=== PATIENT | female | born 1980 | race African-American/Black ===

== ENCOUNTER 2017-04-04 09:58 | Emergency (ER) | payer SELFPAY ==
[~2017-04-04] VITALS: Ht 175.3 cm; Wt 74.8 kg
[~2017-04-04 09:58] MED LIST: ASCO500T2 PO; ASPI-612 PO; CARV6.252 PO; DOCU-109 PO; FERR325T72 PO; FURO40TA4 PO; HYDR-2678 PO; LISI-338 PO; SPIR25TA3 PO
--- NOTE | 2017-04-04 10:25 | RAD ---
Indication chest pain and shortness of breath. A single view of the chest was obtained. Comparison is made to an examination 11/17/2015. The heart, pulmonary vessels and mediastinum appear unremarkable. A focal infiltrate is not seen. Significant pleural fluid is not present. There is no pneumothorax. IMPRESSION: No acute finding apparent in the chest
[2017-04-04] MEDS ORDERED: fentaNYL PF VIAL 100 MCG/2 ML VIAL IV ONE (10:30)
[2017-04-04 10:35] LABS: BASO # 0.1 x10^3/uL (0.0-0.2); BASO % 2 % (0-3); EOS % 4 % (0-3); HEMATOCRIT 29.3 % (36.0-47.0); HEMOGLOBIN 9.5 g/dL (12.0-15.5); LYMPH # 1.4 x10^3/uL (1.0-4.8); LYMPH % 36 % (24-48); MEAN CORPUSCULAR HEMOGLOBIN 25 pg (25-35); MEAN CORPUSCULAR HGB CONC 32 g/dL (31-37); MEAN CORPUSCULAR VOLUME 77 fL (79-100); MONO % 9 % (0-9); NEUT % 49 % (31-73); PLATELET COUNT 238 x10^3/uL (140-400); RED CELL DISTRIBUTION WIDTH 18.4 % (11.5-14.5); WHITE BLOOD COUNT 3.8 x10^3/uL (4.0-11.0)
--- NOTE | 2017-04-04 10:35 | PHYS DOC ---
Past Medical History Past Medical History: CHF, Hypertension, Other Additional Past Medical Histor: cardiomyopathy Past Surgical History: Other Additional Past Surgical Histo: cardiac cath Alcohol Use: Occasionally Drug Use: Marijuana Adult General Chief Complaint Chief Complaint: chest pain HPI HPI Patient is a 36 year old female who presents with 2 weeks of chest pain. The pain has been primarily constant in nature, nonradiating, left-sided of her chest, worsens with deep inspiration and cough, certain ways she stands. She denies any relieving factors. She's not been taking any of her medications for about 1 year. Patient has history of dilated cardiomyopathy with diastolic dysfunction. She had a negative heart catheter in June 2016. She previously was seen by Dr. Sutherland for her cardiac dysfunction. Patient denies any history of PE or DVT, unsure if she is supposed to be on blood thinners. She has not been taking anything for her symptoms. She states she's noncompliant with her CHF meds because she didn't like the way it made her feel. Review of Systems Review of Systems Constitutional: Denies fever or chills [] Eyes: Denies change in visual acuity, redness, or eye pain [] HENT: Denies nasal congestion or sore throat [] Respiratory: reports cough, reports exursional dypsnea Cardiovascular: No additional information not addressed in HPI [] GI: Denies abdominal pain, nausea, vomiting, bloody stools or diarrhea [] : Denies dysuria or hematuria [] Musculoskeletal: Denies back pain or joint pain [] Integument: Denies rash or skin lesions [] Neurologic: Denies headache, focal weakness or sensory changes [] Current Medications Current Medications Current Medications Medications (Trade) Dose Ordered Sig/[facility] Start Time Stop Time Status Last Admin Dose Admin Fentanyl Citrate (Fentanyl 2ml Vial) 50 mcg 1X ONCE 04/04/17 10:30 04/04/17 10:31 DC 04/04/17 11:03 50 MCG Allergies Allergies Allergies Coded Allergies Type Severity Reaction Last Updated Verified tramadol Allergy Severe Anaphylaxis 11/17/15 Yes Physical Exam Physical Exam Constitutional: Well developed, well nourished, no acute distress, non-toxic appearance. [] HENT: Normocephalic, atraumatic, bilateral external ears normal, oropharynx moist, no oral exudates, nose normal. [] Eyes: PERRLA, EOMI, conjunctiva normal, no discharge. [] Neck: Normal range of motion, no tenderness, supple, no stridor. [] Cardiovascular:Heart rate regular with regular rhythm, no murmur [] Lungs & Thorax: Bilateral breath sounds clear to auscultation , no wheeze or crackles Abdomen: Bowel sounds normal, soft, no tenderness, no masses, no pulsatile masses. [] Skin: Warm, dry, no erythema, no rash. [] Back: No tenderness, no CVA tenderness. [] Extremities: No tenderness, no cyanosis, no clubbing, ROM intact, no edema. [] Neurologic: Alert and oriented X 3, normal motor function, normal sensory function, no focal deficits noted. [] Psychologic: Affect normal, judgement normal, mood normal. [] Current Patient Data Vital Signs Vital Signs Date Time Temp Pulse Resp B/P (MAP) Pulse Ox O2 Delivery O2 Flow Rate FiO2 04/04/17 12:17 74 20 142/90 (107) 98 Room Air 04/04/17 10:05 98.4 98.4 Lab Values Laboratory Tests Test 04/04/17 10:00 04/04/17 10:04 04/04/17 10:14 04/04/17 10:18 White Blood Count 3.8 x10^3/uL (4.0-11.0) L Red Blood Count 3.80 x10^6/uL (3.50-5.40) Hemoglobin 9.5 g/dL (12.0-15.5) L Hematocrit 29.3 % (36.0-47.0) L Mean Corpuscular Volume 77 fL (79-100) L Mean Corpuscular Hemoglobin 25 pg (25-35) Mean Corpuscular Hemoglobin Concent 32 g/dL (31-37) Red Cell Distribution Width 18.4 % (11.5-14.5) H Platelet Count 238 x10^3/uL (140-400) Neutrophils (%) (Auto) 49 % (31-73) Lymphocytes (%) (Auto) 36 % (24-48) Monocytes (%) (Auto) 9 % (0-9) Eosinophils (%) (Auto) 4 % (0-3) H Basophils (%) (Auto) 2 % (0-3) Neutrophils # (Auto) 1.9 x10^3uL (1.8-7.7) Lymphocytes # (Auto) 1.4 x10^3/uL (1.0-4.8) Monocytes # (Auto) 0.3 x10^3/uL (0.0-1.1) Eosinophils # (Auto) 0.2 x10^3/uL (0.0-0.7) Basophils # (Auto) 0.1 x10^3/uL (0.0-0.2) Sodium Level 140 mmol/L (136-145) Potassium Level 4.2 mmol/L (3.5-5.1) Chloride Level 107 mmol/L (98-107) Carbon Dioxide Level 28 mmol/L (21-32) Anion Gap 5 (6-14) L 17 mmol/L (6-14) H Blood Urea Nitrogen 10 mg/dL (7-20) Creatinine 0.8 mg/dL (0.6-1.0) Estimated GFR (Cockcroft-Gault) 98.8 BUN/Creatinine Ratio 13 (6-20) Glucose Level 93 mg/dL (70-99) 87 mg/dL (70-99) Calcium Level 8.6 mg/dL (8.5-10.1) Magnesium Level 1.9 mg/dL (1.8-2.4) Total Bilirubin 0.3 mg/dL (0.2-1.0) Aspartate Amino Transferase (AST) 17 U/L (15-37) Alanine Aminotransferase (ALT) 19 U/L (14-59) Alkaline Phosphatase 57 U/L (46-116) XL-Uou-H-Type Natriuretic Peptide 724 pg/mL (0-124) H Total Protein 7.2 g/dL (6.4-8.2) Albumin 3.6 g/dL (3.4-5.0) Albumin/Globulin Ratio 1.0 (1.0-1.7) POC Urine HCG, Qualitative Hcg negative (Negative) POC Troponin I 0.00 ng/ml (<0.08) POC Hemoglobin 11.2 g/dL (12-15) L POC Hematocrit 33 % (36-40) L POC Sodium 142 mmol/L (135-145) POC Potassium 4.0 mmol/L (3.5-5.0) POC Chloride 104 mmol/L (98-110) POC Total CO2 26 mmol/L (23-32) POC Blood Urea Nitrogen 8 mg/dL (8-26) POC Creatinine 0.8 mg/dL (0.5-1.4) POC Ionized Calcium (Richard) 1.21 mmol/L (1.13-1.32) Laboratory Tests 04/04/17 10:00 Laboratory Tests 04/04/17 10:00 04/04/17 10:18 EKG EKG 68 bpm, sinus, normal axis, QTC 542, no ST elevation or depression, T waves nonischemic, interpreted by me[] Radiology/Procedures Radiology/Procedures CXR: no acute finding in chest per Dr. Rowley[] Course & Med Decision Making Course & Med Decision Making Pertinent Labs and Imaging studies reviewed. (See chart for details) Pt appears in no distress, COUNSELED PT ON DANGERS OF SMOKING, VSS, AF, no acute signs of CHF exacerbation, pneumonia, ACS, no signs of PE with normal HR, O2 sats, RR. Pt feeling comfortable after treatment, dc'd and instructed she must f/u with Dr. Kaye to discuss resuming medication due to her history. Dragon Disclaimer Dragon Disclaimer This electronic medical record was generated, in whole or in part, using a voice recognition dictation system. Departure Departure Impression: Primary Impression: Chest pain Disposition: HOME, SELF-CARE Condition: IMPROVED Referrals: NO PCP (PCP) Scripts Ibuprofen (IBUPROFEN) 600 Mg Tablet 600 MG PO PRN Q6HRS Y for PAIN, #20 TAB take with food or milk Prov: YU SIGALA MD 04/04/17 YU SIGALA MD Apr 04, 2017 10:35
[2017-04-04 10:40] LABS: CALCIUM 8.6 mg/dL (8.5-10.1); CREATININE 0.8 mg/dL (0.6-1.0); GFR 98.8; POTASSIUM 4.2 mmol/L (3.5-5.1)
--- NOTE | 2017-04-04 10:45 | EKG ---
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
[2017-04-04 10:46] LABS: ALBUMIN 3.6 g/dL (3.4-5.0); MAGNESIUM 1.9 mg/dL (1.8-2.4); TOTAL BILIRUBIN 0.3 mg/dL (0.2-1.0); TOTAL PROTEIN 7.2 g/dL (6.4-8.2)
[2017-04-04] MEDS ORDERED: IBUP-1007 PO (11:42)
[2017-04-04 12:17] VITALS: BP 142/90
== END 2017-04-04 12:19 | disposition home or self-care (01) ==
LOC: ER 09:58
DX: R07.89 Other chest pain (principal); I11.0 Hypertensive heart disease with heart failure; I50.9 Heart failure, unspecified; I42.0 Dilated cardiomyopathy; Z88.5 Allergy status to narcotic agent
CPT/HCPCS: 36415; 71010; 80047; 80053; 81025; 83735; 83880; 84484; 85025; 93005; 96374; 99285; J3010

== ENCOUNTER 2017-12-11 17:26 | Emergency (ER) | payer SELFPAY ==
[2017-12-11 17:44] LABS: URINE HCG POC HCG POSITIVE (Negative)
[2017-12-11 18:01] LABS: ADD MAN DIFF? NO
[2017-12-11 18:06] LABS: BASO # 0.1 x10^3/uL (0.0-0.2); BASO % 1 % (0-3); EOS # 0.1 x10^3/uL (0.0-0.7); EOS % 1 % (0-3); HEMOGLOBIN 9.1 g/dL (12.0-15.5); LYMPH # 1.6 x10^3/uL (1.0-4.8); LYMPH % 18 % (24-48); MEAN CORPUSCULAR HEMOGLOBIN 26 pg (25-35); MEAN CORPUSCULAR HGB CONC 34 g/dL (31-37); MEAN CORPUSCULAR VOLUME 76 fL (79-100); MONO # 0.9 x10^3/uL (0.0-1.1); MONO % 10 % (0-9); NEUT # 6.3 x10^3uL (1.8-7.7); NEUT % 70 % (31-73); PLATELET COUNT 280 x10^3/uL (140-400); RED BLOOD COUNT 3.53 x10^6/uL (3.50-5.40); RED CELL DISTRIBUTION WIDTH 19.9 % (11.5-14.5)
[2017-12-11 18:07] LABS: BILIRUBIN,URINE NEGATIVE (NEG); CLARITY,URINE CLOUDY; COLOR,URINE YELLOW; GLUCOSE,URINE NEGATIVE (NEG); NITRITE,URINE NEGATIVE (NEG); PROTEIN,URINE NEGATIVE (NEG-TRACE)
[2017-12-11 18:14] LABS: ANION GAP 5 (6-14); BLOOD UREA NITROGEN 8 mg/dL (7-20); BUN/CREATININE RATIO 11 (6-20); CALCIUM 9.2 mg/dL (8.5-10.1); CARBON DIOXIDE 28 mmol/L (21-32); CHLORIDE 105 mmol/L (98-107); CREATININE 0.7 mg/dL (0.6-1.0); GFR 114.6; GLUCOSE 92 mg/dL (70-99); POTASSIUM 3.8 mmol/L (3.5-5.1); SODIUM 138 mmol/L (136-145)
[2017-12-11 18:18] LABS: AMORPHOUS SEDIMENT,UR PRESENT /HPF; BACTERIA,URINE FEW /HPF (0-FEW); RBC,URINE 0 /HPF (0-2); SQUAMOUS EPITHELIAL CELL,UR FEW /LPF
[2017-12-11 18:20] LABS: ALBUMIN 3.4 g/dL (3.4-5.0); ALBUMIN/GLOBULIN RATIO 0.9 (1.0-1.7); ALK PHOS 53 U/L (46-116); ALT (SGPT) 14 U/L (14-59); AST (SGOT) 10 U/L (15-37); LIPASE 72 U/L (73-393); TOTAL BILIRUBIN 0.3 mg/dL (0.2-1.0); TOTAL PROTEIN 7.3 g/dL (6.4-8.2)
[2017-12-11] MEDS: metroNIDAZOLE 500 MG TABLET PO (19:15)
[2017-12-11] MEDS: AZITHROMYCIN 250 MG TABLET. PO (19:15)
[2017-12-11] MEDS: cefTRIAXone IM 250 MG VIAL IM (19:16)
[2017-12-11] MEDS ORDERED: predniSONE 20 MG TABLET PO (20:30)
[2017-12-11] MEDS: IPRATRPIUM/ALBUTEROL 0.5/2.5MG 3 ML NEBU. NEB (20:33)
[2017-12-13 15:26] LABS: CHLAMYDIA PROBE Negative (Negative); GC PROBE Negative (Negative)
== END 2017-12-11 21:10 | disposition home or self-care (01) ==
LOC: ER 21:10
DX: O23.41 Unspecified infection of urinary tract in pregnancy, first trimester (principal); O98.311 Other infections with a predominantly sexual mode of transmission complicating pregnancy, first trimester; A59.01 Trichomonal vulvovaginitis; O99.011 Anemia complicating pregnancy, first trimester; O99.411 Diseases of the circulatory system complicating pregnancy, first trimester; O99.321 Drug use complicating pregnancy, first trimester; I11.0 Hypertensive heart disease with heart failure; I50.9 Heart failure, unspecified; I42.9 Cardiomyopathy, unspecified; F12.10 Cannabis abuse, uncomplicated; Z3A.08 8 weeks gestation of pregnancy; Z88.6 Allergy status to analgesic agent
CPT/HCPCS: 36415; 76801; 76817; 80053; 81001; 81025; 83690; 84702; 85025; 87086; 87491; 87591; 94640; 96372; 99285-25; J0696; J7620; Q0111; Q0144

== ENCOUNTER 2018-03-22 10:03 | Inpatient (IN) | payer SELFPAY ==
[2018-03-22] VITALS (12 sets, daily range): BP systolic 106–145; BP diastolic 58–83
[~2018-03-22] VITALS: Ht 175.3 cm; Wt 69.1 kg
[~2018-03-22 10:03] MED LIST changes: +CEPH500T PO; +IBUP-1007 PO; +PNV1TABL25 PO; -SPIR25TA3 PO; +SPIR25TA5 PO
[2018-03-22] MEDS ORDERED: ONDANSETRON PF 4 MG/2 ML VIAL. IV PRN (11:30)
[2018-03-22 11:49] LABS: BILIRUBIN,URINE NEGATIVE (NEG); CLARITY,URINE CLEAR; COLOR,URINE YELLOW; NITRITE,URINE NEGATIVE (NEG); PH,URINE 7.5; PROTEIN,URINE NEGATIVE (NEG-TRACE)
[2018-03-22 11:56] LABS: AMORPHOUS SEDIMENT,UR PRESENT /HPF; BACTERIA,URINE 0 /HPF (0-FEW); RBC,URINE 0 /HPF (0-2); SQUAMOUS EPITHELIAL CELL,UR FEW /LPF
[2018-03-22 12:00] LABS: AMPHETAMINE/METHAMPHETAMINE NEG (NEG); BARBITURATES NEG (NEG); BENZODIAZEPINES NEG (NEG); CANNABINOIDS POS (NEG); COCAINE NEG (NEG); METHADONE NEG (NEG); OPIATES NEG (NEG); PHENCYCLIDINE NEG (NEG)
[2018-03-22 12:28] LABS: BASO # 0.1 x10^3/uL (0.0-0.2); BASO % 1 % (0-3); EOS # 0.1 x10^3/uL (0.0-0.7); EOS % 2 % (0-3); HEMATOCRIT 24.6 % (36.0-47.0); LYMPH # 1.5 x10^3/uL (1.0-4.8); LYMPH % 20 % (24-48); MEAN CORPUSCULAR HEMOGLOBIN 26 pg (25-35); MEAN CORPUSCULAR HGB CONC 33 g/dL (31-37); MEAN CORPUSCULAR VOLUME 79 fL (79-100); MONO # 0.6 x10^3/uL (0.0-1.1); MONO % 8 % (0-9); NEUT # 5.4 x10^3uL (1.8-7.7); NEUT % 70 % (31-73); PLATELET COUNT 257 x10^3/uL (140-400); RED CELL DISTRIBUTION WIDTH 17.6 % (11.5-14.5); WHITE BLOOD COUNT 7.8 x10^3/uL (4.0-11.0)
[2018-03-22 12:41] LABS: ALBUMIN 2.9 g/dL (3.4-5.0); ALBUMIN/GLOBULIN RATIO 0.8 (1.0-1.7); CALCIUM 8.2 mg/dL (8.5-10.1); CREATININE 0.6 mg/dL (0.6-1.0); GFR 136.9; POTASSIUM 3.9 mmol/L (3.5-5.1); TOTAL BILIRUBIN 0.6 mg/dL (0.2-1.0); TOTAL PROTEIN 6.7 g/dL (6.4-8.2)
[2018-03-22] MEDS: IV RINGERS,LACTATED 1000ML 1,000 ML IV SCH ×2 (12:51→19:28)
--- NOTE | 2018-03-22 12:59 | RAD ---
EXAM: Obstetrics sonogram. HISTORY: No care. TECHNIQUE: Sonographic imaging of a gravid uterus was performed. COMPARISON: 12/11/2017. FINDINGS: There is a single intrauterine fetus in breech presentation with a heart rate of 132 bpm. The cervix is closed and measures 3.6 cm in length. There is a grade 1 anterior placenta without evidence of placenta previa. The maternal adnexal regions are unremarkable. There is a three-vessel umbilical cord with normal insertion. There is a normal amniotic fluid index. The stomach, kidneys, bladder, spine, brain, facial profile and heart are unremarkable. The biparietal diameter is 5.14 cm, corresponding with 21 weeks and 4 days. The head circumference is 20.18 cm, corresponding with 22 weeks and 2 days. The abdominal circumference is 18.19 cm, corresponding with 23 weeks and 0 days. The femoral length is 4.33 cm, corresponding with 24 weeks and 1 day. The estimated gestational age based on combined ultrasound measurements is 22 weeks and 5 days. The estimated weight is 584 g, corresponding with the 43rd percentile for gestational age based on LMP of 23 weeks and 1 day. The BRUNA is 07/21/2018. IMPRESSION: Single intrauterine fetus with an estimated gestational age based on ultrasound measurements of 20 weeks and 5 days and heart rate of 132 bpm. Electronically signed by: Kym Ojeda MD (03/22/2018 12:56 PM) [place] [id number]
--- NOTE | 2018-03-22 13:31 | PDOC1 ---
OB - History Hx of Present Care: None Ultrasounds: No ultrasounds Obstetrical Complications: None Medical Complications: Cardiovascular (h/o cardiomyopathy) Past Family/Social History * Past Medical, Surgical, Family and Obstetric Histories reviewed from chart. Blood Type: O+ Rubella: Unknown RPR/VDRL: Unknown GBS Status: Unknown HBsAG: Unknown OB - Chief Complaint & HPI Date of Admission: Date of Admission: Mar 22, 2018 at 10:03 Chief Complaint/History : 5 Para: 4 EGA: 22 Reason for admission: other (abd pain and chest pain) Admission Nurse Assessment Rev: Yes OB - Admission Exam Physical Exam Vitals: VS - Last 72 Hours, by Label Date Time Temp Pulse Resp B/P (MAP) Pulse Ox O2 Delivery O2 Flow Rate FiO2 03/22/18 12:48 98.7 75 20 124/71 (88) 97 98.7 HEENT: Normal Heart: Regular Rate Lungs: Clear Abdomen: Gravid, Non tender, Soft Extremities: Edema Reflexes: Normal Cervical Dilatation: None Effacement: 0% Station: Ballotable Membranes: Intact Heart Rate: Normal Decelerations: No decelerations Contractions on Admission: None Text A: 22 wks IUP H/o Cardiomyopathy CP and SOB P: Admit for cardiac evaluation. Cardiac Consult Dr. Calvert. T's daily. EKG and Echocardiogram. KORTNEY YA Jr, MD Mar 22, 2018 13:31
--- NOTE | 2018-03-22 14:33 | EKG ---
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
[2018-03-22] MEDS ORDERED: DEXTROSE 50% 25 GM / 50ML DISP.SYRIN. IV ONE (15:19)
[2018-03-22 15:26] LABS: BASO # 0.1 x10^3/uL (0.0-0.2); BASO % 1 % (0-3); EOS # 0.2 x10^3/uL (0.0-0.7); EOS % 2 % (0-3); HEMATOCRIT 23.6 % (36.0-47.0); HEMOGLOBIN 7.8 g/dL (12.0-15.5); LYMPH # 1.8 x10^3/uL (1.0-4.8); LYMPH % 22 % (24-48); MEAN CORPUSCULAR HEMOGLOBIN 26 pg (25-35); MEAN CORPUSCULAR HGB CONC 33 g/dL (31-37); MEAN CORPUSCULAR VOLUME 79 fL (79-100); MONO # 0.7 x10^3/uL (0.0-1.1); MONO % 9 % (0-9); NEUT # 5.3 x10^3uL (1.8-7.7); NEUT % 66 % (31-73); PLATELET COUNT 239 x10^3/uL (140-400); RED BLOOD COUNT 2.99 x10^6/uL (3.50-5.40); RED CELL DISTRIBUTION WIDTH 17.8 % (11.5-14.5); WHITE BLOOD COUNT 8.1 x10^3/uL (4.0-11.0)
[2018-03-22 15:54] LABS: ALBUMIN 2.7 g/dL (3.4-5.0); ALBUMIN/GLOBULIN RATIO 0.7 (1.0-1.7); CALCIUM 8.1 mg/dL (8.5-10.1); CREATININE 0.6 mg/dL (0.6-1.0); GFR 136.9; POTASSIUM 3.6 mmol/L (3.5-5.1); TOTAL BILIRUBIN 0.6 mg/dL (0.2-1.0); TOTAL PROTEIN 6.4 g/dL (6.4-8.2)
[2018-03-22] MEDS ORDERED: MAGNESIUM SULFATE 2GM 50 ML IV ONE (16:15)
[2018-03-22] MEDS: FUROSEMIDE 20 MG/2 ML VIAL. IVP SCH ×2 (19:46→23:55)
[2018-03-22] MEDS: ACETAMINOPHEN 325 MG TABLET. PO PRN (19:46)
--- NOTE | 2018-03-22 19:55 | PDOC2 ---
CONSULT Date of Consult Date of Consult DATE: 03/22/18 TIME: 19:43 Reason for Consult Reason for Consult: dyspnea Referring Physician Referring Physician: Dr. Small Identification/Chief Complaint Chief Complaint dyspnea History of Present Illness Reason for Visit: Patient is a 37 year old female that is 23 weeks gestation, that has a known hx of a non-ischemic cardiomyopathy. The LV EF showed 30% in 2016 and she now comes in with progressive dyspnea, lightheadedness and having episodes of chest pain and back pain. After arrival patient was bradycardic with a heart rate in the 40-50's and BP was elevated. At that point I went to see her and transferred her to ICU. An emergency bedside echo was done that showed a dilated LV with an EF of 30% and moderate mitral regurgitation. Past Medical History Cardiovascular: CHF, HTN Pulmonary: No pertinent hx, Pulmonary embolus CENTRAL NERVOUS SYSTEM: Other GI: Constipation Heme/Onc: No pertinent hx Hepatobiliary: No pertinent hx Psych: No pertinent hx Musculoskeletal: Other Rheumatologic: No pertinent hx Infectious disease: No pertinent hx Renal/: Other Endocrine: Other Past Surgical History Past Surgical History: Other Family History Family History: Coronary Artery Disease Social History ALCOHOL: none Drugs: Marijuana Lives: with Family Current Medications Current Medications Current Medications Ringer's Solution 1,000 ml @ 125 mls/hr Q8H IV Last administered on 03/22/18at 12:51; Start 03/22/18 at 12:00 Ondansetron HCl (Zofran) 8 mg PRN Q6HRS PRN IV NAUSEA 1ST CHOICE Last administered on 03/22/18at 12:52; Start 03/22/18 at 11:30 Furosemide (Lasix) 40 mg Q12HR IVP ; Start 03/22/18 at 21:00; Stop 03/22/18 at 21:00; Status DC Dobutamine HCl/ Dextrose 250 ml @ 11.363 mls/ hr CONT PRN IV SEE I/O RECORD Last administered on 03/22/18at 15:16; Start 03/22/18 at 15:00 Dextrose (Dextrose 50%-Water Syringe) 25 gm STK-MED ONCE IV ; Start 03/22/18 at 15:19; Stop 03/22/18 at 15:20; Status DC Furosemide (Lasix) 40 mg Q12HR IVP ; Start 03/22/18 at 16:30 Magnesium Sulfate 50 ml @ 25 mls/hr 1X ONCE IV ; Start 03/22/18 at 16:15; Stop 03/22/18 at 18:14; Status DC Acetaminophen (Tylenol) 650 mg PRN Q6HRS PRN PO MILD PAIN / TEMP; Start at 19:45 Active Scripts Active Tablet (Pnv Cmb#95/Ferrous Fumarate/Fa) 1 Each Tablet 1 Tab PO DAILY Cephalexin 500 Mg Tablet 1 Tab PO BID Ibuprofen 600 Mg Tablet 600 Mg PO PRN Q6HRS PRN take with food or milk Lisinopril 5 Mg Tablet 5 Mg PO DAILY Furosemide 40 Mg Tablet 20 Mg PO DAILY Carvedilol 6.25 Mg Tablet 3.125 Mg PO BIDWMEALS Aspirin Ec (Aspirin) 81 Mg Tablet.dr 81 Mg PO DAILYWBKFT Allergies Allergies: Coded Allergies: lisinopril (Verified Allergy, Severe, Anaphylaxis, 03/22/18) tramadol (Verified Allergy, Severe, Anaphylaxis, 11/17/15) Physical Exam General: Alert, Oriented X3, Cooperative, moderate distress HEENT: PERRLA Lungs: Other (breath sounds decreased and rales at both bases, no wheezing) Heart: Normal S1, Normal S2 (+S3, II/ systolic murmur ), Other (bradycardic, regular rhythm) Abdomen: Other (appropriate for gestational stage ) Extremities: Other (1+ edema ) Vitals VITALS Vital Signs Date Time Temp Pulse Resp B/P (MAP) Pulse Ox O2 Delivery O2 Flow Rate FiO2 03/22/18 17:00 Nasal Cannula 4.0 03/22/18 16:30 72 16 136/74 (94) 100 03/22/18 12:48 98.7 98.7 Labs Labs Laboratory Tests Test 03/22/18 11:25 03/22/18 12:19 03/22/18 13:20 03/22/18 15:18 Urine Collection Type Unknown Urine Color Yellow Urine Clarity Clear Urine pH 7.5 Urine Specific [place] 1.015 Urine Protein Negative mg/dL (NEG-TRACE) Urine Glucose (UA) Negative mg/dL (NEG) Urine Ketones (Stick) 40 mg/dL (NEG) Urine Blood Negative (NEG) Urine Nitrite Negative (NEG) Urine Bilirubin Negative (NEG) Urine Urobilinogen Dipstick 1.0 mg/dL (0.2 mg/dL) Urine Leukocyte Esterase Negative (NEG) Urine RBC 0 /HPF (0-2) Urine WBC 1-4 /HPF (0-4) Urine Squamous Epithelial Cells Few /LPF Urine Transitional Epithelial Cells Few /LPF Urine Amorphous Sediment Present /HPF Urine Bacteria 0 /HPF (0-FEW) Urine Opiates Screen Neg (NEG) Urine Methadone Screen Neg (NEG) Urine Barbiturates Neg (NEG) Urine Phencyclidine Screen Neg (NEG) Urine Amphetamine/Methamphetamine Neg (NEG) Urine Benzodiazepines Screen Neg (NEG) Urine Cocaine Screen Neg (NEG) Urine Cannabinoids Screen Pos (NEG) Urine Ethyl Alcohol Neg (NEG) White Blood Count 7.8 x10^3/uL (4.0-11.0) Red Blood Count 3.10 x10^6/uL (3.50-5.40) Hemoglobin 8.0 g/dL (12.0-15.5) Hematocrit 24.6 % (36.0-47.0) Mean Corpuscular Volume 79 fL (79-100) Mean Corpuscular Hemoglobin 26 pg (25-35) Mean Corpuscular Hemoglobin Concent 33 g/dL (31-37) Red Cell Distribution Width 17.6 % (11.5-14.5) Platelet Count 257 x10^3/uL (140-400) Neutrophils (%) (Auto) 70 % (31-73) Lymphocytes (%) (Auto) 20 % (24-48) Monocytes (%) (Auto) 8 % (0-9) Eosinophils (%) (Auto) 2 % (0-3) Basophils (%) (Auto) 1 % (0-3) Neutrophils # (Auto) 5.4 x10^3uL (1.8-7.7) Lymphocytes # (Auto) 1.5 x10^3/uL (1.0-4.8) Monocytes # (Auto) 0.6 x10^3/uL (0.0-1.1) Eosinophils # (Auto) 0.1 x10^3/uL (0.0-0.7) Basophils # (Auto) 0.1 x10^3/uL (0.0-0.2) Sodium Level 137 mmol/L (136-145) Potassium Level 3.9 mmol/L (3.5-5.1) Chloride Level 104 mmol/L (98-107) Carbon Dioxide Level 24 mmol/L (21-32) Anion Gap 9 (6-14) Blood Urea Nitrogen 7 mg/dL (7-20) Creatinine 0.6 mg/dL (0.6-1.0) Estimated GFR (Cockcroft-Gault) 136.9 BUN/Creatinine Ratio 12 (6-20) Glucose Level 69 mg/dL (70-99) Calcium Level 8.2 mg/dL (8.5-10.1) Total Bilirubin 0.6 mg/dL (0.2-1.0) Aspartate Amino Transf (AST/SGOT) 15 U/L (15-37) Alanine Aminotransferase (ALT/SGPT) 17 U/L (14-59) Alkaline Phosphatase 56 U/L (46-116) Total Protein 6.7 g/dL (6.4-8.2) Albumin 2.9 g/dL (3.4-5.0) Albumin/Globulin Ratio 0.8 (1.0-1.7) Hepatitis B Surface Antigen Nonreactive (Nonreactive) HIV (1&2) Antibody Screen Nonreactive (Nonreactive) Glucose (Fingerstick) 57 mg/dL (70-99) Test 03/22/18 15:20 03/22/18 15:43 03/22/18 17:06 03/22/18 17:45 White Blood Count 8.1 x10^3/uL (4.0-11.0) Red Blood Count 2.99 x10^6/uL (3.50-5.40) Hemoglobin 7.8 g/dL (12.0-15.5) Hematocrit 23.6 % (36.0-47.0) Mean Corpuscular Volume 79 fL (79-100) Mean Corpuscular Hemoglobin 26 pg (25-35) Mean Corpuscular Hemoglobin Concent 33 g/dL (31-37) Red Cell Distribution Width 17.8 % (11.5-14.5) Platelet Count 239 x10^3/uL (140-400) Neutrophils (%) (Auto) 66 % (31-73) Lymphocytes (%) (Auto) 22 % (24-48) Monocytes (%) (Auto) 9 % (0-9) Eosinophils (%) (Auto) 2 % (0-3) Basophils (%) (Auto) 1 % (0-3) Neutrophils # (Auto) 5.3 x10^3uL (1.8-7.7) Lymphocytes # (Auto) 1.8 x10^3/uL (1.0-4.8) Monocytes # (Auto) 0.7 x10^3/uL (0.0-1.1) Eosinophils # (Auto) 0.2 x10^3/uL (0.0-0.7) Basophils # (Auto) 0.1 x10^3/uL (0.0-0.2) Prothrombin Time 14.0 SEC (11.7-14.0) Prothromb Time International Ratio 1.1 (0.8-1.1) Activated Partial Thromboplast Time 28 SEC (24-38) Sodium Level 137 mmol/L (136-145) Potassium Level 3.6 mmol/L (3.5-5.1) Chloride Level 104 mmol/L (98-107) Carbon Dioxide Level 24 mmol/L (21-32) Anion Gap 9 (6-14) Blood Urea Nitrogen 6 mg/dL (7-20) Creatinine 0.6 mg/dL (0.6-1.0) Estimated GFR (Cockcroft-Gault) 136.9 BUN/Creatinine Ratio 10 (6-20) Glucose Level 64 mg/dL (70-99) Calcium Level 8.1 mg/dL (8.5-10.1) Magnesium Level 1.7 mg/dL (1.8-2.4) Total Bilirubin 0.6 mg/dL (0.2-1.0) Aspartate Amino Transf (AST/SGOT) 16 U/L (15-37) Alanine Aminotransferase (ALT/SGPT) 16 U/L (14-59) Alkaline Phosphatase 52 U/L (46-116) Total Protein 6.4 g/dL (6.4-8.2) Albumin 2.7 g/dL (3.4-5.0) Albumin/Globulin Ratio 0.7 (1.0-1.7) Glucose (Fingerstick) 77 mg/dL (70-99) 74 mg/dL (70-99) 94 mg/dL (70-99) Test 03/22/18 19:30 Glucose (Fingerstick) 122 mg/dL (70-99) Laboratory Tests Test 03/22/18 11:25 8/29/18 12:19 03/22/18 13:20 03/22/18 15:18 Urine Collection Type Unknown Urine Color Yellow Urine Clarity Clear Urine pH 7.5 Urine Specific [place] 1.015 Urine Protein Negative mg/dL (NEG-TRACE) Urine Glucose (UA) Negative mg/dL (NEG) Urine Ketones (Stick) 40 mg/dL (NEG) Urine Blood Negative (NEG) Urine Nitrite Negative (NEG) Urine Bilirubin Negative (NEG) Urine Urobilinogen Dipstick 1.0 mg/dL (0.2 mg/dL) Urine Leukocyte Esterase Negative (NEG) Urine RBC 0 /HPF (0-2) Urine WBC 1-4 /HPF (0-4) Urine Squamous Epithelial Cells Few /LPF Urine Transitional Epithelial Cells Few /LPF Urine Amorphous Sediment Present /HPF Urine Bacteria 0 /HPF (0-FEW) Urine Opiates Screen Neg (NEG) Urine Methadone Screen Neg (NEG) Urine Barbiturates Neg (NEG) Urine Phencyclidine Screen Neg (NEG) Urine Amphetamine/Methamphetamine Neg (NEG) Urine Benzodiazepines Screen Neg (NEG) Urine Cocaine Screen Neg (NEG) Urine Cannabinoids Screen Pos (NEG) Urine Ethyl Alcohol Neg (NEG) White Blood Count 7.8 x10^3/uL (4.0-11.0) Red Blood Count 3.10 x10^6/uL (3.50-5.40) Hemoglobin 8.0 g/dL (12.0-15.5) Hematocrit 24.6 % (36.0-47.0) Mean Corpuscular Volume 79 fL (79-100) Mean Corpuscular Hemoglobin 26 pg (25-35) Mean Corpuscular Hemoglobin Concent 33 g/dL (31-37) Red Cell Distribution Width 17.6 % (11.5-14.5) Platelet Count 257 x10^3/uL (140-400) Neutrophils (%) (Auto) 70 % (31-73) Lymphocytes (%) (Auto) 20 % (24-48) Monocytes (%) (Auto) 8 % (0-9) Eosinophils (%) (Auto) 2 % (0-3) Basophils (%) (Auto) 1 % (0-3) Neutrophils # (Auto) 5.4 x10^3uL (1.8-7.7) Lymphocytes # (Auto) 1.5 x10^3/uL (1.0-4.8) Monocytes # (Auto) 0.6 x10^3/uL (0.0-1.1) Eosinophils # (Auto) 0.1 x10^3/uL (0.0-0.7) Basophils # (Auto) 0.1 x10^3/uL (0.0-0.2) Sodium Level 137 mmol/L (136-145) Potassium Level 3.9 mmol/L (3.5-5.1) Chloride Level 104 mmol/L (98-107) Carbon Dioxide Level 24 mmol/L (21-32) Anion Gap 9 (6-14) Blood Urea Nitrogen 7 mg/dL (7-20) Creatinine 0.6 mg/dL (0.6-1.0) Estimated GFR (Cockcroft-Gault) 136.9 BUN/Creatinine Ratio 12 (6-20) Glucose Level 69 mg/dL (70-99) Calcium Level 8.2 mg/dL (8.5-10.1) Total Bilirubin 0.6 mg/dL (0.2-1.0) Aspartate Amino Transf (AST/SGOT) 15 U/L (15-37) Alanine Aminotransferase (ALT/SGPT) 17 U/L (14-59) Alkaline Phosphatase 56 U/L (46-116) Total Protein 6.7 g/dL (6.4-8.2) Albumin 2.9 g/dL (3.4-5.0) Albumin/Globulin Ratio 0.8 (1.0-1.7) Hepatitis B Surface Antigen Nonreactive (Nonreactive) HIV (1&2) Antibody Screen Nonreactive (Nonreactive) Glucose (Fingerstick) 57 mg/dL (70-99) Test 03/22/18 15:20 03/22/18 15:43 03/22/18 17:06 03/22/18 17:45 White Blood Count 8.1 x10^3/uL (4.0-11.0) Red Blood Count 2.99 x10^6/uL (3.50-5.40) Hemoglobin 7.8 g/dL (12.0-15.5) Hematocrit 23.6 % (36.0-47.0) Mean Corpuscular Volume 79 fL (79-100) Mean Corpuscular Hemoglobin 26 pg (25-35) Mean Corpuscular Hemoglobin Concent 33 g/dL (31-37) Red Cell Distribution Width 17.8 % (11.5-14.5) Platelet Count 239 x10^3/uL (140-400) Neutrophils (%) (Auto) 66 % (31-73) Lymphocytes (%) (Auto) 22 % (24-48) Monocytes (%) (Auto) 9 % (0-9) Eosinophils (%) (Auto) 2 % (0-3) Basophils (%) (Auto) 1 % (0-3) Neutrophils # (Auto) 5.3 x10^3uL (1.8-7.7) Lymphocytes # (Auto) 1.8 x10^3/uL (1.0-4.8) Monocytes # (Auto) 0.7 x10^3/uL (0.0-1.1) Eosinophils # (Auto) 0.2 x10^3/uL (0.0-0.7) Basophils # (Auto) 0.1 x10^3/uL (0.0-0.2) Prothrombin Time 14.0 SEC (11.7-14.0) Prothromb Time International Ratio 1.1 (0.8-1.1) Activated Partial Thromboplast Time 28 SEC (24-38) Sodium Level 137 mmol/L (136-145) Potassium Level 3.6 mmol/L (3.5-5.1) Chloride Level 104 mmol/L (98-107) Carbon Dioxide Level 24 mmol/L (21-32) Anion Gap 9 (6-14) Blood Urea Nitrogen 6 mg/dL (7-20) Creatinine 0.6 mg/dL (0.6-1.0) Estimated GFR (Cockcroft-Gault) 136.9 BUN/Creatinine Ratio 10 (6-20) Glucose Level 64 mg/dL (70-99) Calcium Level 8.1 mg/dL (8.5-10.1) Magnesium Level 1.7 mg/dL (1.8-2.4) Total Bilirubin 0.6 mg/dL (0.2-1.0) Aspartate Amino Transf (AST/SGOT) 16 U/L (15-37) Alanine Aminotransferase (ALT/SGPT) 16 U/L (14-59) Alkaline Phosphatase 52 U/L (46-116) Total Protein 6.4 g/dL (6.4-8.2) Albumin 2.7 g/dL (3.4-5.0) Albumin/Globulin Ratio 0.7 (1.0-1.7) Glucose (Fingerstick) 77 mg/dL (70-99) 74 mg/dL (70-99) 94 mg/dL (70-99) Test 03/22/18 19:30 Glucose (Fingerstick) 122 mg/dL (70-99) Assessment/Plan Assessment/Plan This patient with a non-ischemic dilated cardiomyopathy, she is in acute pulmonary edema secondary to systolic dysfunction and valvular disease with MR. She is also having issues hypoglycemia, at this point I would like to diurese her, check labs, and monitor her in the ICU. I attempted to start dobutamine drip but the patient did not tolerate this well and this was stopped. Will follow the patient and thank you for allowing me to participate in the care of this patient. QING TIRADO MD Mar 22, 2018 19:55
[2018-03-22 19:57] LABS: BASE EXCESS ABG 0 mmol/L (-3-3); HCO3 ABG 24 mmol/L (21-28); PCO2 ABG 35 mmHg (35-46); PO2 ABG 149 mmHg (85-108); SAT O2 ABG 99 % (92-99)
[2018-03-22 20:01] LABS: FIO2 ABG 36
[2018-03-22] MEDS ORDERED: FUROSEMIDE 20 MG/2 ML VIAL. IVP SCH (21:00)
[2018-03-23] VITALS (23 sets, daily range): BP systolic 107–133; BP diastolic 56–80
[2018-03-23] MEDS: ACETAMINOPHEN 325 MG TABLET. PO PRN ×3 (02:10→20:52)
[2018-03-23] MEDS: IV RINGERS,LACTATED 1000ML 1,000 ML IV SCH ×3 (04:00→20:00)
[2018-03-23 08:01] LABS: ALBUMIN/GLOBULIN RATIO 0.7 (1.0-1.7); CALCIUM 8.5 mg/dL (8.5-10.1); CREATININE 0.7 mg/dL (0.6-1.0); GFR 114.6; TOTAL BILIRUBIN 0.6 mg/dL (0.2-1.0); TOTAL PROTEIN 7.4 g/dL (6.4-8.2)
[2018-03-23 08:51] LABS: THYROID STIM HORMONE (TSH) 0.714 uIU/mL (0.358-3.74)
[2018-03-23] MEDS: FUROSEMIDE 20 MG/2 ML VIAL. IVP SCH ×2 (09:42→20:58)
--- NOTE | 2018-03-23 10:30 | PDOC ---
OB Progress Note Date of Service 03/23/18 Time of Evaluation 1025 Notes Pt. breathing much better after lasix. No CP, Abd pain or dizziness. Echo at 30%. Lab Laboratory Tests Test 03/22/18 11:25 03/22/18 12:19 03/22/18 13:20 03/22/18 15:18 Urine Collection Type Unknown Urine Color Yellow Urine Clarity Clear Urine pH 7.5 Urine Specific [place] 1.015 Urine Protein Negative mg/dL (NEG-TRACE) Urine Glucose (UA) Negative mg/dL (NEG) Urine Ketones (Stick) 40 mg/dL (NEG) Urine Blood Negative (NEG) Urine Nitrite Negative (NEG) Urine Bilirubin Negative (NEG) Urine Urobilinogen Dipstick 1.0 mg/dL (0.2 mg/dL) Urine Leukocyte Esterase Negative (NEG) Urine RBC 0 /HPF (0-2) Urine WBC 1-4 /HPF (0-4) Urine Squamous Epithelial Cells Few /LPF Urine Transitional Epithelial Cells Few /LPF Urine Amorphous Sediment Present /HPF Urine Bacteria 0 /HPF (0-FEW) Urine Opiates Screen Neg (NEG) Urine Methadone Screen Neg (NEG) Urine Barbiturates Neg (NEG) Urine Phencyclidine Screen Neg (NEG) Urine Amphetamine/Methamphetamine Neg (NEG) Urine Benzodiazepines Screen Neg (NEG) Urine Cocaine Screen Neg (NEG) Urine Cannabinoids Screen Pos (NEG) Urine Ethyl Alcohol Neg (NEG) White Blood Count 7.8 x10^3/uL (4.0-11.0) Red Blood Count 3.10 x10^6/uL (3.50-5.40) Hemoglobin 8.0 g/dL (12.0-15.5) Hematocrit 24.6 % (36.0-47.0) Mean Corpuscular Volume 79 fL (79-100) Mean Corpuscular Hemoglobin 26 pg (25-35) Mean Corpuscular Hemoglobin Concent 33 g/dL (31-37) Red Cell Distribution Width 17.6 % (11.5-14.5) Platelet Count 257 x10^3/uL (140-400) Neutrophils (%) (Auto) 70 % (31-73) Lymphocytes (%) (Auto) 20 % (24-48) Monocytes (%) (Auto) 8 % (0-9) Eosinophils (%) (Auto) 2 % (0-3) Basophils (%) (Auto) 1 % (0-3) Neutrophils # (Auto) 5.4 x10^3uL (1.8-7.7) Lymphocytes # (Auto) 1.5 x10^3/uL (1.0-4.8) Monocytes # (Auto) 0.6 x10^3/uL (0.0-1.1) Eosinophils # (Auto) 0.1 x10^3/uL (0.0-0.7) Basophils # (Auto) 0.1 x10^3/uL (0.0-0.2) Sodium Level 137 mmol/L (136-145) Potassium Level 3.9 mmol/L (3.5-5.1) Chloride Level 104 mmol/L (98-107) Carbon Dioxide Level 24 mmol/L (21-32) Anion Gap 9 (6-14) Blood Urea Nitrogen 7 mg/dL (7-20) Creatinine 0.6 mg/dL (0.6-1.0) Estimated GFR (Cockcroft-Gault) 136.9 BUN/Creatinine Ratio 12 (6-20) Glucose Level 69 mg/dL (70-99) Calcium Level 8.2 mg/dL (8.5-10.1) Total Bilirubin 0.6 mg/dL (0.2-1.0) Aspartate Amino Transf (AST/SGOT) 15 U/L (15-37) Alanine Aminotransferase (ALT/SGPT) 17 U/L (14-59) Alkaline Phosphatase 56 U/L (46-116) Total Protein 6.7 g/dL (6.4-8.2) Albumin 2.9 g/dL (3.4-5.0) Albumin/Globulin Ratio 0.8 (1.0-1.7) Hepatitis B Surface Antigen Nonreactive (Nonreactive) HIV (1&2) Antibody Screen Nonreactive (Nonreactive) Glucose (Fingerstick) 57 mg/dL (70-99) Test 03/22/18 15:20 03/22/18 15:43 03/22/18 17:06 03/22/18 17:45 White Blood Count 8.1 x10^3/uL (4.0-11.0) Red Blood Count 2.99 x10^6/uL (3.50-5.40) Hemoglobin 7.8 g/dL (12.0-15.5) Hematocrit 23.6 % (36.0-47.0) Mean Corpuscular Volume 79 fL (79-100) Mean Corpuscular Hemoglobin 26 pg (25-35) Mean Corpuscular Hemoglobin Concent 33 g/dL (31-37) Red Cell Distribution Width 17.8 % (11.5-14.5) Platelet Count 239 x10^3/uL (140-400) Neutrophils (%) (Auto) 66 % (31-73) Lymphocytes (%) (Auto) 22 % (24-48) Monocytes (%) (Auto) 9 % (0-9) Eosinophils (%) (Auto) 2 % (0-3) Basophils (%) (Auto) 1 % (0-3) Neutrophils # (Auto) 5.3 x10^3uL (1.8-7.7) Lymphocytes # (Auto) 1.8 x10^3/uL (1.0-4.8) Monocytes # (Auto) 0.7 x10^3/uL (0.0-1.1) Eosinophils # (Auto) 0.2 x10^3/uL (0.0-0.7) Basophils # (Auto) 0.1 x10^3/uL (0.0-0.2) Prothrombin Time 14.0 SEC (11.7-14.0) Prothromb Time International Ratio 1.1 (0.8-1.1) Activated Partial Thromboplast Time 28 SEC (24-38) Sodium Level 137 mmol/L (136-145) Potassium Level 3.6 mmol/L (3.5-5.1) Chloride Level 104 mmol/L (98-107) Carbon Dioxide Level 24 mmol/L (21-32) Anion Gap 9 (6-14) Blood Urea Nitrogen 6 mg/dL (7-20) Creatinine 0.6 mg/dL (0.6-1.0) Estimated GFR (Cockcroft-Gault) 136.9 BUN/Creatinine Ratio 10 (6-20) Glucose Level 64 mg/dL (70-99) Calcium Level 8.1 mg/dL (8.5-10.1) Magnesium Level 1.7 mg/dL (1.8-2.4) Total Bilirubin 0.6 mg/dL (0.2-1.0) Aspartate Amino Transf (AST/SGOT) 16 U/L (15-37) Alanine Aminotransferase (ALT/SGPT) 16 U/L (14-59) Alkaline Phosphatase 52 U/L (46-116) Total Protein 6.4 g/dL (6.4-8.2) Albumin 2.7 g/dL (3.4-5.0) Albumin/Globulin Ratio 0.7 (1.0-1.7) Glucose (Fingerstick) 77 mg/dL (70-99) 74 mg/dL (70-99) 94 mg/dL (70-99) Test 03/22/18 19:30 03/22/18 19:55 03/22/18 21:30 03/22/18 23:51 Glucose (Fingerstick) 122 mg/dL (70-99) 126 mg/dL (70-99) 79 mg/dL (70-99) O2 Saturation 99 % (92-99) Arterial Blood pH 7.45 (7.35-7.45) Arterial Blood pCO2 at Patient Temp 35 mmHg (35-46) Arterial Blood pO2 at Patient Temp 149 mmHg (85-108) Arterial Blood HCO3 24 mmol/L (21-28) Arterial Blood Base Excess 0 mmol/L (-3-3) FiO2 36 Test 03/23/18 01:30 03/23/18 03:28 03/23/18 06:32 03/23/18 09:40 Glucose (Fingerstick) 89 mg/dL (70-99) 119 mg/dL (70-99) 76 mg/dL (70-99) Erythrocyte Sedimentation Rate 21 (0-25) Sodium Level 136 mmol/L (136-145) Potassium Level 4.0 mmol/L (3.5-5.1) Chloride Level 103 mmol/L (98-107) Carbon Dioxide Level 27 mmol/L (21-32) Anion Gap 6 (6-14) Blood Urea Nitrogen 4 mg/dL (7-20) Creatinine 0.7 mg/dL (0.6-1.0) Estimated GFR (Cockcroft-Gault) 114.6 BUN/Creatinine Ratio 6 (6-20) Glucose Level 75 mg/dL (70-99) Calcium Level 8.5 mg/dL (8.5-10.1) Total Bilirubin 0.6 mg/dL (0.2-1.0) Aspartate Amino Transf (AST/SGOT) 14 U/L (15-37) Alanine Aminotransferase (ALT/SGPT) 17 U/L (14-59) Alkaline Phosphatase 62 U/L (46-116) Total Protein 7.4 g/dL (6.4-8.2) Albumin 3.0 g/dL (3.4-5.0) Albumin/Globulin Ratio 0.7 (1.0-1.7) Thyroid Stimulating Hormone (TSH) 0.714 uIU/mL (0.358-3.74) Free Triiodothyronine (T3) pg/mL 2.11 pg/mL (2.18-3.98) Laboratory Tests Test 03/22/18 11:25 03/22/18 12:19 03/22/18 13:20 03/22/18 15:18 Urine Collection Type Unknown Urine Color Yellow Urine Clarity Clear Urine pH 7.5 Urine Specific [place] 1.015 Urine Protein Negative mg/dL (NEG-TRACE) Urine Glucose (UA) Negative mg/dL (NEG) Urine Ketones (Stick) 40 mg/dL (NEG) Urine Blood Negative (NEG) Urine Nitrite Negative (NEG) Urine Bilirubin Negative (NEG) Urine Urobilinogen Dipstick 1.0 mg/dL (0.2 mg/dL) Urine Leukocyte Esterase Negative (NEG) Urine RBC 0 /HPF (0-2) Urine WBC 1-4 /HPF (0-4) Urine Squamous Epithelial Cells Few /LPF Urine Transitional Epithelial Cells Few /LPF Urine Amorphous Sediment Present /HPF Urine Bacteria 0 /HPF (0-FEW) Urine Opiates Screen Neg (NEG) Urine Methadone Screen Neg (NEG) Urine Barbiturates Neg (NEG) Urine Phencyclidine Screen Neg (NEG) Urine Amphetamine/Methamphetamine Neg (NEG) Urine Benzodiazepines Screen Neg (NEG) Urine Cocaine Screen Neg (NEG) Urine Cannabinoids Screen Pos (NEG) Urine Ethyl Alcohol Neg (NEG) White Blood Count 7.8 x10^3/uL (4.0-11.0) Red Blood Count 3.10 x10^6/uL (3.50-5.40) Hemoglobin 8.0 g/dL (12.0-15.5) Hematocrit 24.6 % (36.0-47.0) Mean Corpuscular Volume 79 fL (79-100) Mean Corpuscular Hemoglobin 26 pg (25-35) Mean Corpuscular Hemoglobin Concent 33 g/dL (31-37) Red Cell Distribution Width 17.6 % (11.5-14.5) Platelet Count 257 x10^3/uL (140-400) Neutrophils (%) (Auto) 70 % (31-73) Lymphocytes (%) (Auto) 20 % (24-48) Monocytes (%) (Auto) 8 % (0-9) Eosinophils (%) (Auto) 2 % (0-3) Basophils (%) (Auto) 1 % (0-3) Neutrophils # (Auto) 5.4 x10^3uL (1.8-7.7) Lymphocytes # (Auto) 1.5 x10^3/uL (1.0-4.8) Monocytes # (Auto) 0.6 x10^3/uL (0.0-1.1) Eosinophils # (Auto) 0.1 x10^3/uL (0.0-0.7) Basophils # (Auto) 0.1 x10^3/uL (0.0-0.2) Sodium Level 137 mmol/L (136-145) Potassium Level 3.9 mmol/L (3.5-5.1) Chloride Level 104 mmol/L (98-107) Carbon Dioxide Level 24 mmol/L (21-32) Anion Gap 9 (6-14) Blood Urea Nitrogen 7 mg/dL (7-20) Creatinine 0.6 mg/dL (0.6-1.0) Estimated GFR (Cockcroft-Gault) 136.9 BUN/Creatinine Ratio 12 (6-20) Glucose Level 69 mg/dL (70-99) Calcium Level 8.2 mg/dL (8.5-10.1) Total Bilirubin 0.6 mg/dL (0.2-1.0) Aspartate Amino Transf (AST/SGOT) 15 U/L (15-37) Alanine Aminotransferase (ALT/SGPT) 17 U/L (14-59) Alkaline Phosphatase 56 U/L (46-116) Total Protein 6.7 g/dL (6.4-8.2) Albumin 2.9 g/dL (3.4-5.0) Albumin/Globulin Ratio 0.8 (1.0-1.7) Hepatitis B Surface Antigen Nonreactive (Nonreactive) HIV (1&2) Antibody Screen Nonreactive (Nonreactive) Glucose (Fingerstick) 57 mg/dL (70-99) Test 03/22/18 15:20 03/22/18 15:43 03/22/18 17:06 03/22/18 17:45 White Blood Count 8.1 x10^3/uL (4.0-11.0) Red Blood Count 2.99 x10^6/uL (3.50-5.40) Hemoglobin 7.8 g/dL (12.0-15.5) Hematocrit 23.6 % (36.0-47.0) Mean Corpuscular Volume 79 fL (79-100) Mean Corpuscular Hemoglobin 26 pg (25-35) Mean Corpuscular Hemoglobin Concent 33 g/dL (31-37) Red Cell Distribution Width 17.8 % (11.5-14.5) Platelet Count 239 x10^3/uL (140-400) Neutrophils (%) (Auto) 66 % (31-73) Lymphocytes (%) (Auto) 22 % (24-48) Monocytes (%) (Auto) 9 % (0-9) Eosinophils (%) (Auto) 2 % (0-3) Basophils (%) (Auto) 1 % (0-3) Neutrophils # (Auto) 5.3 x10^3uL (1.8-7.7) Lymphocytes # (Auto) 1.8 x10^3/uL (1.0-4.8) Monocytes # (Auto) 0.7 x10^3/uL (0.0-1.1) Eosinophils # (Auto) 0.2 x10^3/uL (0.0-0.7) Basophils # (Auto) 0.1 x10^3/uL (0.0-0.2) Prothrombin Time 14.0 SEC (11.7-14.0) Prothromb Time International Ratio 1.1 (0.8-1.1) Activated Partial Thromboplast Time 28 SEC (24-38) Sodium Level 137 mmol/L (136-145) Potassium Level 3.6 mmol/L (3.5-5.1) Chloride Level 104 mmol/L (98-107) Carbon Dioxide Level 24 mmol/L (21-32) Anion Gap 9 (6-14) Blood Urea Nitrogen 6 mg/dL (7-20) Creatinine 0.6 mg/dL (0.6-1.0) Estimated GFR (Cockcroft-Gault) 136.9 BUN/Creatinine Ratio 10 (6-20) Glucose Level 64 mg/dL (70-99) Calcium Level 8.1 mg/dL (8.5-10.1) Magnesium Level 1.7 mg/dL (1.8-2.4) Total Bilirubin 0.6 mg/dL (0.2-1.0) Aspartate Amino Transf (AST/SGOT) 16 U/L (15-37) Alanine Aminotransferase (ALT/SGPT) 16 U/L (14-59) Alkaline Phosphatase 52 U/L (46-116) Total Protein 6.4 g/dL (6.4-8.2) Albumin 2.7 g/dL (3.4-5.0) Albumin/Globulin Ratio 0.7 (1.0-1.7) Glucose (Fingerstick) 77 mg/dL (70-99) 74 mg/dL (70-99) 94 mg/dL (70-99) Test 03/22/18 19:30 03/22/18 19:55 03/22/18 21:30 03/22/18 23:51 Glucose (Fingerstick) 122 mg/dL (70-99) 126 mg/dL (70-99) 79 mg/dL (70-99) O2 Saturation 99 % (92-99) Arterial Blood pH 7.45 (7.35-7.45) Arterial Blood pCO2 at Patient Temp 35 mmHg (35-46) Arterial Blood pO2 at Patient Temp 149 mmHg (85-108) Arterial Blood HCO3 24 mmol/L (21-28) Arterial Blood Base Excess 0 mmol/L (-3-3) FiO2 36 Test 03/23/18 01:30 03/23/18 03:28 03/23/18 06:32 03/23/18 09:40 Glucose (Fingerstick) 89 mg/dL (70-99) 119 mg/dL (70-99) 76 mg/dL (70-99) Erythrocyte Sedimentation Rate 21 (0-25) Sodium Level 136 mmol/L (136-145) Potassium Level 4.0 mmol/L (3.5-5.1) Chloride Level 103 mmol/L (98-107) Carbon Dioxide Level 27 mmol/L (21-32) Anion Gap 6 (6-14) Blood Urea Nitrogen 4 mg/dL (7-20) Creatinine 0.7 mg/dL (0.6-1.0) Estimated GFR (Cockcroft-Gault) 114.6 BUN/Creatinine Ratio 6 (6-20) Glucose Level 75 mg/dL (70-99) Calcium Level 8.5 mg/dL (8.5-10.1) Total Bilirubin 0.6 mg/dL (0.2-1.0) Aspartate Amino Transf (AST/SGOT) 14 U/L (15-37) Alanine Aminotransferase (ALT/SGPT) 17 U/L (14-59) Alkaline Phosphatase 62 U/L (46-116) Total Protein 7.4 g/dL (6.4-8.2) Albumin 3.0 g/dL (3.4-5.0) Albumin/Globulin Ratio 0.7 (1.0-1.7) Thyroid Stimulating Hormone (TSH) 0.714 uIU/mL (0.358-3.74) Free Triiodothyronine (T3) pg/mL 2.11 pg/mL (2.18-3.98) Medications Current Medications Ringer's Solution 1,000 ml @ 125 mls/hr Q8H IV Last administered on 03/22/18at 12:51; Start 03/22/18 at 12:00 Ondansetron HCl (Zofran) 8 mg PRN Q6HRS PRN IV NAUSEA 1ST CHOICE Last administered on 03/22/18at 12:52; Start 03/22/18 at 11:30 Furosemide (Lasix) 40 mg Q12HR IVP ; Start 03/22/18 at 21:00; Stop 03/22/18 at 21:00; Status DC Dobutamine HCl/ Dextrose 250 ml @ 11.363 mls/ hr CONT PRN IV SEE I/O RECORD Last administered on 03/22/18at 15:16; Start 03/22/18 at 15:00 Dextrose (Dextrose 50%-Water Syringe) 25 gm STK-MED ONCE IV ; Start 03/22/18 at 15:19; Stop 03/22/18 at 15:20; Status DC Furosemide (Lasix) 40 mg Q12HR IVP Last administered on 03/23/18 09:42; Start 03/22/18 at 16:30 Magnesium Sulfate 50 ml @ 25 mls/hr 1X ONCE IV Last administered on 03/22/18at 19:47; Start 03/22/18 at 16:15; Stop 03/22/18 at 18:14; Status DC Acetaminophen (Tylenol) 650 mg PRN Q6HRS PRN PO MILD PAIN / TEMP Last administered on 03/23/18at 09:43; Start 03/22/18 at 19:45 Active Scripts Active Tablet (Pnv Cmb#95/Ferrous Fumarate/Fa) 1 Each Tablet 1 Tab PO DAILY Cephalexin 500 Mg Tablet 1 Tab PO BID Ibuprofen 600 Mg Tablet 600 Mg PO PRN Q6HRS PRN take with food or milk Lisinopril 5 Mg Tablet 5 Mg PO DAILY Furosemide 40 Mg Tablet 20 Mg PO DAILY Carvedilol 6.25 Mg Tablet 3.125 Mg PO BIDWMEALS Aspirin Ec (Aspirin) 81 Mg Tablet. 81 Mg PO [id number] Exam Abd: soft, non tender Assessment 22 wks IUP Mild Cardiomyopathy EF at 30% Plan of Care: Continue current Tx, Mgmt (When stable will d/c home. is high risk and will need [employer] team.) KORTNEY YA Jr, MD Mar 23, 2018 10:30
--- NOTE | 2018-03-23 14:42 | PDOC ---
PROGRESS NOTES Subjective Subjective Patient feels better today. Less dyspnea. Complains of some leg cramps. Good urine output. Objective Objective Vital Signs Date Time Temp Pulse Resp B/P (MAP) Pulse Ox O2 Delivery O2 Flow Rate FiO2 03/23/18 13:00 74 15 126/68 (87) 100 Nasal Cannula 4.0 03/23/18 12:00 98.2 98.2 Intake and Output 03/23/18 07:00 Intake Total 600 ml Output Total 5135 ml Balance -4535 ml Intake Oral 550 ml IV Total 50 ml Output Urine Total 5135 ml Physical Exam Physical Exam Neck 2 cm JVD Lungs moving air better, no wheezing, less rales. Heart no changes. Extremities less edema. Assessment Assessment Patient's pulmonary edema appears to be improving clinically. I would like to continue with another 24 hours of monitoring in the ICU as well as IV Lasix. Need to keep track of electrolytes and magnesium level. Comment Review of Relevant I have reviewed the following items cholo (where applicable) has been applied. Labs Laboratory Tests Test 03/22/18 11:25 03/22/18 12:19 03/22/18 13:20 03/22/18 15:18 Urine Collection Type Unknown Urine Color Yellow Urine Clarity Clear Urine pH 7.5 Urine Specific [place] 1.015 Urine Protein Negative mg/dL (NEG-TRACE) Urine Glucose (UA) Negative mg/dL (NEG) Urine Ketones (Stick) 40 mg/dL (NEG) Urine Blood Negative (NEG) Urine Nitrite Negative (NEG) Urine Bilirubin Negative (NEG) Urine Urobilinogen Dipstick 1.0 mg/dL (0.2 mg/dL) Urine Leukocyte Esterase Negative (NEG) Urine RBC 0 /HPF (0-2) Urine WBC 1-4 /HPF (0-4) Urine Squamous Epithelial Cells Few /LPF Urine Transitional Epithelial Cells Few /LPF Urine Amorphous Sediment Present /HPF Urine Bacteria 0 /HPF (0-FEW) Urine Opiates Screen Neg (NEG) Urine Methadone Screen Neg (NEG) Urine Barbiturates Neg (NEG) Urine Phencyclidine Screen Neg (NEG) Urine Amphetamine/Methamphetamine Neg (NEG) Urine Benzodiazepines Screen Neg (NEG) Urine Cocaine Screen Neg (NEG) Urine Cannabinoids Screen Pos (NEG) Urine Ethyl Alcohol Neg (NEG) White Blood Count 7.8 x10^3/uL (4.0-11.0) Red Blood Count 3.10 x10^6/uL (3.50-5.40) Hemoglobin 8.0 g/dL (12.0-15.5) Hematocrit 24.6 % (36.0-47.0) Mean Corpuscular Volume 79 fL (79-100) Mean Corpuscular Hemoglobin 26 pg (25-35) Mean Corpuscular Hemoglobin Concent 33 g/dL (31-37) Red Cell Distribution Width 17.6 % (11.5-14.5) Platelet Count 257 x10^3/uL (140-400) Neutrophils (%) (Auto) 70 % (31-73) Lymphocytes (%) (Auto) 20 % (24-48) Monocytes (%) (Auto) 8 % (0-9) Eosinophils (%) (Auto) 2 % (0-3) Basophils (%) (Auto) 1 % (0-3) Neutrophils # (Auto) 5.4 x10^3uL (1.8-7.7) Lymphocytes # (Auto) 1.5 x10^3/uL (1.0-4.8) Monocytes # (Auto) 0.6 x10^3/uL (0.0-1.1) Eosinophils # (Auto) 0.1 x10^3/uL (0.0-0.7) Basophils # (Auto) 0.1 x10^3/uL (0.0-0.2) Sodium Level 137 mmol/L (136-145) Potassium Level 3.9 mmol/L (3.5-5.1) Chloride Level 104 mmol/L (98-107) Carbon Dioxide Level 24 mmol/L (21-32) Anion Gap 9 (6-14) Blood Urea Nitrogen 7 mg/dL (7-20) Creatinine 0.6 mg/dL (0.6-1.0) Estimated GFR (Cockcroft-Gault) 136.9 BUN/Creatinine Ratio 12 (6-20) Glucose Level 69 mg/dL (70-99) Calcium Level 8.2 mg/dL (8.5-10.1) Total Bilirubin 0.6 mg/dL (0.2-1.0) Aspartate Amino Transf (AST/SGOT) 15 U/L (15-37) Alanine Aminotransferase (ALT/SGPT) 17 U/L (14-59) Alkaline Phosphatase 56 U/L (46-116) Total Protein 6.7 g/dL (6.4-8.2) Albumin 2.9 g/dL (3.4-5.0) Albumin/Globulin Ratio 0.8 (1.0-1.7) Hepatitis B Surface Antigen Nonreactive (Nonreactive) HIV (1&2) Antibody Screen Nonreactive (Nonreactive) Rubella IgG Antibody 1.15 index (Immune >0.99) Glucose (Fingerstick) 57 mg/dL (70-99) Test 03/22/18 15:20 03/22/18 15:43 03/22/18 17:06 03/22/18 17:45 White Blood Count 8.1 x10^3/uL (4.0-11.0) Red Blood Count 2.99 x10^6/uL (3.50-5.40) Hemoglobin 7.8 g/dL (12.0-15.5) Hematocrit 23.6 % (36.0-47.0) Mean Corpuscular Volume 79 fL (79-100) Mean Corpuscular Hemoglobin 26 pg (25-35) Mean Corpuscular Hemoglobin Concent 33 g/dL (31-37) Red Cell Distribution Width 17.8 % (11.5-14.5) Platelet Count 239 x10^3/uL (140-400) Neutrophils (%) (Auto) 66 % (31-73) Lymphocytes (%) (Auto) 22 % (24-48) Monocytes (%) (Auto) 9 % (0-9) Eosinophils (%) (Auto) 2 % (0-3) Basophils (%) (Auto) 1 % (0-3) Neutrophils # (Auto) 5.3 x10^3uL (1.8-7.7) Lymphocytes # (Auto) 1.8 x10^3/uL (1.0-4.8) Monocytes # (Auto) 0.7 x10^3/uL (0.0-1.1) Eosinophils # (Auto) 0.2 x10^3/uL (0.0-0.7) Basophils # (Auto) 0.1 x10^3/uL (0.0-0.2) Prothrombin Time 14.0 SEC (11.7-14.0) Prothromb Time International Ratio 1.1 (0.8-1.1) Activated Partial Thromboplast Time 28 SEC (24-38) Sodium Level 137 mmol/L (136-145) Potassium Level 3.6 mmol/L (3.5-5.1) Chloride Level 104 mmol/L (98-107) Carbon Dioxide Level 24 mmol/L (21-32) Anion Gap 9 (6-14) Blood Urea Nitrogen 6 mg/dL (7-20) Creatinine 0.6 mg/dL (0.6-1.0) Estimated GFR (Cockcroft-Gault) 136.9 BUN/Creatinine Ratio 10 (6-20) Glucose Level 64 mg/dL (70-99) Calcium Level 8.1 mg/dL (8.5-10.1) Magnesium Level 1.7 mg/dL (1.8-2.4) Total Bilirubin 0.6 mg/dL (0.2-1.0) Aspartate Amino Transf (AST/SGOT) 16 U/L (15-37) Alanine Aminotransferase (ALT/SGPT) 16 U/L (14-59) Alkaline Phosphatase 52 U/L (46-116) Total Protein 6.4 g/dL (6.4-8.2) Albumin 2.7 g/dL (3.4-5.0) Albumin/Globulin Ratio 0.7 (1.0-1.7) Glucose (Fingerstick) 77 mg/dL (70-99) 74 mg/dL (70-99) 94 mg/dL (70-99) Test 03/22/18 19:30 03/22/18 19:55 03/22/18 21:30 03/22/18 23:51 Glucose (Fingerstick) 122 mg/dL (70-99) 126 mg/dL (70-99) 79 mg/dL (70-99) O2 Saturation 99 % (92-99) Arterial Blood pH 7.45 (7.35-7.45) Arterial Blood pCO2 at Patient Temp 35 mmHg (35-46) Arterial Blood pO2 at Patient Temp 149 mmHg (85-108) Arterial Blood HCO3 24 mmol/L (21-28) Arterial Blood Base Excess 0 mmol/L (-3-3) FiO2 36 Test 03/23/18 01:30 03/23/18 03:28 03/23/18 06:32 03/23/18 09:40 Glucose (Fingerstick) 89 mg/dL (70-99) 119 mg/dL (70-99) 76 mg/dL (70-99) Erythrocyte Sedimentation Rate 21 (0-25) Sodium Level 136 mmol/L (136-145) Potassium Level 4.0 mmol/L (3.5-5.1) Chloride Level 103 mmol/L (98-107) Carbon Dioxide Level 27 mmol/L (21-32) Anion Gap 6 (6-14) Blood Urea Nitrogen 4 mg/dL (7-20) Creatinine 0.7 mg/dL (0.6-1.0) Estimated GFR (Cockcroft-Gault) 114.6 BUN/Creatinine Ratio 6 (6-20) Glucose Level 75 mg/dL (70-99) Calcium Level 8.5 mg/dL (8.5-10.1) Total Bilirubin 0.6 mg/dL (0.2-1.0) Aspartate Amino Transf (AST/SGOT) 14 U/L (15-37) Alanine Aminotransferase (ALT/SGPT) 17 U/L (14-59) Alkaline Phosphatase 62 U/L (46-116) Total Protein 7.4 g/dL (6.4-8.2) Albumin 3.0 g/dL (3.4-5.0) Albumin/Globulin Ratio 0.7 (1.0-1.7) Thyroid Stimulating Hormone (TSH) 0.714 uIU/mL (0.358-3.74) Free Triiodothyronine (T3) pg/mL 2.11 pg/mL (2.18-3.98) Cortisol AM Sample 22.1 ug/dL (4.3-22.4) Test 03/23/18 11:54 Glucose (Fingerstick) 105 mg/dL (70-99) Laboratory Tests Test 03/22/18 15:18 03/22/18 15:20 03/22/18 15:43 03/22/18 17:06 Glucose (Fingerstick) 57 mg/dL (70-99) 77 mg/dL (70-99) 74 mg/dL (70-99) White Blood Count 8.1 x10^3/uL (4.0-11.0) Red Blood Count 2.99 x10^6/uL (3.50-5.40) Hemoglobin 7.8 g/dL (12.0-15.5) Hematocrit 23.6 % (36.0-47.0) Mean Corpuscular Volume 79 fL (79-100) Mean Corpuscular Hemoglobin 26 pg (25-35) Mean Corpuscular Hemoglobin Concent 33 g/dL (31-37) Red Cell Distribution Width 17.8 % (11.5-14.5) Platelet Count 239 x10^3/uL (140-400) Neutrophils (%) (Auto) 66 % (31-73) Lymphocytes (%) (Auto) 22 % (24-48) Monocytes (%) (Auto) 9 % (0-9) Eosinophils (%) (Auto) 2 % (0-3) Basophils (%) (Auto) 1 % (0-3) Neutrophils # (Auto) 5.3 x10^3uL (1.8-7.7) Lymphocytes # (Auto) 1.8 x10^3/uL (1.0-4.8) Monocytes # (Auto) 0.7 x10^3/uL (0.0-1.1) Eosinophils # (Auto) 0.2 x10^3/uL (0.0-0.7) Basophils # (Auto) 0.1 x10^3/uL (0.0-0.2) Prothrombin Time 14.0 SEC (11.7-14.0) Prothromb Time International Ratio 1.1 (0.8-1.1) Activated Partial Thromboplast Time 28 SEC (24-38) Sodium Level 137 mmol/L (136-145) Potassium Level 3.6 mmol/L (3.5-5.1) Chloride Level 104 mmol/L (98-107) Carbon Dioxide Level 24 mmol/L (21-32) Anion Gap 9 (6-14) Blood Urea Nitrogen 6 mg/dL (7-20) Creatinine 0.6 mg/dL (0.6-1.0) Estimated GFR (Cockcroft-Gault) 136.9 BUN/Creatinine Ratio 10 (6-20) Glucose Level 64 mg/dL (70-99) Calcium Level 8.1 mg/dL (8.5-10.1) Magnesium Level 1.7 mg/dL (1.8-2.4) Total Bilirubin 0.6 mg/dL (0.2-1.0) Aspartate Amino Transf (AST/SGOT) 16 U/L (15-37) Alanine Aminotransferase (ALT/SGPT) 16 U/L (14-59) Alkaline Phosphatase 52 U/L (46-116) Total Protein 6.4 g/dL (6.4-8.2) Albumin 2.7 g/dL (3.4-5.0) Albumin/Globulin Ratio 0.7 (1.0-1.7) Test 03/22/18 17:45 03/22/18 19:30 03/22/18 19:55 03/22/18 21:30 Glucose (Fingerstick) 94 mg/dL (70-99) 122 mg/dL (70-99) 126 mg/dL (70-99) O2 Saturation 99 % (92-99) Arterial Blood pH 7.45 (7.35-7.45) Arterial Blood pCO2 at Patient Temp 35 mmHg (35-46) Arterial Blood pO2 at Patient Temp 149 mmHg (85-108) Arterial Blood HCO3 24 mmol/L (21-28) Arterial Blood Base Excess 0 mmol/L (-3-3) FiO2 36 Test 03/22/18 23:51 03/23/18 01:30 03/23/18 03:28 03/23/18 06:32 Glucose (Fingerstick) 79 mg/dL (70-99) 89 mg/dL (70-99) 119 mg/dL (70-99) Erythrocyte Sedimentation Rate 21 (0-25) Sodium Level 136 mmol/L (136-145) Potassium Level 4.0 mmol/L (3.5-5.1) Chloride Level 103 mmol/L (98-107) Carbon Dioxide Level 27 mmol/L (21-32) Anion Gap 6 (6-14) Blood Urea Nitrogen 4 mg/dL (7-20) Creatinine 0.7 mg/dL (0.6-1.0) Estimated GFR (Cockcroft-Gault) 114.6 BUN/Creatinine Ratio 6 (6-20) Glucose Level 75 mg/dL (70-99) Calcium Level 8.5 mg/dL (8.5-10.1) Total Bilirubin 0.6 mg/dL (0.2-1.0) Aspartate Amino Transf (AST/SGOT) 14 U/L (15-37) Alanine Aminotransferase (ALT/SGPT) 17 U/L (14-59) Alkaline Phosphatase 62 U/L (46-116) Total Protein 7.4 g/dL (6.4-8.2) Albumin 3.0 g/dL (3.4-5.0) Albumin/Globulin Ratio 0.7 (1.0-1.7) Thyroid Stimulating Hormone (TSH) 0.714 uIU/mL (0.358-3.74) Free Triiodothyronine (T3) pg/mL 2.11 pg/mL (2.18-3.98) Cortisol AM Sample 22.1 ug/dL (4.3-22.4) Test 03/23/18 09:40 03/23/18 11:54 Glucose (Fingerstick) 76 mg/dL (70-99) 105 mg/dL (70-99) Medications Current Medications Ringer's Solution 1,000 ml @ 125 mls/hr Q8H IV Last administered on 03/22/18at 12:51; Start 03/22/18 at 12:00 Ondansetron HCl (Zofran) 8 mg PRN Q6HRS PRN IV NAUSEA 1ST CHOICE Last administered on 03/22/18at 12:52; Start 03/22/18 at 11:30 Furosemide (Lasix) 40 mg Q12HR IVP ; Start 03/22/18 at 21:00; Stop 03/22/18 at 21:00; Status DC Dobutamine HCl/ Dextrose 250 ml @ 11.363 mls/ hr CONT PRN IV SEE I/O RECORD Last administered on 03/22/18at 15:16; Start 03/22/18 at 15:00 Dextrose (Dextrose 50%-Water Syringe) 25 gm STK-MED ONCE IV ; Start 03/22/18 at 15:19; Stop 03/22/18 at 15:20; Status DC Furosemide (Lasix) 40 mg Q12HR IVP Last administered on 03/23/18at 09:42; Start 03/22/18 at 16:30 Magnesium Sulfate 50 ml @ 25 mls/hr 1X ONCE IV Last administered on 03/22/18at 19:47; Start 03/22/18 at 16:15; Stop 03/22/18 at 18:14; Status DC Acetaminophen (Tylenol) 650 mg PRN Q6HRS PRN PO MILD PAIN / TEMP Last administered on 03/23/18at 09:43; Start 03/22/18 at 19:45 Sodium Chloride 1,000 ml @ 40 mls/hr Q24H IV ; Start 03/23/18 at 14:00 Active Scripts Active Tablet (Pnv Cmb#95/Ferrous Fumarate/Fa) 1 Each Tablet 1 Tab PO DAILY Cephalexin 500 Mg Tablet 1 Tab PO BID Ibuprofen 600 Mg Tablet 600 Mg PO PRN Q6HRS PRN take with food or milk Lisinopril 5 Mg Tablet 5 Mg PO DAILY Furosemide 40 Mg Tablet 20 Mg PO DAILY Carvedilol 6.25 Mg Tablet 3.125 Mg PO BIDWMEALS Aspirin Ec (Aspirin) 81 Mg Tablet.dr 81 Mg PO DAILYWBKFT Vitals/I & O Vital Sign - Last 24 Hours 03/22/18 03/22/18 03/22/18 03/22/18 15:00 15:30 16:00 16:30 Pulse 56 70 66 72 Resp 16 16 16 16 B/P (MAP) 137/80 (99) 140/72 (94) 145/77 (99) 136/74 (94) Pulse Ox 99 100 100 100 O2 Delivery Nasal Cannula Nasal Cannula Nasal Cannula Nasal Cannula O2 Flow Rate 4.0 4.0 4.0 4.0 03/22/18 03/22/18 03/22/18 03/22/18 17:00 17:00 18:00 19:00 Pulse 70 72 72 Resp 18 20 14 B/P (MAP) 138/79 (98) 136/83 (100) 117/69 (85) Pulse Ox 100 99 100 O2 Delivery Nasal Cannula Nasal Cannula Nasal Cannula Nasal Cannula O2 Flow Rate 4.0 4.0 4.0 4.0 03/22/18 03/22/18 03/22/18 03/22/18 20:00 20:00 21:00 22:00 Temp 98.6 98.6 Pulse 64 63 70 Resp 19 14 10 B/P (MAP) 113/63 (80) 113/64 (80) 106/58 (74) Pulse Ox 100 100 100 O2 Delivery Nasal Cannula Nasal Cannula Nasal Cannula Nasal Cannula O2 Flow Rate 4.0 4.0 4.0 4.0 03/22/18 03/23/18 03/23/18 03/23/18 23:00 00:00 00:00 01:00 Temp 98.6 98.6 Pulse 70 65 64 Resp 14 18 16 B/P (MAP) 108/61 (77) 116/65 (82) 129/69 (89) Pulse Ox 100 100 100 O2 Delivery Nasal Cannula Nasal Cannula Nasal Cannula Nasal Cannula O2 Flow Rate 4.0 4.0 4.0 4.0 03/23/18 03/23/18 03/23/18 03/23/18 02:00 03:00 04:00 04:00 Temp 98.6 98.6 Pulse 64 66 74 Resp 17 11 20 B/P (MAP) 109/60 (76) 114/67 (83) 110/63 (79) Pulse Ox 100 100 100 O2 Delivery Nasal Cannula Nasal Cannula Nasal Cannula Nasal Cannula O2 Flow Rate 4.0 4.0 4.0 4.0 03/23/18 03/23/18 03/23/18 03/23/18 05:00 06:00 07:00 08:00 Temp 98.3 98.3 Pulse 73 75 64 71 Resp 14 13 13 12 B/P (MAP) 112/60 (77) 111/58 (75) 126/72 (90) 118/69 (85) Pulse Ox 100 100 100 100 O2 Delivery Nasal Cannula Nasal Cannula Nasal Cannula Nasal Cannula O2 Flow Rate 4.0 4.0 4.0 4.0 03/23/18 03/23/18 03/23/18 03/23/18 08:00 09:00 10:00 11:00 Pulse 68 72 72 Resp 12 18 15 B/P (MAP) 126/75 (92) 130/67 (88) 117/68 (84) Pulse Ox 99 100 100 O2 Delivery Nasal Cannula Nasal Cannula Nasal Cannula Nasal Cannula O2 Flow Rate 4.0 4.0 4.0 4.0 03/23/18 03/23/18 03/23/18 12:00 12:00 13:00 Temp 98.2 98.2 Pulse 76 74 Resp 17 15 B/P (MAP) 126/69 (88) 126/68 (87) Pulse Ox 100 100 O2 Delivery Nasal Cannula Nasal Cannula Nasal Cannula O2 Flow Rate 4.0 4.0 4.0 Intake and Output 03/22/18 03/22/18 03/23/18 15:00 23:00 07:00 Intake Total 350 ml 250 ml Output Total 3115 ml 2020 ml Balance -2765 ml -1770 ml QING TIRADO MD Mar 23, 2018 14:41
[2018-03-23 15:00] LABS: HEMATOCRIT 28.4 % (36.0-47.0); HEMOGLOBIN 9.2 g/dL (12.0-15.5); RED BLOOD COUNT 3.61 x10^6/uL (3.50-5.40); RED CELL DISTRIBUTION WIDTH 17.7 % (11.5-14.5); WHITE BLOOD COUNT 7.4 x10^3/uL (4.0-11.0)
[2018-03-23 15:01] LABS: ALBUMIN/GLOBULIN RATIO 0.7 (1.0-1.7); CALCIUM 8.6 mg/dL (8.5-10.1); CREATININE 0.6 mg/dL (0.6-1.0); GFR 136.9; MAGNESIUM 1.9 mg/dL (1.8-2.4); POTASSIUM 3.3 mmol/L (3.5-5.1); TOTAL BILIRUBIN 0.6 mg/dL (0.2-1.0); TOTAL PROTEIN 7.4 g/dL (6.4-8.2)
--- NOTE | 2018-03-23 15:23 | CARD ---
MR#: [id number] Date of Study: 03/22/2018 Ordering Physician: KORTNEY YA, Referring Physician: KORTNEY YA, Tech: Hanh Jauregui [facility] APPROVED REPORT EXAM: Two-dimensional and M-mode echocardiogram with Doppler and color Doppler. Other Information Quality : Good INDICATION Dyspnea Fatigue Cardiomyopathy Murmur 2D DIMENSIONS RVDd2.5 (2.9-3.5cm)Left Atrium(2D)4.2 (1.6-4.0cm) IVSd1.0 (0.7-1.1cm)Aortic Root(2D)3.3 (2.0-3.7cm) LVDd6.5 (3.9-5.9cm)PWd1.1 (0.7-1.1cm) LVDs4.9 (2.5-4.0cm)FS (%) 23.9 % SV99.7 mlLVEF(%)35.0 (>50%) Tricuspid Valve TR P. [id number] TR Peak [id number] LEFT VENTRICLE The Left Ventricle is mildly dilated. There is normal left ventricular wall thickness. The LV Ejectio n Fraction is 35%. There is global hypokinesis of the left ventricle. RIGHT VENTRICLE The right ventricle is normal size. The right ventricular systolic function is normal. ATRIA The left atrium is mildly dilated. The right atrium size is normal. The interatrial septum is intact with no evidence for an atrial septal defect or patent foramen ovale as noted on 2-D or Doppler imagi ng. AORTIC VALVE The aortic valve is normal in structure and function. Doppler and Color Flow revealed no significant aortic regurgitation. There is no significant aortic valvular stenosis. MITRAL VALVE The mitral valve is normal in structure There is no evidence of mitral valve prolapse. There is no mi tral valve stenosis. Doppler and Color-flow revealed moderate mitral regurgitation. TRICUSPID VALVE The tricuspid valve is normal in structure Doppler and Color Flow revealed mild tricuspid regurgitati on. The PA pressure was estimated at 36 mmHg. There is no tricuspid valve stenosis. PULMONIC VALVE The pulmonary valve is normal in structure Doppler and Color Flow revealed trace to mild pulmonic jolynn vular regurgitation. There is no pulmonic valvular stenosis. GREAT VESSELS The aortic root size appears to be normal The IVC is normal in size and collapses >50% with inspirati on. PERICARDIAL EFFUSION There is no evidence of significant pericardial effusion. Critical Notification Critical Value: No <Conclusion> The LV Ejection Fraction is 35%. The Left Ventricle is mildly dilated. The left atrium is mildly dilated. The right atrium size is normal. The aortic valve is normal in structure and function. Doppler and Color-flow revealed moderate mitral regurgitation. Doppler and Color Flow revealed mild tricuspid regurgitation. The PA pressure was estimated at 36 m mHg. Doppler and Color Flow revealed trace to mild pulmonic valvular regurgitation. There is no evidence of significant pericardial effusion. Signed by : Noah Calvert MD Electronically Approved : 03/23/2018 15:22:43
[2018-03-23] MEDS: IV 1/2 NORMAL SALINE 1,000 ML IV SCH (15:53)
[2018-03-23] MEDS: POTASSIUM CHLORIDE 10MEQ 100 ML IV SCH ×2 (15:54→17:00)
[2018-03-24] VITALS (20 sets, daily range): BP systolic 99–128; BP diastolic 54–72
[2018-03-24] MEDS: IV RINGERS,LACTATED 1000ML 1,000 ML IV SCH (04:00)
[2018-03-24] MEDS: ACETAMINOPHEN 325 MG TABLET. PO PRN ×3 (05:05→20:11)
[2018-03-24] MEDS: FUROSEMIDE 40 MG/4 ML VIAL. IVP SCH ×2 (08:54→22:32)
[2018-03-24 09:45] LABS: HEMATOCRIT 29.3 % (36.0-47.0); HEMOGLOBIN 9.5 g/dL (12.0-15.5); RED BLOOD COUNT 3.69 x10^6/uL (3.50-5.40); RED CELL DISTRIBUTION WIDTH 17.6 % (11.5-14.5)
[2018-03-24 10:00] LABS: CALCIUM 8.6 mg/dL (8.5-10.1); CREATININE 0.5 mg/dL (0.6-1.0); GFR 168.9; MAGNESIUM 1.6 mg/dL (1.8-2.4); POTASSIUM 3.4 mmol/L (3.5-5.1)
[2018-03-24] MEDS: POTASSIUM CHLORIDE 10MEQ 100 ML IV SCH ×2 (12:47→13:47)
[2018-03-24] MEDS ORDERED: MAGNESIUM SULFATE 2GM 50 ML IV ONE (13:00)
[2018-03-24] MEDS ORDERED: POTASSIUM CHLORIDE 20MEQ 50 ML IV ONE (13:00)
--- NOTE | 2018-03-24 13:41 | PDOC ---
PROGRESS NOTES Subjective Subjective Patient feels better today. Objective Objective Vital Signs Date Time Temp Pulse Resp B/P (MAP) Pulse Ox O2 Delivery O2 Flow Rate FiO2 03/24/18 13:00 78 18 115/66 (82) 100 Nasal Cannula 4.0 03/24/18 09:00 98.8 98.8 Intake and Output 03/24/18 07:00 Intake Total 1176 ml Output Total 3230 ml Balance -2054 ml Intake Oral 800 ml IV Total 376 ml Output Urine Total 3230 ml Physical Exam Physical Exam Moving air better, almost clear lungs. No changes in heart sounds. Assessment Assessment Patient is improving. May be transferred out of ICU. Possible discharge in a.m. if she is stable Comment Review of Relevant I have reviewed the following items cholo (where applicable) has been applied. Labs Laboratory Tests Test 03/22/18 15:13 03/22/18 15:18 03/22/18 15:20 03/22/18 15:43 Nasal Screen MRSA (PCR) Negative (Negative) Glucose (Fingerstick) 57 mg/dL (70-99) 77 mg/dL (70-99) White Blood Count 8.1 x10^3/uL (4.0-11.0) Red Blood Count 2.99 x10^6/uL (3.50-5.40) Hemoglobin 7.8 g/dL (12.0-15.5) Hematocrit 23.6 % (36.0-47.0) Mean Corpuscular Volume 79 fL (79-100) Mean Corpuscular Hemoglobin 26 pg (25-35) Mean Corpuscular Hemoglobin Concent 33 g/dL (31-37) Red Cell Distribution Width 17.8 % (11.5-14.5) Platelet Count 239 x10^3/uL (140-400) Neutrophils (%) (Auto) 66 % (31-73) Lymphocytes (%) (Auto) 22 % (24-48) Monocytes (%) (Auto) 9 % (0-9) Eosinophils (%) (Auto) 2 % (0-3) Basophils (%) (Auto) 1 % (0-3) Neutrophils # (Auto) 5.3 x10^3uL (1.8-7.7) Lymphocytes # (Auto) 1.8 x10^3/uL (1.0-4.8) Monocytes # (Auto) 0.7 x10^3/uL (0.0-1.1) Eosinophils # (Auto) 0.2 x10^3/uL (0.0-0.7) Basophils # (Auto) 0.1 x10^3/uL (0.0-0.2) Prothrombin Time 14.0 SEC (11.7-14.0) Prothromb Time International Ratio 1.1 (0.8-1.1) Activated Partial Thromboplast Time 28 SEC (24-38) Sodium Level 137 mmol/L (136-145) Potassium Level 3.6 mmol/L (3.5-5.1) Chloride Level 104 mmol/L (98-107) Carbon Dioxide Level 24 mmol/L (21-32) Anion Gap 9 (6-14) Blood Urea Nitrogen 6 mg/dL (7-20) Creatinine 0.6 mg/dL (0.6-1.0) Estimated GFR (Cockcroft-Gault) 136.9 BUN/Creatinine Ratio 10 (6-20) Glucose Level 64 mg/dL (70-99) Calcium Level 8.1 mg/dL (8.5-10.1) Magnesium Level 1.7 mg/dL (1.8-2.4) Total Bilirubin 0.6 mg/dL (0.2-1.0) Aspartate Amino Transf (AST/SGOT) 16 U/L (15-37) Alanine Aminotransferase (ALT/SGPT) 16 U/L (14-59) Alkaline Phosphatase 52 U/L (46-116) Total Protein 6.4 g/dL (6.4-8.2) Albumin 2.7 g/dL (3.4-5.0) Albumin/Globulin Ratio 0.7 (1.0-1.7) Test 03/22/18 17:06 03/22/18 17:45 03/22/18 19:30 03/22/18 19:55 Glucose (Fingerstick) 74 mg/dL (70-99) 94 mg/dL (70-99) 122 mg/dL (70-99) O2 Saturation 99 % (92-99) Arterial Blood pH 7.45 (7.35-7.45) Arterial Blood pCO2 at Patient Temp 35 mmHg (35-46) Arterial Blood pO2 at Patient Temp 149 mmHg (85-108) Arterial Blood HCO3 24 mmol/L (21-28) Arterial Blood Base Excess 0 mmol/L (-3-3) FiO2 36 Test 03/22/18 21:30 03/22/18 23:51 03/23/18 01:30 03/23/18 03:28 Glucose (Fingerstick) 126 mg/dL (70-99) 79 mg/dL (70-99) 89 mg/dL (70-99) 119 mg/dL (70-99) Test 03/23/18 06:32 03/23/18 09:40 03/23/18 11:54 03/23/18 14:30 Erythrocyte Sedimentation Rate 21 (0-25) Sodium Level 136 mmol/L (136-145) 136 mmol/L (136-145) Potassium Level 4.0 mmol/L (3.5-5.1) 3.3 mmol/L (3.5-5.1) Chloride Level 103 mmol/L (98-107) 103 mmol/L (98-107) Carbon Dioxide Level 27 mmol/L (21-32) 26 mmol/L (21-32) Anion Gap 6 (6-14) 7 (6-14) Blood Urea Nitrogen 4 mg/dL (7-20) 5 mg/dL (7-20) Creatinine 0.7 mg/dL (0.6-1.0) 0.6 mg/dL (0.6-1.0) Estimated GFR (Cockcroft-Gault) 114.6 136.9 BUN/Creatinine Ratio 6 (6-20) 8 (6-20) Glucose Level 75 mg/dL (70-99) 73 mg/dL (70-99) Calcium Level 8.5 mg/dL (8.5-10.1) 8.6 mg/dL (8.5-10.1) Total Bilirubin 0.6 mg/dL (0.2-1.0) 0.6 mg/dL (0.2-1.0) Aspartate Amino Transf (AST/SGOT) 14 U/L (15-37) 16 U/L (15-37) Alanine Aminotransferase (ALT/SGPT) 17 U/L (14-59) 17 U/L (14-59) Alkaline Phosphatase 62 U/L (46-116) 70 U/L (46-116) Total Protein 7.4 g/dL (6.4-8.2) 7.4 g/dL (6.4-8.2) Albumin 3.0 g/dL (3.4-5.0) 3.0 g/dL (3.4-5.0) Albumin/Globulin Ratio 0.7 (1.0-1.7) 0.7 (1.0-1.7) Thyroid Stimulating Hormone (TSH) 0.714 uIU/mL (0.358-3.74) Free Triiodothyronine (T3) pg/mL 2.11 pg/mL (2.18-3.98) Total Triiodothyronine 168 ng/dL (71-180) Cortisol AM Sample 22.1 ug/dL (4.3-22.4) Glucose (Fingerstick) 76 mg/dL (70-99) 105 mg/dL (70-99) White Blood Count 7.4 x10^3/uL (4.0-11.0) Red Blood Count 3.61 x10^6/uL (3.50-5.40) Hemoglobin 9.2 g/dL (12.0-15.5) Hematocrit 28.4 % (36.0-47.0) Mean Corpuscular Volume 79 fL (79-100) Mean Corpuscular Hemoglobin 26 pg (25-35) Mean Corpuscular Hemoglobin Concent 32 g/dL (31-37) Red Cell Distribution Width 17.7 % (11.5-14.5) Platelet Count 287 x10^3/uL (140-400) Magnesium Level 1.9 mg/dL (1.8-2.4) Test 03/23/18 17:52 03/23/18 21:07 03/23/18 23:09 03/24/18 04:59 Glucose (Fingerstick) 106 mg/dL (70-99) 88 mg/dL (70-99) 83 mg/dL (70-99) 109 mg/dL (70-99) Test 03/24/18 09:00 03/24/18 10:42 White Blood Count 8.0 x10^3/uL (4.0-11.0) Red Blood Count 3.69 x10^6/uL (3.50-5.40) Hemoglobin 9.5 g/dL (12.0-15.5) Hematocrit 29.3 % (36.0-47.0) Mean Corpuscular Volume 79 fL (79-100) Mean Corpuscular Hemoglobin 26 pg (25-35) Mean Corpuscular Hemoglobin Concent 32 g/dL (31-37) Red Cell Distribution Width 17.6 % (11.5-14.5) Platelet Count 285 x10^3/uL (140-400) Sodium Level 136 mmol/L (136-145) Potassium Level 3.4 mmol/L (3.5-5.1) Chloride Level 102 mmol/L (98-107) Carbon Dioxide Level 27 mmol/L (21-32) Anion Gap 7 (6-14) Blood Urea Nitrogen 8 mg/dL (7-20) Creatinine 0.5 mg/dL (0.6-1.0) Estimated GFR (Cockcroft-Gault) 168.9 Glucose Level 66 mg/dL (70-99) Calcium Level 8.6 mg/dL (8.5-10.1) Magnesium Level 1.6 mg/dL (1.8-2.4) Glucose (Fingerstick) 116 mg/dL (70-99) Laboratory Tests Test 03/23/18 14:30 03/23/18 17:52 03/23/18 21:07 03/23/18 23:09 White Blood Count 7.4 x10^3/uL (4.0-11.0) Red Blood Count 3.61 x10^6/uL (3.50-5.40) Hemoglobin 9.2 g/dL (12.0-15.5) Hematocrit 28.4 % (36.0-47.0) Mean Corpuscular Volume 79 fL (79-100) Mean Corpuscular Hemoglobin 26 pg (25-35) Mean Corpuscular Hemoglobin Concent 32 g/dL (31-37) Red Cell Distribution Width 17.7 % (11.5-14.5) Platelet Count 287 x10^3/uL (140-400) Sodium Level 136 mmol/L (136-145) Potassium Level 3.3 mmol/L (3.5-5.1) Chloride Level 103 mmol/L (98-107) Carbon Dioxide Level 26 mmol/L (21-32) Anion Gap 7 (6-14) Blood Urea Nitrogen 5 mg/dL (7-20) Creatinine 0.6 mg/dL (0.6-1.0) Estimated GFR (Cockcroft-Gault) 136.9 BUN/Creatinine Ratio 8 (6-20) Glucose Level 73 mg/dL (70-99) Calcium Level 8.6 mg/dL (8.5-10.1) Magnesium Level 1.9 mg/dL (1.8-2.4) Total Bilirubin 0.6 mg/dL (0.2-1.0) Aspartate Amino Transf (AST/SGOT) 16 U/L (15-37) Alanine Aminotransferase (ALT/SGPT) 17 U/L (14-59) Alkaline Phosphatase 70 U/L (46-116) Total Protein 7.4 g/dL (6.4-8.2) Albumin 3.0 g/dL (3.4-5.0) Albumin/Globulin Ratio 0.7 (1.0-1.7) Glucose (Fingerstick) 106 mg/dL (70-99) 88 mg/dL (70-99) 83 mg/dL (70-99) Test 03/24/18 04:59 03/24/18 09:00 03/24/18 10:42 Glucose (Fingerstick) 109 mg/dL (70-99) 116 mg/dL (70-99) White Blood Count 8.0 x10^3/uL (4.0-11.0) Red Blood Count 3.69 x10^6/uL (3.50-5.40) Hemoglobin 9.5 g/dL (12.0-15.5) Hematocrit 29.3 % (36.0-47.0) Mean Corpuscular Volume 79 fL (79-100) Mean Corpuscular Hemoglobin 26 pg (25-35) Mean Corpuscular Hemoglobin Concent 32 g/dL (31-37) Red Cell Distribution Width 17.6 % (11.5-14.5) Platelet Count 285 x10^3/uL (140-400) Sodium Level 136 mmol/L (136-145) Potassium Level 3.4 mmol/L (3.5-5.1) Chloride Level 102 mmol/L (98-107) Carbon Dioxide Level 27 mmol/L (21-32) Anion Gap 7 (6-14) Blood Urea Nitrogen 8 mg/dL (7-20) Creatinine 0.5 mg/dL (0.6-1.0) Estimated GFR (Cockcroft-Gault) 168.9 Glucose Level 66 mg/dL (70-99) Calcium Level 8.6 mg/dL (8.5-10.1) Magnesium Level 1.6 mg/dL (1.8-2.4) Medications Current Medications Ringer's Solution 1,000 ml @ 125 mls/hr Q8H IV Last administered on 03/22/18at 12:51; Start 03/22/18 at 12:00; Stop 03/24/18 at 11:30; Status DC Ondansetron HCl (Zofran) 8 mg PRN Q6HRS PRN IV NAUSEA 1ST CHOICE Last administered on 03/22/18at 12:52; Start 03/22/18 at 11:30 Furosemide (Lasix) 40 mg Q12HR IVP ; Start 03/22/18 at 21:00; Stop 03/22/18 at 21:00; Status DC Dobutamine HCl/ Dextrose 250 ml @ 11.363 mls/ hr CONT PRN IV SEE I/O RECORD Last administered on 03/22/18at 15:16; Start 03/22/18 at 15:00 Dextrose (Dextrose 50%-Water Syringe) 25 gm STK-MED ONCE IV ; Start 03/22/18 at 15:19; Stop 03/22/18 at 15:20; Status DC Furosemide (Lasix) 40 mg Q12HR IVP Last administered on 03/23/18at 20:58; Start 03/22/18 at 16:30; Stop 03/23/18 at 21:17; Status DC Magnesium Sulfate 50 ml @ 25 mls/hr 1X ONCE IV Last administered on 03/22/18at 19:47; Start 03/22/18 at 16:15; Stop 03/22/18 at 18:14; Status DC Acetaminophen (Tylenol) 650 mg PRN Q6HRS PRN PO MILD PAIN / TEMP Last administered on 03/24/18at 08:54; Start 03/22/18 at 19:45 Sodium Chloride 1,000 ml @ 40 mls/hr Q24H IV Last administered on 03/23/18at 15 :53; Start 03/23/18 at 14:00 Potassium Chloride/Water 100 ml @ 100 mls/hr Q1H IV Last administered on at 17:00; Start 03/23/18 at 16:00; Stop 03/23/18 at 17:59; Status DC Furosemide (Lasix) 40 mg Q12HR IVP Last administered on 03/24/18at 08:54; Start 03/24/18 at 09:00 Magnesium Sulfate 50 ml @ 25 mls/hr 1X ONCE IV Last administered on 03/24/18at 13:04; Start 03/24/18 at 13:00; Stop 03/24/18 at 14:59 Potassium Chloride/Water 50 ml @ 50 mls/hr 1X ONCE IV ; Start 03/24/18 at 13:00 ; Stop 03/24/18 at 13:59; Status UNV Potassium Chloride/Water 100 ml @ 100 mls/hr Q1H IV Last administered on at 12:47; Start 03/24/18 at 13:00; Stop 03/24/18 at 14:59 Active Scripts Active Tablet (Pnv Cmb#95/Ferrous Fumarate/Fa) 1 Each Tablet 1 Tab PO DAILY Cephalexin 500 Mg Tablet 1 Tab PO BID Ibuprofen 600 Mg Tablet 600 Mg PO PRN Q6HRS PRN take with food or milk Lisinopril 5 Mg Tablet 5 Mg PO DAILY Furosemide 40 Mg Tablet 20 Mg PO DAILY Carvedilol 6.25 Mg Tablet 3.125 Mg PO BIDWMEALS Aspirin Ec (Aspirin) 81 Mg Tablet. 81 Mg PO [id number] Vitals/I & O Vital Sign - Last 24 Hours 03/23/18 03/23/18 03/23/18 03/23/18 14:00 15:00 16:00 16:00 Temp 98.0 98.0 Pulse 70 71 69 Resp 11 19 21 B/P (MAP) 111/56 (74) 108/69 (82) 112/64 (80) Pulse Ox 100 100 99 O2 Delivery Nasal Cannula Nasal Cannula Nasal Cannula Nasal Cannula O2 Flow Rate 4.0 4.0 4.0 4.0 03/23/18 03/23/18 03/23/18 03/23/18 17:00 18:00 20:03 20:14 Temp 98.7 98.7 Pulse 65 68 100 Resp 14 15 18 B/P (MAP) 117/62 (80) 107/64 (78) 117/69 (85) Pulse Ox 100 100 O2 Delivery Nasal Cannula Nasal Cannula Nasal Cannula Nasal Cannula O2 Flow Rate 4.0 4.0 4.0 4.0 03/23/18 03/23/18 03/23/18 03/23/18 21:28 22:26 23:00 23:28 Pulse 68 68 65 Resp 20 20 33 B/P (MAP) 113/80 (91) 133/72 (92) 112/67 (82) Pulse Ox 100 100 O2 Delivery Nasal Cannula Nasal Cannula Nasal Cannula Nasal Cannula O2 Flow Rate 4.0 4.0 4.0 4.0 03/24/18 03/24/18 03/24/18 03/24/18 00:00 01:00 02:00 03:00 Temp 98.6 98.7 98.6 98.7 Pulse 68 65 65 76 Resp 20 25 24 16 B/P (MAP) 104/56 (72) 100/63 (75) 109/62 (78) 99/55 (70) Pulse Ox 100 100 100 100 O2 Delivery Nasal Cannula Room Air Nasal Cannula Nasal Cannula O2 Flow Rate 4.0 4.0 4.0 4.0 03/24/18 03/24/18 03/24/18 03/24/18 03:34 04:00 05:03 05:43 Pulse 97 67 71 Resp 22 18 19 B/P (MAP) 101/68 (79) 105/61 (76) 105/57 (73) Pulse Ox 100 100 100 O2 Delivery Nasal Cannula Nasal Cannula Nasal Cannula Nasal Cannula O2 Flow Rate 4.0 4.0 4.0 4.0 03/24/18 03/24/18 03/24/18 03/24/18 06:00 07:00 08:00 08:00 Temp 98.7 98.7 Pulse 71 72 79 Resp 10 15 B/P (MAP) 102/68 (79) 105/67 (80) 112/68 (83) Pulse Ox 100 100 100 O2 Delivery Nasal Cannula Nasal Cannula Nasal Cannula Nasal Cannula O2 Flow Rate 4.0 4.0 4.0 4.0 03/24/18 03/24/18 03/24/18 03/24/18 09:00 10:00 11:00 11:45 Temp 98.8 98.8 Pulse 73 75 85 Resp 20 16 18 B/P (MAP) 111/68 (82) 100/59 (73) 110/64 (79) Pulse Ox 100 100 100 O2 Delivery Nasal Cannula Nasal Cannula Nasal Cannula Nasal Cannula O2 Flow Rate 4.0 4.0 4.0 4.0 03/24/18 03/24/18 11:50 13:00 Pulse 85 78 Resp 18 18 B/P (MAP) 100/58 (72) 115/66 (82) Pulse Ox 100 100 O2 Delivery Nasal Cannula Nasal Cannula O2 Flow Rate 4.0 4.0 Intake and Output 03/23/18 03/23/18 03/24/18 15:00 23:00 07:00 Intake Total 500 ml 270 ml 406 ml Output Total 1230 ml 1910 ml 90 ml Balance -730 ml -1640 ml 316 ml QING TIRADO MD Mar 24, 2018 13:41
--- NOTE | 2018-03-24 13:52 | PDOC ---
OB Progress Note Date of Service 03/24/18 Time of Evaluation 1350 Notes Pt. feeling better. She is on [place] oxygen. She denies SOB, CP or abd pain. Discussed plan of care with family. Lab Laboratory Tests Test 03/22/18 15:13 03/22/18 15:18 03/22/18 15:20 03/22/18 15:43 Nasal Screen MRSA (PCR) Negative (Negative) Glucose (Fingerstick) 57 mg/dL (70-99) 77 mg/dL (70-99) White Blood Count 8.1 x10^3/uL (4.0-11.0) Red Blood Count 2.99 x10^6/uL (3.50-5.40) Hemoglobin 7.8 g/dL (12.0-15.5) Hematocrit 23.6 % (36.0-47.0) Mean Corpuscular Volume 79 fL (79-100) Mean Corpuscular Hemoglobin 26 pg (25-35) Mean Corpuscular Hemoglobin Concent 33 g/dL (31-37) Red Cell Distribution Width 17.8 % (11.5-14.5) Platelet Count 239 x10^3/uL (140-400) Neutrophils (%) (Auto) 66 % (31-73) Lymphocytes (%) (Auto) 22 % (24-48) Monocytes (%) (Auto) 9 % (0-9) Eosinophils (%) (Auto) 2 % (0-3) Basophils (%) (Auto) 1 % (0-3) Neutrophils # (Auto) 5.3 x10^3uL (1.8-7.7) Lymphocytes # (Auto) 1.8 x10^3/uL (1.0-4.8) Monocytes # (Auto) 0.7 x10^3/uL (0.0-1.1) Eosinophils # (Auto) 0.2 x10^3/uL (0.0-0.7) Basophils # (Auto) 0.1 x10^3/uL (0.0-0.2) Prothrombin Time 14.0 SEC (11.7-14.0) Prothromb Time International Ratio 1.1 (0.8-1.1) Activated Partial Thromboplast Time 28 SEC (24-38) Sodium Level 137 mmol/L (136-145) Potassium Level 3.6 mmol/L (3.5-5.1) Chloride Level 104 mmol/L (98-107) Carbon Dioxide Level 24 mmol/L (21-32) Anion Gap 9 (6-14) Blood Urea Nitrogen 6 mg/dL (7-20) Creatinine 0.6 mg/dL (0.6-1.0) Estimated GFR (Cockcroft-Gault) 136.9 BUN/Creatinine Ratio 10 (6-20) Glucose Level 64 mg/dL (70-99) Calcium Level 8.1 mg/dL (8.5-10.1) Magnesium Level 1.7 mg/dL (1.8-2.4) Total Bilirubin 0.6 mg/dL (0.2-1.0) Aspartate Amino Transf (AST/SGOT) 16 U/L (15-37) Alanine Aminotransferase (ALT/SGPT) 16 U/L (14-59) Alkaline Phosphatase 52 U/L (46-116) Total Protein 6.4 g/dL (6.4-8.2) Albumin 2.7 g/dL (3.4-5.0) Albumin/Globulin Ratio 0.7 (1.0-1.7) Test 03/22/18 17:06 03/22/18 17:45 03/22/18 19:30 03/22/18 19:55 Glucose (Fingerstick) 74 mg/dL (70-99) 94 mg/dL (70-99) 122 mg/dL (70-99) O2 Saturation 99 % (92-99) Arterial Blood pH 7.45 (7.35-7.45) Arterial Blood pCO2 at Patient Temp 35 mmHg (35-46) Arterial Blood pO2 at Patient Temp 149 mmHg (85-108) Arterial Blood HCO3 24 mmol/L (21-28) Arterial Blood Base Excess 0 mmol/L (-3-3) FiO2 36 Test 03/22/18 21:30 03/22/18 23:51 03/23/18 01:30 03/23/18 03:28 Glucose (Fingerstick) 126 mg/dL (70-99) 79 mg/dL (70-99) 89 mg/dL (70-99) 119 mg/dL (70-99) Test 03/23/18 06:32 03/23/18 09:40 03/23/18 11:54 03/23/18 14:30 Erythrocyte Sedimentation Rate 21 (0-25) Sodium Level 136 mmol/L (136-145) 136 mmol/L (136-145) Potassium Level 4.0 mmol/L (3.5-5.1) 3.3 mmol/L (3.5-5.1) Chloride Level 103 mmol/L (98-107) 103 mmol/L (98-107) Carbon Dioxide Level 27 mmol/L (21-32) 26 mmol/L (21-32) Anion Gap 6 (6-14) 7 (6-14) Blood Urea Nitrogen 4 mg/dL (7-20) 5 mg/dL (7-20) Creatinine 0.7 mg/dL (0.6-1.0) 0.6 mg/dL (0.6-1.0) Estimated GFR (Cockcroft-Gault) 114.6 136.9 BUN/Creatinine Ratio 6 (6-20) 8 (6-20) Glucose Level 75 mg/dL (70-99) 73 mg/dL (70-99) Calcium Level 8.5 mg/dL (8.5-10.1) 8.6 mg/dL (8.5-10.1) Total Bilirubin 0.6 mg/dL (0.2-1.0) 0.6 mg/dL (0.2-1.0) Aspartate Amino Transf (AST/SGOT) 14 U/L (15-37) 16 U/L (15-37) Alanine Aminotransferase (ALT/SGPT) 17 U/L (14-59) 17 U/L (14-59) Alkaline Phosphatase 62 U/L (46-116) 70 U/L (46-116) Total Protein 7.4 g/dL (6.4-8.2) 7.4 g/dL (6.4-8.2) Albumin 3.0 g/dL (3.4-5.0) 3.0 g/dL (3.4-5.0) Albumin/Globulin Ratio 0.7 (1.0-1.7) 0.7 (1.0-1.7) Thyroid Stimulating Hormone (TSH) 0.714 uIU/mL (0.358-3.74) Free Triiodothyronine (T3) pg/mL 2.11 pg/mL (2.18-3.98) Total Triiodothyronine 168 ng/dL (71-180) Cortisol AM Sample 22.1 ug/dL (4.3-22.4) Glucose (Fingerstick) 76 mg/dL (70-99) 105 mg/dL (70-99) White Blood Count 7.4 x10^3/uL (4.0-11.0) Red Blood Count 3.61 x10^6/uL (3.50-5.40) Hemoglobin 9.2 g/dL (12.0-15.5) Hematocrit 28.4 % (36.0-47.0) Mean Corpuscular Volume 79 fL (79-100) Mean Corpuscular Hemoglobin 26 pg (25-35) Mean Corpuscular Hemoglobin Concent 32 g/dL (31-37) Red Cell Distribution Width 17.7 % (11.5-14.5) Platelet Count 287 x10^3/uL (140-400) Magnesium Level 1.9 mg/dL (1.8-2.4) Test 03/23/18 17:52 03/23/18 21:07 03/23/18 23:09 03/24/18 04:59 Glucose (Fingerstick) 106 mg/dL (70-99) 88 mg/dL (70-99) 83 mg/dL (70-99) 109 mg/dL (70-99) Test 03/24/18 09:00 03/24/18 10:42 White Blood Count 8.0 x10^3/uL (4.0-11.0) Red Blood Count 3.69 x10^6/uL (3.50-5.40) Hemoglobin 9.5 g/dL (12.0-15.5) Hematocrit 29.3 % (36.0-47.0) Mean Corpuscular Volume 79 fL (79-100) Mean Corpuscular Hemoglobin 26 pg (25-35) Mean Corpuscular Hemoglobin Concent 32 g/dL (31-37) Red Cell Distribution Width 17.6 % (11.5-14.5) Platelet Count 285 x10^3/uL (140-400) Sodium Level 136 mmol/L (136-145) Potassium Level 3.4 mmol/L (3.5-5.1) Chloride Level 102 mmol/L (98-107) Carbon Dioxide Level 27 mmol/L (21-32) Anion Gap 7 (6-14) Blood Urea Nitrogen 8 mg/dL (7-20) Creatinine 0.5 mg/dL (0.6-1.0) Estimated GFR (Cockcroft-Gault) 168.9 Glucose Level 66 mg/dL (70-99) Calcium Level 8.6 mg/dL (8.5-10.1) Magnesium Level 1.6 mg/dL (1.8-2.4) Glucose (Fingerstick) 116 mg/dL (70-99) Laboratory Tests Test 03/23/18 14:30 03/23/18 17:52 03/23/18 21:07 03/23/18 23:09 White Blood Count 7.4 x10^3/uL (4.0-11.0) Red Blood Count 3.61 x10^6/uL (3.50-5.40) Hemoglobin 9.2 g/dL (12.0-15.5) Hematocrit 28.4 % (36.0-47.0) Mean Corpuscular Volume 79 fL (79-100) Mean Corpuscular Hemoglobin 26 pg (25-35) Mean Corpuscular Hemoglobin Concent 32 g/dL (31-37) Red Cell Distribution Width 17.7 % (11.5-14.5) Platelet Count 287 x10^3/uL (140-400) Sodium Level 136 mmol/L (136-145) Potassium Level 3.3 mmol/L (3.5-5.1) Chloride Level 103 mmol/L (98-107) Carbon Dioxide Level 26 mmol/L (21-32) Anion Gap 7 (6-14) Blood Urea Nitrogen 5 mg/dL (7-20) Creatinine 0.6 mg/dL (0.6-1.0) Estimated GFR (Cockcroft-Gault) 136.9 BUN/Creatinine Ratio 8 (6-20) Glucose Level 73 mg/dL (70-99) Calcium Level 8.6 mg/dL (8.5-10.1) Magnesium Level 1.9 mg/dL (1.8-2.4) Total Bilirubin 0.6 mg/dL (0.2-1.0) Aspartate Amino Transf (AST/SGOT) 16 U/L (15-37) Alanine Aminotransferase (ALT/SGPT) 17 U/L (14-59) Alkaline Phosphatase 70 U/L (46-116) Total Protein 7.4 g/dL (6.4-8.2) Albumin 3.0 g/dL (3.4-5.0) Albumin/Globulin Ratio 0.7 (1.0-1.7) Glucose (Fingerstick) 106 mg/dL (70-99) 88 mg/dL (70-99) 83 mg/dL (70-99) Test 03/24/18 04:59 03/24/18 09:00 03/24/18 10:42 Glucose (Fingerstick) 109 mg/dL (70-99) 116 mg/dL (70-99) White Blood Count 8.0 x10^3/uL (4.0-11.0) Red Blood Count 3.69 x10^6/uL (3.50-5.40) Hemoglobin 9.5 g/dL (12.0-15.5) Hematocrit 29.3 % (36.0-47.0) Mean Corpuscular Volume 79 fL (79-100) Mean Corpuscular Hemoglobin 26 pg (25-35) Mean Corpuscular Hemoglobin Concent 32 g/dL (31-37) Red Cell Distribution Width 17.6 % (11.5-14.5) Platelet Count 285 x10^3/uL (140-400) Sodium Level 136 mmol/L (136-145) Potassium Level 3.4 mmol/L (3.5-5.1) Chloride Level 102 mmol/L (98-107) Carbon Dioxide Level 27 mmol/L (21-32) Anion Gap 7 (6-14) Blood Urea Nitrogen 8 mg/dL (7-20) Creatinine 0.5 mg/dL (0.6-1.0) Estimated GFR (Cockcroft-Gault) 168.9 Glucose Level 66 mg/dL (70-99) Calcium Level 8.6 mg/dL (8.5-10.1) Magnesium Level 1.6 mg/dL (1.8-2.4) Medications Current Medications Ringer's Solution 1,000 ml @ 125 mls/hr Q8H IV Last administered on 03/22/18at 12:51; Start 03/22/18 at 12:00; Stop 03/24/18 at 11:30; Status DC Ondansetron HCl (Zofran) 8 mg PRN Q6HRS PRN IV NAUSEA 1ST CHOICE Last administered on 03/22/18at 12:52; Start 03/22/18 at 11:30 Furosemide (Lasix) 40 mg Q12HR IVP ; Start 03/22/18 at 21:00; Stop 03/22/18 at 21:00; Status DC Dobutamine HCl/ Dextrose 250 ml @ 11.363 mls/ hr CONT PRN IV SEE I/O RECORD Last administered on 03/22/18at 15:16; Start 03/22/18 at 15:00 Dextrose (Dextrose 50%-Water Syringe) 25 gm STK-MED ONCE IV ; Start 03/22/18 at 15:19; Stop 03/22/18 at 15:20; Status DC Furosemide (Lasix) 40 mg Q12HR IVP Last administered on 03/23/18at 20:58; Start 03/22/18 at 16:30; Stop 03/23/18 at 21:17; Status DC Magnesium Sulfate 50 ml @ 25 mls/hr 1X ONCE IV Last administered on 03/22/18at 19:47; Start 03/22/18 at 16:15; Stop 03/22/18 at 18:14; Status DC Acetaminophen (Tylenol) 650 mg PRN Q6HRS PRN PO MILD PAIN / TEMP Last administered on 03/24/18at 08:54; Start 03/22/18 at 19:45 Sodium Chloride 1,000 ml @ 40 mls/hr Q24H IV Last administered on 03/23/18at 15 :53; Start 03/23/18 at 14:00 Potassium Chloride/Water 100 ml @ 100 mls/hr Q1H IV Last administered on at 17:00; Start 03/23/18 at 16:00; Stop 03/23/18 at 17:59; Status DC Furosemide (Lasix) 40 mg Q12HR IVP Last administered on 03/24/18at 08:54; Start 03/24/18 at 09:00 Magnesium Sulfate 50 ml @ 25 mls/hr 1X ONCE IV Last administered on 03/24/18at 13:04; Start 03/24/18 at 13:00; Stop 03/24/18 at 14:59 Potassium Chloride/Water 50 ml @ 50 mls/hr 1X ONCE IV ; Start 03/24/18 at 13:00 ; Stop 03/24/18 at 13:59; Status UNV Potassium Chloride/Water 100 ml @ 100 mls/hr Q1H IV Last administered on at 13:47; Start 03/24/18 at 13:00; Stop 03/24/18 at 14:59 Active Scripts Active Tablet (Pnv Cmb#95/Ferrous Fumarate/Fa) 1 Each Tablet 1 Tab PO DAILY Cephalexin 500 Mg Tablet 1 Tab PO BID Ibuprofen 600 Mg Tablet 600 Mg PO PRN Q6HRS PRN take with food or milk Lisinopril 5 Mg Tablet 5 Mg PO DAILY Furosemide 40 Mg Tablet 20 Mg PO DAILY Carvedilol 6.25 Mg Tablet 3.125 Mg PO BIDWMEALS Aspirin Ec (Aspirin) 81 Mg Tablet. 81 Mg PO DAILYWBKFT Exam Abd: soft, non tender Assessment 22 wks IUP Cardiomyopathy, mild to moderate Plan of Care: Continue current Tx, Mgmt (Anticipate d/c home tomorrow.) KORTNEY YA Jr, MD Mar 24, 2018 13:52
[2018-03-24] MEDS: IV 1/2 NORMAL SALINE 1,000 ML IV SCH (20:11)
[2018-03-25] MEDS: ACETAMINOPHEN 325 MG TABLET. PO PRN (06:17)
[2018-03-25 06:18] VITALS: BP 109/63
[2018-03-25] MEDS ORDERED: ASPIRIN CHEWABLE 81 MG TABLET. PO SCH (08:00)
[2018-03-25 08:45] VITALS: BP 114/61
[2018-03-25] MEDS: FUROSEMIDE 40 MG/4 ML VIAL. IVP SCH (08:57)
[2018-03-25 12:30] VITALS: BP 108/67
--- NOTE | 2018-03-25 12:32 | PDOC ---
OB Progress Note Date of Service 03/25/18 Time of Evaluation 1230 Notes Pt. feeling well. No H/A, CP or SOB. Pt. tolerating room air. Lab Laboratory Tests Test 03/23/18 14:30 03/23/18 17:52 03/23/18 21:07 03/23/18 23:09 White Blood Count 7.4 x10^3/uL (4.0-11.0) Red Blood Count 3.61 x10^6/uL (3.50-5.40) Hemoglobin 9.2 g/dL (12.0-15.5) Hematocrit 28.4 % (36.0-47.0) Mean Corpuscular Volume 79 fL (79-100) Mean Corpuscular Hemoglobin 26 pg (25-35) Mean Corpuscular Hemoglobin Concent 32 g/dL (31-37) Red Cell Distribution Width 17.7 % (11.5-14.5) Platelet Count 287 x10^3/uL (140-400) Sodium Level 136 mmol/L (136-145) Potassium Level 3.3 mmol/L (3.5-5.1) Chloride Level 103 mmol/L (98-107) Carbon Dioxide Level 26 mmol/L (21-32) Anion Gap 7 (6-14) Blood Urea Nitrogen 5 mg/dL (7-20) Creatinine 0.6 mg/dL (0.6-1.0) Estimated GFR (Cockcroft-Gault) 136.9 BUN/Creatinine Ratio 8 (6-20) Glucose Level 73 mg/dL (70-99) Calcium Level 8.6 mg/dL (8.5-10.1) Magnesium Level 1.9 mg/dL (1.8-2.4) Total Bilirubin 0.6 mg/dL (0.2-1.0) Aspartate Amino Transf (AST/SGOT) 16 U/L (15-37) Alanine Aminotransferase (ALT/SGPT) 17 U/L (14-59) Alkaline Phosphatase 70 U/L (46-116) Total Protein 7.4 g/dL (6.4-8.2) Albumin 3.0 g/dL (3.4-5.0) Albumin/Globulin Ratio 0.7 (1.0-1.7) Glucose (Fingerstick) 106 mg/dL (70-99) 88 mg/dL (70-99) 83 mg/dL (70-99) Test 03/24/18 04:59 03/24/18 09:00 03/24/18 10:42 03/24/18 15:15 Glucose (Fingerstick) 109 mg/dL (70-99) 116 mg/dL (70-99) 97 mg/dL (70-99) White Blood Count 8.0 x10^3/uL (4.0-11.0) Red Blood Count 3.69 x10^6/uL (3.50-5.40) Hemoglobin 9.5 g/dL (12.0-15.5) Hematocrit 29.3 % (36.0-47.0) Mean Corpuscular Volume 79 fL (79-100) Mean Corpuscular Hemoglobin 26 pg (25-35) Mean Corpuscular Hemoglobin Concent 32 g/dL (31-37) Red Cell Distribution Width 17.6 % (11.5-14.5) Platelet Count 285 x10^3/uL (140-400) Sodium Level 136 mmol/L (136-145) Potassium Level 3.4 mmol/L (3.5-5.1) Chloride Level 102 mmol/L (98-107) Carbon Dioxide Level 27 mmol/L (21-32) Anion Gap 7 (6-14) Blood Urea Nitrogen 8 mg/dL (7-20) Creatinine 0.5 mg/dL (0.6-1.0) Estimated GFR (Cockcroft-Gault) 168.9 Glucose Level 66 mg/dL (70-99) Calcium Level 8.6 mg/dL (8.5-10.1) Magnesium Level 1.6 mg/dL (1.8-2.4) Laboratory Tests Test 03/24/18 15:15 Glucose (Fingerstick) 97 mg/dL (70-99) Medications Current Medications Ringer's Solution 1,000 ml @ 125 mls/hr Q8H IV Last administered on 03/22/18at 12:51; Start 03/22/18 at 12:00; Stop 03/24/18 at 11:30; Status DC Ondansetron HCl (Zofran) 8 mg PRN Q6HRS PRN IV NAUSEA 1ST CHOICE Last administered on 03/22/18at 12:52; Start 03/22/18 at 11:30 Furosemide (Lasix) 40 mg Q12HR IVP ; Start 03/22/18 at 21:00; Stop 03/22/18 at 21:00; Status DC Dobutamine HCl/ Dextrose 250 ml @ 11.363 mls/ hr CONT PRN IV SEE I/O RECORD Last administered on 03/22/18at 15:16; Start 03/22/18 at 15:00; Stop 03/24/18 at 16:53; Status DC Dextrose (Dextrose 50%-Water Syringe) 25 gm STK-MED ONCE IV ; Start 03/22/18 at 15:19; Stop 03/22/18 at 15:20; Status DC Furosemide (Lasix) 40 mg Q12HR IVP Last administered on 03/23/18at 20:58; Start 03/22/18 at 16:30; Stop 03/23/18 at 21:17; Status DC Magnesium Sulfate 50 ml @ 25 mls/hr 1X ONCE IV Last administered on 03/22/18at 19:47; Start 03/22/18 at 16:15; Stop 03/22/18 at 18:14; Status DC Acetaminophen (Tylenol) 650 mg PRN Q6HRS PRN PO MILD PAIN / TEMP Last administered on 03/25/18at 06:17; Start 03/22/18 at 19:45 Sodium Chloride 1,000 ml @ 40 mls/hr Q24H IV Last administered on 03/24/18at 20 :11; Start 03/23/18 at 14:00 Potassium Chloride/Water 100 ml @ 100 mls/hr Q1H IV Last administered on at 17:00; Start 03/23/18 at 16:00; Stop 03/23/18 at 17:59; Status DC Furosemide (Lasix) 40 mg Q12HR IVP Last administered on 03/25/18at 08:57; Start 03/24/18 at 09:00 Magnesium Sulfate 50 ml @ 25 mls/hr 1X ONCE IV Last administered on 03/24/18at 13:04; Start 03/24/18 at 13:00; Stop 03/24/18 at 14:59; Status DC Potassium Chloride/Water 50 ml @ 50 mls/hr 1X ONCE IV ; Start 03/24/18 at 13:00 ; Stop 03/24/18 at 13:59; Status UNV Potassium Chloride/Water 100 ml @ 100 mls/hr Q1H IV Last administered on at 13:47; Start 03/24/18 at 13:00; Stop 03/24/18 at 14:59; Status DC Aspirin (Children'S Aspirin) 81 mg DAILYWBKFT PO Last administered on 03/25/18at 08:57; Start 03/25/18 at 08:00 Active Scripts Active Tablet (Pnv Cmb#95/Ferrous Fumarate/Fa) 1 Each Tablet 1 Tab PO DAILY Cephalexin 500 Mg Tablet 1 Tab PO BID Ibuprofen 600 Mg Tablet 600 Mg PO PRN Q6HRS PRN take with food or milk Lisinopril 5 Mg Tablet 5 Mg PO DAILY Furosemide 40 Mg Tablet 20 Mg PO DAILY Carvedilol 6.25 Mg Tablet 3.125 Mg PO BIDWMEALS Aspirin Ec (Aspirin) 81 Mg Tablet. 81 Mg PO DAILYWBKFT Exam Abd: soft, non tender Assessment 22 wks IUP Cardiomyopathy mild to moderate Plan of Care: See new orders (D/c home. F/u [facility].) KORTNEY YA Jr, MD Mar 25, 2018 12:32
--- NOTE | 2018-03-25 12:34 | DISCH ---
DISCHARGE INSTRUCTIONS Condition on Discharge Condition on Discharge: Stable Activity After Discharge Activity Instructions for Disc: Activity as tolerated Lifting Instructions after Dis: No heavy lifting, Do not lift >10 pounds Exercise Instruction after Dis: Progress as tolerated Driving Instructions after Dis: Do not drive today Weight Bearing Status after Di: Partial weight bearing Diet after Discharge Diet after Discharge: Cardiac Wound Incision Care Wound/Incision Care: Keep wound/cast CDI Wound Care Equipment: Dressings Checks after Discharge Checks after discharge: Check your Temp as needed Contacting the DR. after DC Call your doctor for: Concerns you may have Follow-Up Follow up with: [facility] KORTNEY YA Jr, MD Mar 25, 2018 12:34
--- NOTE | 2018-03-25 13:29 | PDOC ---
PROGRESS NOTES Subjective Subjective feels better today. No dyspnea. Objective Objective Vital Signs Date Time Temp Pulse Resp B/P (MAP) Pulse Ox O2 Delivery O2 Flow Rate FiO2 03/25/18 08:30 Nasal Cannula 4.0 03/25/18 06:18 98.1 78 18 109/63 (78) 100 98.1 Intake and Output 03/25/18 07:00 Intake Total 2204 ml Output Total 3430 ml Balance -1226 ml Intake Oral 880 ml IV Total 770 ml Other 554 ml Output Urine Total 3430 ml Physical Exam Physical Exam Moving air better. Lungs are clear. No changes in heart sounds. No significant edema. Assessment Assessment Patient appears to be stable. I would like to get her up and about and DC the Kang. If she is able to tolerate ambulation well and able to urinate without difficulty patient may be discharged. She is to see me within 2 weeks in the office. Comment Review of Relevant I have reviewed the following items cholo (where applicable) has been applied. Labs Laboratory Tests Test 03/23/18 14:30 03/23/18 17:52 03/23/18 21:07 03/23/18 23:09 White Blood Count 7.4 x10^3/uL (4.0-11.0) Red Blood Count 3.61 x10^6/uL (3.50-5.40) Hemoglobin 9.2 g/dL (12.0-15.5) Hematocrit 28.4 % (36.0-47.0) Mean Corpuscular Volume 79 fL (79-100) Mean Corpuscular Hemoglobin 26 pg (25-35) Mean Corpuscular Hemoglobin Concent 32 g/dL (31-37) Red Cell Distribution Width 17.7 % (11.5-14.5) Platelet Count 287 x10^3/uL (140-400) Sodium Level 136 mmol/L (136-145) Potassium Level 3.3 mmol/L (3.5-5.1) Chloride Level 103 mmol/L (98-107) Carbon Dioxide Level 26 mmol/L (21-32) Anion Gap 7 (6-14) Blood Urea Nitrogen 5 mg/dL (7-20) Creatinine 0.6 mg/dL (0.6-1.0) Estimated GFR (Cockcroft-Gault) 136.9 BUN/Creatinine Ratio 8 (6-20) Glucose Level 73 mg/dL (70-99) Calcium Level 8.6 mg/dL (8.5-10.1) Magnesium Level 1.9 mg/dL (1.8-2.4) Total Bilirubin 0.6 mg/dL (0.2-1.0) Aspartate Amino Transf (AST/SGOT) 16 U/L (15-37) Alanine Aminotransferase (ALT/SGPT) 17 U/L (14-59) Alkaline Phosphatase 70 U/L (46-116) Total Protein 7.4 g/dL (6.4-8.2) Albumin 3.0 g/dL (3.4-5.0) Albumin/Globulin Ratio 0.7 (1.0-1.7) Glucose (Fingerstick) 106 mg/dL (70-99) 88 mg/dL (70-99) 83 mg/dL (70-99) Test 03/24/18 04:59 03/24/18 09:00 03/24/18 10:42 03/24/18 15:15 Glucose (Fingerstick) 109 mg/dL (70-99) 116 mg/dL (70-99) 97 mg/dL (70-99) White Blood Count 8.0 x10^3/uL (4.0-11.0) Red Blood Count 3.69 x10^6/uL (3.50-5.40) Hemoglobin 9.5 g/dL (12.0-15.5) Hematocrit 29.3 % (36.0-47.0) Mean Corpuscular Volume 79 fL (79-100) Mean Corpuscular Hemoglobin 26 pg (25-35) Mean Corpuscular Hemoglobin Concent 32 g/dL (31-37) Red Cell Distribution Width 17.6 % (11.5-14.5) Platelet Count 285 x10^3/uL (140-400) Sodium Level 136 mmol/L (136-145) Potassium Level 3.4 mmol/L (3.5-5.1) Chloride Level 102 mmol/L (98-107) Carbon Dioxide Level 27 mmol/L (21-32) Anion Gap 7 (6-14) Blood Urea Nitrogen 8 mg/dL (7-20) Creatinine 0.5 mg/dL (0.6-1.0) Estimated GFR (Cockcroft-Gault) 168.9 Glucose Level 66 mg/dL (70-99) Calcium Level 8.6 mg/dL (8.5-10.1) Magnesium Level 1.6 mg/dL (1.8-2.4) Laboratory Tests Test 03/24/18 15:15 Glucose (Fingerstick) 97 mg/dL (70-99) Medications Current Medications Ringer's Solution 1,000 ml @ 125 mls/hr Q8H IV Last administered on 03/22/18at 12:51; Start 03/22/18 at 12:00; Stop 03/24/18 at 11:30; Status DC Ondansetron HCl (Zofran) 8 mg PRN Q6HRS PRN IV NAUSEA 1ST CHOICE Last administered on 03/22/18at 12:52; Start 03/22/18 at 11:30 Furosemide (Lasix) 40 mg Q12HR IVP ; Start 03/22/18 at 21:00; Stop 03/22/18 at 21:00; Status DC Dobutamine HCl/ Dextrose 250 ml @ 11.363 mls/ hr CONT PRN IV SEE I/O RECORD Last administered on 03/22/18at 15:16; Start 03/22/18 at 15:00; Stop 03/24/18 at 16:53; Status DC Dextrose (Dextrose 50%-Water Syringe) 25 gm STK-MED ONCE IV ; Start 03/22/18 at 15:19; Stop 03/22/18 at 15:20; Status DC Furosemide (Lasix) 40 mg Q12HR IVP Last administered on 03/23/18at 20:58; Start 03/22/18 at 16:30; Stop 03/23/18 at 21:17; Status DC Magnesium Sulfate 50 ml @ 25 mls/hr 1X ONCE IV Last administered on 03/22/18at 19:47; Start 03/22/18 at 16:15; Stop 03/22/18 at 18:14; Status DC Acetaminophen (Tylenol) 650 mg PRN Q6HRS PRN PO MILD PAIN / TEMP Last administered on 03/25/18at 06:17; Start 03/22/18 at 19:45 Sodium Chloride 1,000 ml @ 40 mls/hr Q24H IV Last administered on 03/24/18at 20 :11; Start 03/23/18 at 14:00 Potassium Chloride/Water 100 ml @ 100 mls/hr Q1H IV Last administered on at 17:00; Start 03/23/18 at 16:00; Stop 03/23/18 at 17:59; Status DC Furosemide (Lasix) 40 mg Q12HR IVP Last administered on 03/25/18at 08:57; Start 03/24/18 at 09:00 Magnesium Sulfate 50 ml @ 25 mls/hr 1X ONCE IV Last administered on 03/24/18at 13:04; Start 03/24/18 at 13:00; Stop 03/24/18 at 14:59; Status DC Potassium Chloride/Water 50 ml @ 50 mls/hr 1X ONCE IV ; Start 03/24/18 at 13:00 ; Stop 03/24/18 at 13:59; Status UNV Potassium Chloride/Water 100 ml @ 100 mls/hr Q1H IV Last administered on at 13:47; Start 03/24/18 at 13:00; Stop 03/24/18 at 14:59; Status DC Aspirin (Children'S Aspirin) 81 mg DAILYWBKFT PO Last administered on 03/25/18at 08:57; Start 03/25/18 at 08:00 Active Scripts Active Tablet (Pnv Cmb#95/Ferrous Fumarate/Fa) 1 Each Tablet 1 Tab PO DAILY Cephalexin 500 Mg Tablet 1 Tab PO BID Ibuprofen 600 Mg Tablet 600 Mg PO PRN Q6HRS PRN take with food or milk Lisinopril 5 Mg Tablet 5 Mg PO DAILY Furosemide 40 Mg Tablet 20 Mg PO DAILY Carvedilol 6.25 Mg Tablet 3.125 Mg PO BIDWMEALS Aspirin Ec (Aspirin) 81 Mg Tablet.dr 81 Mg PO DAILYWBKFT Vitals/I & O Vital Sign - Last 24 Hours 03/24/18 03/24/18 03/24/18 03/24/18 14:00 15:00 15:30 19:26 Temp 97.9 97.9 Pulse 86 86 86 79 Resp 18 B/P (MAP) 118/54 (75) 120/68 (85) 115/70 (85) 100/72 (81) Pulse Ox 100 100 100 100 O2 Delivery Nasal Cannula Nasal Cannula Room Air Room Air O2 Flow Rate 4.0 4.0 03/24/18 03/24/18 03/25/18 03/25/18 19:45 22:30 06:18 08:30 Temp 98.1 98.1 98.1 98.1 Pulse 75 78 Resp 18 18 B/P (MAP) 128/70 (89) 109/63 (78) Pulse Ox 100 100 O2 Delivery Nasal Cannula Nasal Cannula Nasal Cannula Nasal Cannula O2 Flow Rate 4.0 4.0 4.0 4.0 Intake and Output 03/24/18 03/24/18 03/25/18 15:00 23:00 07:00 Intake Total 900 ml 570 ml 734 ml Output Total 1330 ml 2100 ml Balance -430 ml 570 ml -1366 ml QING TIRADO MD Mar 25, 2018 13:29
[2018-03-25] MEDS ORDERED: LABE100T5 PO ×2 (16:37→16:38)
[2018-03-25 16:50] VITALS: BP 110/68
== END 2018-03-25 16:40 | disposition home or self-care (01) | DRG 781 ==
LOC: 3 SO LND 10:03 → 2 NORTH 14:03 → OBSVTOIN 14:50 → 1 WEST ICU 14:51 → 3 NORTH 03-24 15:30
PROVIDERS: ADMIT Obstetrics & Gynecology; ATTEND Obstetrics & Gynecology
DX: O99.412 Diseases of the circulatory system complicating pregnancy, second trimester (principal); J81.0 Acute pulmonary edema; I42.0 Dilated cardiomyopathy; O99.282 Endocrine, nutritional and metabolic diseases complicating pregnancy, second trimester; O10.112 Pre-existing hypertensive heart disease complicating pregnancy, second trimester; I50.9 Heart failure, unspecified; I34.0 Nonrheumatic mitral (valve) insufficiency; I11.0 Hypertensive heart disease with heart failure; Z3A.23 23 weeks gestation of pregnancy; Z82.49 Family history of ischemic heart disease and other diseases of the circulatory system; Z88.8 Allergy status to other drugs, medicaments and biological substances
CPT/HCPCS: 36415; 36600; 76805; 80048; 80053; 80307; 81001; 82533; 82805; 82962; 83735; 84443; 84480; 84481; 85025; 85027; 85610; 85651; 85730; 86703; 86762; 86850; 86900; 86901; 87340; 87641; 93005; 93306; A4314; G0378; G0379; J1250; J1940; J2405; J3475; J3480; J7120; G0479

== ENCOUNTER 2018-09-05 09:45 | Emergency (ER) | payer SELFPAY ==
[~2018-09-05] VITALS: Ht 175.3 cm; Wt 72.6 kg
[~2018-09-05 09:45] MED LIST changes: +CARV6.2511 PO; -CARV6.252 PO; +LABE100T5 PO
[2018-09-05 10:29] VITALS: BP 130/90
[2018-09-05 11:07] LABS: INFLUENZA A PATIENT NEGATIVE (NEGATIVE); INFLUENZA B PATIENT NEGATIVE (NEGATIVE)
--- NOTE | 2018-09-05 11:25 | RAD ---
EXAM: Chest, 2 views. HISTORY: Cough. COMPARISON: 04/04/2017 FINDINGS: 2 views of the chest are obtained. There is cardia megaly. There is a right and possibly left lower lobe interstitial infiltrate. There is no pleural effusion or pneumothorax. IMPRESSION: 1. Right and possibly left lower lobe interstitial infiltrate. No consolidation is seen. 2. Cardiomegaly. Electronically signed by: Kym Ojeda MD (09/05/2018 11:22 AM) [id number]
[2018-09-05 11:51] LABS: BILIRUBIN,URINE SMALL (NEG); CLARITY,URINE CLEAR; COLOR,URINE AMBER; NITRITE,URINE NEGATIVE (NEG); PH,URINE 6.5; PROTEIN,URINE 100 mg/dL (NEG-TRACE)
[2018-09-05 12:10] LABS: BACTERIA,URINE FEW /HPF (0-FEW); RBC,URINE OCC /HPF (0-2); SQUAMOUS EPITHELIAL CELL,UR MOD /LPF
[2018-09-05] MEDS ORDERED: DOXY100T9 PO (12:10)
[2018-09-05] MEDS ORDERED: VENTOLIN HFA18 GM INH (12:10)
[2018-09-05] MEDS ORDERED: BENZ100C PO (12:10)
--- NOTE | 2018-09-05 12:10 | PHYS DOC ---
Past Medical History Past Medical History: CHF, Hypertension, Other Additional Past Medical Histor: cardiomyopathy Past Surgical History: Other Additional Past Surgical Histo: cardiac cath Alcohol Use: None Drug Use: Marijuana Adult General Chief Complaint Chief Complaint: FLU SYMPTOM HPI HPI Patient is a 38 year old female with history of CHF, hypertension, who presents to the ED complaining of a productive cough, chills, fevers, body aches for 2 weeks. Review of Systems Review of Systems Constitutional: Reports fevers and body aches Eyes: Denies change in visual acuity, redness, or eye pain [] HENT: Denies nasal congestion or sore throat [] Respiratory: Reports cough, denies shortness of breath [] Cardiovascular: No additional information not addressed in HPI [] GI: Denies abdominal pain, nausea, vomiting, bloody stools or diarrhea [] : Denies dysuria or hematuria [] Musculoskeletal: Denies back pain or joint pain [] Integument: Denies rash or skin lesions [] Neurologic: Denies headache, focal weakness or sensory changes [] All other systems were reviewed and found to be within normal limits, except as documented in this note. Allergies Allergies Allergies Coded Allergies Type Severity Reaction Last Updated Verified lisinopril Allergy Severe Anaphylaxis 03/22/18 Yes tramadol Allergy Severe Anaphylaxis 11/17/15 Yes Physical Exam Physical Exam Constitutional: Well developed, well nourished, no acute distress, non-toxic appearance. [] HENT: Normocephalic, atraumatic, bilateral external ears normal, oropharynx moist, no oral exudates, nose normal. [] Eyes: PERRLA, EOMI, conjunctiva normal, no discharge. [] Neck: Normal range of motion, no tenderness, supple, no stridor. [] Cardiovascular:Heart rate regular rhythm, no murmur [] Lungs & Thorax: Diminished breath sounds to posterior lung bases Abdomen: Bowel sounds normal, soft, no tenderness, no masses, no pulsatile masses. [] Skin: Warm, dry, no erythema, no rash. [] Back: No tenderness, no CVA tenderness. [] Extremities: No tenderness, no cyanosis, no clubbing, ROM intact, no edema. [] Neurologic: Alert and oriented X 3, normal motor function, normal sensory function, no focal deficits noted. [] Psychologic: Affect normal, judgement normal, mood normal. [] Current Patient Data Vital Signs Vital Signs Date Time Temp Pulse Resp B/P (MAP) Pulse Ox O2 Delivery O2 Flow Rate FiO2 09/05/18 10:29 98.4 94 18 130/90 (103) 98 Room Air 98.4 Lab Values Laboratory Tests Test 09/05/18 10:20 Influenza Type A Antigen Negative (NEGATIVE) Influenza Type B Antigen Negative (NEGATIVE) EKG EKG [] Radiology/Procedures Radiology/Procedures []PROCEDURE: CHEST PA & LATERAL EXAM: Chest, 2 views. HISTORY: Cough. COMPARISON: 04/04/2017 FINDINGS: 2 views of the chest are obtained. There is cardia megaly. There is a right and possibly left lower lobe interstitial infiltrate. There is no pleural effusion or pneumothorax. IMPRESSION: 1. Right and possibly left lower lobe interstitial infiltrate. No consolidation is seen. 2. Cardiomegaly. Electronically signed by: Kym Ojeda MD (09/05/2018 11:22 AM) [id number] DICTATED and SIGNED BY: KYM OJEDA MD DATE: 09/05/18 112 Course & Med Decision Making Course & Med Decision Making Pertinent Labs and Imaging studies reviewed. (See chart for details) This is a 38-year-old female patient presenting to the ED today with cough, fever, body aches, chills, symptoms for 2 weeks. Patient is afebrile in the ED, negative for influenza A or B. Chest x-ray interpreted by radiologist was noted for bilateral lower lobe infiltrates. Patient was discharged on doxycycline. Follow-up with primary care doctor in the course of this week or next week. Provided return precautions and discharged in stable condition. Dragon Disclaimer Dragon Disclaimer This electronic medical record was generated, in whole or in part, using a voice recognition dictation system. Departure Departure Impression: Primary Impression: Community acquired pneumonia Additional Impression: Fever Disposition: 01 HOME, SELF-CARE Condition: STABLE Referrals: NO PCP (PCP) Follow-up with your doctor in the next 3-7 days Patient Instructions: Fever, Adult, [id number], Pneumonia, Adult, Easy-to- Read Additional Instructions: You have pneumonia, we put you on antibiotics, ensure you complete them. Follow- up with your primary care doctor in the course of this week or next week. Come back to the ED at any point symptoms worsen. Scripts Albuterol Sulfate (VENTOLIN HFA INHALER) 18 Gm Hfa.aer.ad 2 PUFF INH Q4HRS for FOR ASTHMA, #1 INHALER 0 Refills Prov: KEVIN SPANGLER APRN 09/05/18 Benzonatate (TESSALON PERLE) 100 Mg Capsule 1 CAP PO TID, #30 CAP Prov: KEVIN SPANGLER APRN 09/05/18 Doxycycline Hyclate (DOXYCYCLINE HYCLATE) 100 Mg Tablet.dr 1 TAB PO BID, #14 TAB Prov: KEVIN SPANGLER APRN 09/05/18 Problem Qualifiers Primary Impression: Community acquired pneumonia Laterality: right Lung location: lower lobe of lung Qualified Codes: J18.1 - Lobar pneumonia, unspecified organism Additional Impression: Fever Fever type: unspecified Qualified Codes: R50.9 - Fever, unspecified KEVIN SPANGLER APRN Sep 05, 2018 12:10
[2018-09-08] MEDS ORDERED: lasix (04:25)
[2018-09-08] MEDS ORDERED: CARV6.25 PO (04:25)
== END 2018-09-05 12:37 | disposition home or self-care (01) ==
LOC: ER 09:45
DX: J18.1 Lobar pneumonia, unspecified organism (principal); R50.9 Fever, unspecified; I11.0 Hypertensive heart disease with heart failure; I50.9 Heart failure, unspecified; Z88.5 Allergy status to narcotic agent; Z88.8 Allergy status to other drugs, medicaments and biological substances
CPT/HCPCS: 71046; 81001; 87086; 87804; 99284

== ENCOUNTER 2018-10-04 05:58 | Inpatient (IN) | payer OTHER, SELFPAY ==
[~2018-10-04] VITALS: Ht 175.3 cm; Wt 54.4 kg
[~2018-10-04 05:58] MED LIST changes: +BENZ100C PO; +CARV3.12 PO; +CARV6.25 PO; +DOXY100T9 PO; +FURO-68 PO; +POTA20TA82 PO; +VENTOLIN HFA18 GM INH; +lasix
--- NOTE | 2018-10-04 06:23 | PHYS DOC ---
Past Medical History Past Medical History: CHF, Hypertension, Other Additional Past Medical Histor: cardiomyopathy Past Surgical History: Other Additional Past Surgical Histo: cardiac cath Alcohol Use: None Drug Use: Marijuana Adult General Chief Complaint Chief Complaint: SHORTNESS OF BREATH HPI HPI Patient is a 38-year-old female with a past history of congestive heart failure secondary to cardiomyopathy, hospitalized here about a month ago, for a CHF exacerbation whereby she underwent cardiac catheterization during her hospital stay, relevant notes have been reviewed, who presents to the emergency department for evaluation of increasing shortness of breath, and a cough productive of pinkish, sometimes blood-tinged sputum. She also reports some generalized "tightness" in her chest. She is exhibiting tachycardia and an oxygen saturation of 89% on room air, improved to 100% with 2 L of nasal cannula. She reports orthopnea. She also has edema for lower extremities. She has been compliant with her medications which include aspirin, carvedilol, and furosemide. Exertion and laying flat worsen her symptoms. There are no alleviating factors to her symptoms. Review of Systems Review of Systems Constitutional: Denies fever or chills [] Eyes: Denies change in visual acuity, redness, or eye pain [] HENT: Denies nasal congestion or sore throat [] Respiratory: Reports cough and shortness of breath [] Cardiovascular: No additional information not addressed in HPI [] GI: Denies abdominal pain, nausea, vomiting, bloody stools or diarrhea [] : Denies dysuria or hematuria [] Musculoskeletal: Denies back pain or joint pain [] Integument: Denies rash or skin lesions [] Neurologic: Denies headache, focal weakness or sensory changes [] Endocrine: Denies polyuria or polydipsia [] All other systems were reviewed and found to be within normal limits, except as documented in this note. Current Medications Current Medications Current Medications Medications (Trade) Dose Ordered Sig/Yandy Start Time Stop Time Status Last Admin Dose Admin Aspirin (Children'S Aspirin) 324 mg 1X ONCE 10/04/18 06:30 10/04/18 06:31 DC 10/04/18 07:03 324 MG Furosemide (Lasix) 60 mg 1X ONCE 10/04/18 06:30 10/04/18 06:31 DC 10/04/18 07:03 60 MG Morphine Sulfate (Morphine Sulfate) 2 mg 1X ONCE 10/04/18 06:30 10/04/18 06:31 DC 10/04/18 07:02 2 MG Nitroglycerin/ Dextrose 250 ml @ 0 mls/hr 1X ONCE 10/04/18 06:30 10/04/18 06:31 DC 10/04/18 07:05 1.5 MLS/HR Allergies Allergies Allergies Coded Allergies Type Severity Reaction Last Updated Verified lisinopril Allergy Severe Anaphylaxis 03/22/18 Yes tramadol Allergy Severe Anaphylaxis 11/17/15 Yes Physical Exam Physical Exam PHYSICAL EXAM: CONSTITUTIONAL: Well developed, well nourished HEAD: normocephalic, atraumatic EENT: PERRL, EOMI. Conjunctivae normal color, sclerae non-icteric; moist mucous membranes. NECK: Supple, non-tender; no meningismus. LUNGS: There are rales in the lung bases bilaterally, upper lobes are relatively clear HEART: Regular rate and rhythm, no audible murmur CHEST: No deformity; non-tender ABDOMEN: The abdomen is soft, and non-tender, no masses or bruits. EXTREM: Normal ROM; no deformity, no calf tenderness. Normal pulses palpable in all extremities. There is 1+ bilateral pitting pedal edema. SKIN: No rash; no diaphoresis NEURO: Alert; normal speech and cognition; CN's grossly intact; strength grossly intact without focal deficit. BACK: No CVA TTP. Current Patient Data Vital Signs Vital Signs Date Time Temp Pulse Resp B/P (MAP) Pulse Ox O2 Delivery O2 Flow Rate FiO2 10/04/18 07:02 16 10/04/18 06:00 98.4 110 132/89 (103) 93 Room Air 98.4 Lab Values Laboratory Tests Test 10/04/18 06:25 White Blood Count 6.4 x10^3/uL (4.0-11.0) Red Blood Count 3.71 x10^6/uL (3.50-5.40) Hemoglobin 8.9 g/dL (12.0-15.5) L Hematocrit 28.4 % (36.0-47.0) L Mean Corpuscular Volume 76 fL (79-100) L Mean Corpuscular Hemoglobin 24 pg (25-35) L Mean Corpuscular Hemoglobin Concent 31 g/dL (31-37) Red Cell Distribution Width 17.0 % (11.5-14.5) H Platelet Count 361 x10^3/uL (140-400) Neutrophils (%) (Auto) 65 % (31-73) Lymphocytes (%) (Auto) 22 % (24-48) L Monocytes (%) (Auto) 10 % (0-9) H Eosinophils (%) (Auto) 3 % (0-3) Basophils (%) (Auto) 1 % (0-3) Neutrophils # (Auto) 4.1 x10^3uL (1.8-7.7) Lymphocytes # (Auto) 1.4 x10^3/uL (1.0-4.8) Monocytes # (Auto) 0.6 x10^3/uL (0.0-1.1) Eosinophils # (Auto) 0.2 x10^3/uL (0.0-0.7) Basophils # (Auto) 0.1 x10^3/uL (0.0-0.2) Sodium Level 141 mmol/L (136-145) Potassium Level 4.1 mmol/L (3.5-5.1) Chloride Level 106 mmol/L (98-107) Carbon Dioxide Level 23 mmol/L (21-32) Anion Gap 12 (6-14) Blood Urea Nitrogen 16 mg/dL (7-20) Creatinine 0.8 mg/dL (0.6-1.0) Estimated GFR (Cockcroft-Gault) 97.7 BUN/Creatinine Ratio 20 (6-20) Glucose Level 101 mg/dL (70-99) H Lactic Acid Level 0.9 mmol/L (0.4-2.0) Calcium Level 8.3 mg/dL (8.5-10.1) L Total Bilirubin 0.4 mg/dL (0.2-1.0) Aspartate Amino Transferase (AST) 31 U/L (15-37) Alanine Aminotransferase (ALT) 27 U/L (14-59) Alkaline Phosphatase 65 U/L (46-116) Troponin I Quantitative 1.598 ng/mL (0.000-0.055) PM-Wtc-A-Type Natriuretic Peptide 8932 pg/mL (0-124) H Total Protein 6.6 g/dL (6.4-8.2) Albumin 2.8 g/dL (3.4-5.0) L Albumin/Globulin Ratio 0.7 (1.0-1.7) L Laboratory Tests 10/04/18 06:25 Laboratory Tests 10/04/18 06:25 EKG EKG [Sinus tachycardia at a rate of 112 beats for minute, normal axis, normal intervals, lateral T wave inversion, not significantly changed compared to patient's prior EKG.] Radiology/Procedures Radiology/Procedures [PROCEDURE: PORTABLE CHEST 1V Portable chest, 10/04/2018: HISTORY: Shortness of breath Comparison is made to a study from 09/08/2018. The heart is moderately enlarged. There are ongoing or recurrent pulmonary infiltrates, less extensive than on the previous study. There is dominant involvement of the lung bases. The underlying pulmonary vascularity is prominent. There may be pleural fluid contributing to the basilar opacities. IMPRESSION: Cardiomegaly with ongoing or recurrent bilateral pulmonary infiltrates most compatible with mild pulmonary edema.] Course & Med Decision Making Course & Med Decision Making Pertinent Labs and Imaging studies reviewed. (See chart for details) [8:30 AM: The patient's condition remains stable. I spoke with the hospitalist , who accepted the patient to the hospital for further evaluation and treatment. ] The patient's troponin is actually down compared to her recent values. Dragon Disclaimer Dragon Disclaimer This electronic medical record was generated, in whole or in part, using a voice recognition dictation system. Departure Departure Impression: Primary Impression: CHF (congestive heart failure) Additional Impression: Cardiomyopathy Disposition: ADMITTED INPATIENT Admitting Physician: Melanie Jorge Condition: STABLE Referrals: NO PCP (PCP) Problem Qualifiers SRAVANTHI JACOB MD Oct 04, 2018 06:23
[2018-10-04] MEDS ORDERED: ASPIRIN CHEWABLE 81 MG TABLET. PO ONE (06:30)
[2018-10-04] MEDS ORDERED: MORPHINE SULFATE 4 MG/ML VIAL. IV ONE (06:30)
[2018-10-04] MEDS ORDERED: NITROGLYCERIN PREMIX 250 ML IV ONE (06:30)
[2018-10-04] MEDS ORDERED: FUROSEMIDE 40 MG/4 ML VIAL. IVP ONE (06:30)
[2018-10-04 06:44] LABS: BASO # 0.1 x10^3/uL (0.0-0.2); BASO % 1 % (0-3); EOS # 0.2 x10^3/uL (0.0-0.7); EOS % 3 % (0-3); HEMATOCRIT 28.4 % (36.0-47.0); HEMOGLOBIN 8.9 g/dL (12.0-15.5); LYMPH # 1.4 x10^3/uL (1.0-4.8); LYMPH % 22 % (24-48); MEAN CORPUSCULAR HEMOGLOBIN 24 pg (25-35); MEAN CORPUSCULAR HGB CONC 31 g/dL (31-37); MEAN CORPUSCULAR VOLUME 76 fL (79-100); MONO # 0.6 x10^3/uL (0.0-1.1); MONO % 10 % (0-9); NEUT # 4.1 x10^3uL (1.8-7.7); NEUT % 65 % (31-73); PLATELET COUNT 361 x10^3/uL (140-400); RED BLOOD COUNT 3.71 x10^6/uL (3.50-5.40); WHITE BLOOD COUNT 6.4 x10^3/uL (4.0-11.0)
[2018-10-04 07:00] LABS: CALCIUM 8.3 mg/dL (8.5-10.1); CREATININE 0.8 mg/dL (0.6-1.0); GFR 97.7; POTASSIUM 4.1 mmol/L (3.5-5.1)
[2018-10-04 07:04] LABS: ALBUMIN 2.8 g/dL (3.4-5.0); ALBUMIN/GLOBULIN RATIO 0.7 (1.0-1.7); TOTAL BILIRUBIN 0.4 mg/dL (0.2-1.0); TOTAL PROTEIN 6.6 g/dL (6.4-8.2)
--- NOTE | 2018-10-04 07:39 | RAD ---
Portable chest, 10/04/2018: HISTORY: Shortness of breath Comparison is made to a study from 09/08/2018. The heart is moderately enlarged. There are ongoing or recurrent pulmonary infiltrates, less extensive than on the previous study. There is dominant involvement of the lung bases. The underlying pulmonary vascularity is prominent. There may be pleural fluid contributing to the basilar opacities. IMPRESSION: Cardiomegaly with ongoing or recurrent bilateral pulmonary infiltrates most compatible with mild pulmonary edema. Electronically signed by: Chava Mo MD (10/04/2018 7:36 AM) [facility]
--- NOTE | 2018-10-04 08:19 | EKG ---
[facility] [address] [place] [address] Test Date: 2018-10-04 Test Time: 06:07:52 Pat Name: JAUN NELSON Department: Room: Gender: F Chip Frier: : 1980 Requested By: SRAVANTHI JACOB Order Number: [id number] Reading MD: Deangelo Banerjee MD Measurements Intervals [place] Rate: 112 P: 50 DC: 150 QRS: 27 QRSD: 82 T: 166 QT: 318 QTc: 436 Interpretive Statements SINUS TACHYCARDIA LVH NON-SPECIFIC ST/T CHANGES Electronically Signed On 10-12-2018 9:40:16 CDT by Deangelo Banerjee MD
[2018-10-04] MEDS ORDERED: guaiFENesin DM 200MG/20MG 10 ML SYRUP PO PRN (09:30)
[2018-10-04 09:34] VITALS: BP 121/89
--- NOTE | 2018-10-04 09:36 | PDOC1 ---
History and Physical Date of Admission Date of Admission DATE: 10/04/18 TIME: 09:31 Identification/Chief Complaint Chief Complaint SOA, cough, hemoptysis Source Source: Caregiver, Chart review, Patient History of Present Illness History of Present Illness 38-year-old female, 3 months , history of peripartum or cardiomyopathy, she delivered here [facility], sees Dr. Kaye of cardiology. Maintained on Coreg twice a day and Lasix 40 once a day with potassium supplements and aspirin 81. 3 day history of chest pain, SOA, edema, maybe lightheaded. Found to be in congestive heart failure today. Got Lasix at ER. The rest of the labs otherwise okay and BP is okay. She is tachypneic on short phrases. Agreeable to be admitted, cards consulted, to diurese etc. She shows me a bucket of hemoptysis, denies any sick contacts or sick kids. SHe has 5 kids, Eldest is 14-year-old, youngest 3 months. She started to have cardiomyopathy with the fourth kid who is now 3 years old. She did have subjective chills SOA and cough, can check for flu. History of pneumonia in the past she relays. COrrection: troponin 1 with an elevated BNP Chest x-ray: IMPRESSION: Cardiomegaly with ongoing or recurrent bilateral pulmonary infiltrates most compatible with mild pulmonary edema. Past Medical History Cardiovascular: CHF, HTN Pulmonary: No pertinent hx, Pulmonary embolus CENTRAL NERVOUS SYSTEM: Other GI: Constipation Heme/Onc: No pertinent hx Hepatobiliary: No pertinent hx Psych: No pertinent hx Musculoskeletal: Other Rheumatologic: No pertinent hx Infectious disease: No pertinent hx Renal/: Other Endocrine: Other Past Surgical History Past Surgical History: Other Family History Family History: Coronary Artery Disease Social History Smoke: No ALCOHOL: none Drugs: Marijuana Current Problem List Problem List Problems Medical Problems: (1) Cardiomyopathy Status: Acute Current Medications Current Medications Current Medications Aspirin (Children'S Aspirin) 324 mg 1X ONCE PO Last administered on 10/04/18at 07:03; Start 10/04/18 at 06:30; Stop 10/04/18 at 06:31; Status DC Morphine Sulfate (Morphine Sulfate) 2 mg 1X ONCE IV Last administered on at 07:02; Start 10/04/18 at 06:30; Stop 10/04/18 at 06:31; Status DC Furosemide (Lasix) 60 mg 1X ONCE IVP Last administered on 10/04/18at 07:03; Start 10/04/18 at 06:30; Stop 10/04/18 at 06:31; Status DC Nitroglycerin/ Dextrose 250 ml @ 0 mls/hr 1X ONCE IV Last administered on 10/04at 07:05; Start 10/04/18 at 06:30; Stop 10/04/18 at 06:31; Status DC Aspirin (Ecotrin) 81 mg DAILYWBKFT PO ; Start 10/05/18 at 08:00; Status UNV Carvedilol (Coreg) 3.125 mg BIDWMEALS PO ; Start 10/04/18 at 17:00; Status UNV Non-Formulary Medication (Albuterol Sulfate (Ventolin Hfa Inhaler)) 2 puff Q4HRS INH ; Start 10/04/18 at 12:00; Status UNV Non-Formulary Medication (Benzonatate (Tessalon Perle)) 1 cap TID PO ; Start at 14:00; Status UNV Non-Formulary Medication (Pnv Cmb#95/ Ferrous Fumarate/ Fa ( Tablet)) 1 tab DAILY PO ; Start 10/05/18 at 09:00; Status UNV Non-Formulary Medication (Potassium Chloride ) 20 meq DAILY PO ; Start 10/05/18 at 09:00; Status UNV Active Scripts Active Ventolin Hfa Inhaler (Albuterol Sulfate) 18 Gm Hfa.aer.ad 2 Puff INH Q4HRS Tessalon Perle (Benzonatate) 100 Mg Capsule 1 Cap PO TID Doxycycline Hyclate 100 Mg Tablet. 1 Tab PO BID Tablet (Pnv Cmb#95/Ferrous Fumarate/Fa) 1 Each Tablet 1 Tab PO DAILY Aspirin Ec (Aspirin) 81 Mg Tablet. 81 Mg PO DAILYWBKFT Reported Lasix (Furosemide) 40 Mg Tablet 1 Tab PO DAILY Potassium Chloride 20 Meq Tablet.er 20 Meq PO DAILY Coreg (Carvedilol) 3.125 Mg Tablet 3.125 Mg PO BIDWMEALS Labetalol Hcl 100 Mg Tablet 1 Tab PO BID Allergies Allergies: Coded Allergies: lisinopril (Verified Allergy, Severe, Anaphylaxis, 03/22/18) tramadol (Verified Allergy, Severe, Anaphylaxis, 11/17/15) ROS Review of System As per history of present illness, the rest of ROS 14 point negative Physical Exam General: mild distress HEENT: Atraumatic, PERRLA Lungs: Normal air movement, Other (crackles both bases , symmetric chest expansion no wheezing) Heart: S1S2, no thrills, no rubs, other (sinus tachycardia) Cardiovascular: S1, S2 Breasts: Normal, Rt breast nml w/o mass, Lt breast nml w/o mass, Nipples normal Abdomen: Normal bowel sounds, Soft, No tenderness, No hepatosplenomegaly, No masses Rectal Exam: not examined PELVIC: Nml ext genitalia Extremities: No clubbing, No cyanosis, No edema, Normal pulses, No tenderness/ swelling Skin: No rashes, No breakdown, No significant lesion Neuro: Normal gait, Normal speech, Strength at 5/5 X4 ext, Normal tone, Sensation intact, Cranial nerves 3-12 NL, Reflexes 2+ Psych/Mental Status: Mental status NL, Mood NL Vitals Vitals Vital Signs Date Time Temp Pulse Resp B/P (MAP) Pulse Ox O2 Delivery O2 Flow Rate FiO2 10/04/18 08:30 88 126/88 (101) 96 Nasal Cannula 2.0 10/04/18 07:02 16 10/04/18 06:00 98.4 98.4 Labs Labs Laboratory Tests Test 10/04/18 06:25 White Blood Count 6.4 x10^3/uL (4.0-11.0) Red Blood Count 3.71 x10^6/uL (3.50-5.40) Hemoglobin 8.9 g/dL (12.0-15.5) Hematocrit 28.4 % (36.0-47.0) Mean Corpuscular Volume 76 fL (79-100) Mean Corpuscular Hemoglobin 24 pg (25-35) Mean Corpuscular Hemoglobin Concent 31 g/dL (31-37) Red Cell Distribution Width 17.0 % (11.5-14.5) Platelet Count 361 x10^3/uL (140-400) Neutrophils (%) (Auto) 65 % (31-73) Lymphocytes (%) (Auto) 22 % (24-48) Monocytes (%) (Auto) 10 % (0-9) Eosinophils (%) (Auto) 3 % (0-3) Basophils (%) (Auto) 1 % (0-3) Neutrophils # (Auto) 4.1 x10^3uL (1.8-7.7) Lymphocytes # (Auto) 1.4 x10^3/uL (1.0-4.8) Monocytes # (Auto) 0.6 x10^3/uL (0.0-1.1) Eosinophils # (Auto) 0.2 x10^3/uL (0.0-0.7) Basophils # (Auto) 0.1 x10^3/uL (0.0-0.2) Sodium Level 141 mmol/L (136-145) Potassium Level 4.1 mmol/L (3.5-5.1) Chloride Level 106 mmol/L (98-107) Carbon Dioxide Level 23 mmol/L (21-32) Anion Gap 12 (6-14) Blood Urea Nitrogen 16 mg/dL (7-20) Creatinine 0.8 mg/dL (0.6-1.0) Estimated GFR (Cockcroft-Gault) 97.7 BUN/Creatinine Ratio 20 (6-20) Glucose Level 101 mg/dL (70-99) Lactic Acid Level 0.9 mmol/L (0.4-2.0) Calcium Level 8.3 mg/dL (8.5-10.1) Total Bilirubin 0.4 mg/dL (0.2-1.0) Aspartate Amino Transf (AST/SGOT) 31 U/L (15-37) Alanine Aminotransferase (ALT/SGPT) 27 U/L (14-59) Alkaline Phosphatase 65 U/L (46-116) Troponin I Quantitative 1.598 ng/mL (0.000-0.055) FM-Fwa-U-Type Natriuretic Peptide 8932 pg/mL (0-124) Total Protein 6.6 g/dL (6.4-8.2) Albumin 2.8 g/dL (3.4-5.0) Albumin/Globulin Ratio 0.7 (1.0-1.7) Laboratory Tests Test 10/04/18 06:25 White Blood Count 6.4 x10^3/uL (4.0-11.0) Red Blood Count 3.71 x10^6/uL (3.50-5.40) Hemoglobin 8.9 g/dL (12.0-15.5) Hematocrit 28.4 % (36.0-47.0) Mean Corpuscular Volume 76 fL (79-100) Mean Corpuscular Hemoglobin 24 pg (25-35) Mean Corpuscular Hemoglobin Concent 31 g/dL (31-37) Red Cell Distribution Width 17.0 % (11.5-14.5) Platelet Count 361 x10^3/uL (140-400) Neutrophils (%) (Auto) 65 % (31-73) Lymphocytes (%) (Auto) 22 % (24-48) Monocytes (%) (Auto) 10 % (0-9) Eosinophils (%) (Auto) 3 % (0-3) Basophils (%) (Auto) 1 % (0-3) Neutrophils # (Auto) 4.1 x10^3uL (1.8-7.7) Lymphocytes # (Auto) 1.4 x10^3/uL (1.0-4.8) Monocytes # (Auto) 0.6 x10^3/uL (0.0-1.1) Eosinophils # (Auto) 0.2 x10^3/uL (0.0-0.7) Basophils # (Auto) 0.1 x10^3/uL (0.0-0.2) Sodium Level 141 mmol/L (136-145) Potassium Level 4.1 mmol/L (3.5-5.1) Chloride Level 106 mmol/L (98-107) Carbon Dioxide Level 23 mmol/L (21-32) Anion Gap 12 (6-14) Blood Urea Nitrogen 16 mg/dL (7-20) Creatinine 0.8 mg/dL (0.6-1.0) Estimated GFR (Cockcroft-Gault) 97.7 BUN/Creatinine Ratio 20 (6-20) Glucose Level 101 mg/dL (70-99) Lactic Acid Level 0.9 mmol/L (0.4-2.0) Calcium Level 8.3 mg/dL (8.5-10.1) Total Bilirubin 0.4 mg/dL (0.2-1.0) Aspartate Amino Transf (AST/SGOT) 31 U/L (15-37) Alanine Aminotransferase (ALT/SGPT) 27 U/L (14-59) Alkaline Phosphatase 65 U/L (46-116) Troponin I Quantitative 1.598 ng/mL (0.000-0.055) CA-Eag-N-Type Natriuretic Peptide 8932 pg/mL (0-124) Total Protein 6.6 g/dL (6.4-8.2) Albumin 2.8 g/dL (3.4-5.0) Albumin/Globulin Ratio 0.7 (1.0-1.7) VTE Prophylaxis Ordered VTE Prophylaxis Devices: Yes VTE Pharmacological Prophylaxi: Yes Assessment/Plan Assessment/Plan CHF exacerbation History of peripartum or cardiomyopathy Hypertension PLAN: Admit cardiac floor, diurese Lasix 40 IV daily until cardiology Rounds Cards consult I have reconciled home meds E lites since on IV diuresis Continue potassium supplements Cardiac diet I did recommend her to have no more kids Seen at ER, agreeable with my plan of care MADISON LIM MD Oct 04, 2018 09:36
[2018-10-04] MEDS ORDERED: CARVEDILOL 3.125 MG TABLET. PO SCH (10:00)
[2018-10-04] MEDS: ASPIRIN ENTERIC COATED 81 MG TABLET.DR. PO SCH (10:00)
[2018-10-04] MEDS: FUROSEMIDE 40 MG/4 ML VIAL. IVP SCH (10:00)
[2018-10-04] MEDS: MORPHINE SULFATE 2 MG/ML VIAL. IV PRN ×2 (10:08→19:37)
[2018-10-04 10:18] VITALS: BP 114/77
[2018-10-04 11:07] LABS: INFLUENZA A PATIENT NEGATIVE (NEGATIVE); INFLUENZA B PATIENT NEGATIVE (NEGATIVE)
[2018-10-04] MEDS ORDERED: NON FORMULARY ITEM (Albuterol Sulfate (Ventolin Hfa Inhaler) 2 PUFF) INH SCH (12:00)
[2018-10-04] MEDS: ALBUTEROL SULFATE 2.5 MG/3 ML NEBU. NEB SCH ×4 (12:16→22:54)
[2018-10-04] MEDS: POTASSIUM CHLORIDE 20 MEQ TABLET.ER. PO SCH (12:58)
[2018-10-04] MEDS: BENZONATATE 100 MG CAPSULE. PO SCH ×3 (12:58→20:37)
[2018-10-04] MEDS: PRENATAL MULTIVITAMIN TABLET. PO SCH (12:58)
[2018-10-04 14:47] VITALS: BP 126/89
--- NOTE | 2018-10-04 15:38 | PDOC2 ---
CRYS DING ACCESS SERVICES REPRESENTATIVE 10/04/18 1538: CARDIAC CONSULT DATE OF CONSULT Date of Consult DATE: 10/04/18 TIME: 15:36 REASON FOR CONSULT Reason for Consult: CHF HISTORY OF PRESENT ILLNESS HISTORY OF PRESENT ILLNESS Ms Hastings is a 38 year old female with history of post cardiomyopathy. 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 She was started on medical therapy and discharged on Sep 09. She reports weight gain, abdominal bloating and increasing dyspnea since that time. She has 4 pillow orthopnea. She reports compliance with low sodium diet and medications. PAST MEDICAL HISTORY Past Medical History Cardiovascular: CHF, HTN (gestational), NICM Pulmonary: No pertinent hx, Pulmonary embolus (?) CENTRAL NERVOUS SYSTEM: Other (No pertinent history) GI: Constipation Heme/Onc: anemia Hepatobiliary: No pertinent hx Psych: No pertinent hx Musculoskeletal: Other (denies) Rheumatologic: No pertinent hx Infectious disease: No pertinent hx ENT: No pertinent hx Renal/: Other (nephrolithiasis) Endocrine: Other (?possible thyroid disease) Dermatology: No pertinent hx PAST SURGICAL HISTORY Past Surgical History [facility] 06/2016, cervical biopsy FAMILY HISTORY Family History Coronary Artery Disease (father) SOCIAL HISTORY Social History Smoke: 1 pack per day (>10 yrs) ALCOHOL: none Drugs: no further use of Marijuana Lives: with Family CURRENT MEDICATIONS CURRENT MEDICATIONS Current Medications Medications (Trade) Dose Ordered Sig/Yandy Route PRN Reason Start Time Stop Time Status Last Admin Dose Admin Aspirin (Children'S Aspirin) 324 mg 1X ONCE PO 10/04/18 06:30 10/04/18 06:31 DC 10/04/18 07:03 Morphine Sulfate (Morphine Sulfate) 2 mg 1X ONCE IV 10/04/18 06:30 10/04/18 06:31 DC 10/04/18 07:02 Furosemide (Lasix) 60 mg 1X ONCE IVP 10/04/18 06:30 10/04/18 06:31 DC 10/04/18 07:03 Nitroglycerin/ Dextrose 250 ml @ 0 mls/hr 1X ONCE IV 10/04/18 06:30 10/04/18 06:31 DC 10/04/18 07:05 Carvedilol (Coreg) 3.125 mg BIDWMEALS PO 10/04/18 10:00 10/04/18 12:59 Benzonatate (Tessalon Perle) 100 mg [id number] PO 10/04/18 10:00 10/04/18 12:58 Multivit/ Folic Acid/Iron (Multivitamin ) 1 tab DAILY PO 10/04/18 10:00 10/04/18 12:58 Potassium Chloride (Klor-Con) 20 meq DAILYWBKFT PO 10/04/18 10:00 10/04/18 12:58 Guaifenesin (Robitussin Dm) 10 ml PRN Q6HRS PRN PO COUGH 10/04/18 09:30 10/04/18 12:58 Albuterol Sulfate (Ventolin Neb Soln) 2.5 mg Q4HRS NEB 10/04/18 12:00 10/04/18 12:16 Morphine Sulfate (Morphine Sulfate) 2 mg PRN Q2HR PRN IV PAIN 10/04/18 10:00 10/04/18 10:08 ALLERGIES ALLERGIES: Coded Allergies: lisinopril (Verified Allergy, Severe, Anaphylaxis, 03/22/18) tramadol (Verified Allergy, Severe, Anaphylaxis, 10/04/18) Tolerates morphine ROS Review of System as per HPI PHYSICAL EXAM General: Alert, Oriented X3, Cooperative, mild distress HEENT: Atraumatic, EOMI Lungs: Other (bilateral crackles right>left) Heart: Normal S1, Normal S2, Other (no gallops, no obvious murmurs) Abdomen: Normal bowel sounds, Soft, No tenderness Extremities: No cyanosis, Normal pulses, Other (trace edema) Neuro: Normal speech, Strength at 5/5 X4 ext Psych/Mental Status: Mental status NL, Mood NL VITALS VITALS Vital Signs Date Time Temp Pulse Resp B/P (MAP) Pulse Ox O2 Delivery O2 Flow Rate FiO2 10/04/18 14:47 89 18 126/89 (101) 100 Nasal Cannula 2.0 10/04/18 09:34 97.4 97.4 LABS Lab: Laboratory Tests Test 10/04/18 06:25 10/04/18 10:25 10/04/18 12:15 White Blood Count 6.4 x10^3/uL (4.0-11.0) Red Blood Count 3.71 x10^6/uL (3.50-5.40) Hemoglobin 8.9 g/dL (12.0-15.5) Hematocrit 28.4 % (36.0-47.0) Mean Corpuscular Volume 76 fL (79-100) Mean Corpuscular Hemoglobin 24 pg (25-35) Mean Corpuscular Hemoglobin Concent 31 g/dL (31-37) Red Cell Distribution Width 17.0 % (11.5-14.5) Platelet Count 361 x10^3/uL (140-400) Neutrophils (%) (Auto) 65 % (31-73) Lymphocytes (%) (Auto) 22 % (24-48) Monocytes (%) (Auto) 10 % (0-9) Eosinophils (%) (Auto) 3 % (0-3) Basophils (%) (Auto) 1 % (0-3) Neutrophils # (Auto) 4.1 x10^3uL (1.8-7.7) Lymphocytes # (Auto) 1.4 x10^3/uL (1.0-4.8) Monocytes # (Auto) 0.6 x10^3/uL (0.0-1.1) Eosinophils # (Auto) 0.2 x10^3/uL (0.0-0.7) Basophils # (Auto) 0.1 x10^3/uL (0.0-0.2) Sodium Level 141 mmol/L (136-145) Potassium Level 4.1 mmol/L (3.5-5.1) Chloride Level 106 mmol/L (98-107) Carbon Dioxide Level 23 mmol/L (21-32) Anion Gap 12 (6-14) Blood Urea Nitrogen 16 mg/dL (7-20) Creatinine 0.8 mg/dL (0.6-1.0) Estimated GFR (Cockcroft-Gault) 97.7 BUN/Creatinine Ratio 20 (6-20) Glucose Level 101 mg/dL (70-99) Lactic Acid Level 0.9 mmol/L (0.4-2.0) Calcium Level 8.3 mg/dL (8.5-10.1) Total Bilirubin 0.4 mg/dL (0.2-1.0) Aspartate Amino Transf (AST/SGOT) 31 U/L (15-37) Alanine Aminotransferase (ALT/SGPT) 27 U/L (14-59) Alkaline Phosphatase 65 U/L (46-116) Troponin I Quantitative 1.598 ng/mL (0.000-0.055) 1.494 ng/mL (0.000-0.055) FU-Pjg-L-Type Natriuretic Peptide 8932 pg/mL (0-124) Total Protein 6.6 g/dL (6.4-8.2) Albumin 2.8 g/dL (3.4-5.0) Albumin/Globulin Ratio 0.7 (1.0-1.7) Influenza Type A Antigen Negative (NEGATIVE) Influenza Type B Antigen Negative (NEGATIVE) IMAGES IMAGES CXR - IMPRESSION: Cardiomegaly with ongoing or recurrent bilateral pulmonary infiltrates most compatible with mild pulmonary edema. EKG EKG sinus tachy, non specific st abn ECHOCARDIOGRAM ECHOCARDIOGRAM Sep 08, 2018 The Left Ventricle is moderately dilated. The systolic function is severely impaired. The Ejection Fraction is 20-25%. There is global hypokinesis of the left ventricle. There is mild concentric left ventricular hypertrophy. There is no significant aortic valvular stenosis. Doppler and Color Flow revealed trace to mild aortic regurgitation. Doppler and Color-flow revealed moderate eccentric mitral regurgitation. Doppler and Color Flow revealed trace to mild tricuspid regurgitation. HEART CATH HEART CATH Aug 2018 FINDINGS 1. Hemodynamics: Left ventricle end diastolic pressure 24 mmHg. No pullback gradient across the aortic valve. 2. Left ventriculography: Severe left ventricle systolic dysfunction with ejection fraction estimated at 15%. 1+ mitral regurgitation seen. 3. Coronary angiography: a. The left main coronary artery arose from the left sinus of Valsalva, gave rise to the left anterior descending and left circumflex arteries and did not show any significant stenosis. b. The left anterior descending artery did not show any significant stenosis. Myocardial bridging was noted in the distal segment. c. The left circumflex artery did not show any significant stenosis. d. The right coronary artery was a dominant vessel arising from the right sinus of Valsalva that did not show any significant stenosis. Conclusion 1. No significant coronary artery disease 2. Severe left ventricle systolic dysfunction with ejection fraction estimated at 15% ASSESSMENT/PLAN ASSESSMENT/PLAN NSTEMI, demand mediated. cardiac cath recent without coronary disease. myocardial bridging seen distally. increase beta blockers as tolerated NICM with acuet on chronic systolic heart failure - IV diuresis, accurate I/Os, continue medical mgmt. add bidil as she has ACEI allergy. consider Life Vest on discharge. Anemia, microcytic - monitor hgb, consider Fe def, mgmt per PCP JAIDA JUNE MD 10/05/18 0704: CARDIAC CONSULT ASSESSMENT/PLAN ASSESSMENT/PLAN Patient seen and examined 10/04/18. Agree with MEAT SELECTOR's assessment and plan. Chest pain with atypical features and most probably musculoskeletal. Non-STEMI most probably demand ischemia/type II Recent cardiac catheterization did not show any significant coronary artery stenosis Recent 2-D echo showed LVEF 20-25% Continue diuresis for acute on chronic systolic heart failure Thank you for your consultation CRYS DING APRN Oct 04, 2018 15:38 JAIDA JUNE MD Oct 05, 2018 07:04
[2018-10-04] MEDS: ISOSORBIDE DINITRATE 10 MG TABLET. PO SCH ×2 (16:02→20:36)
[2018-10-04] MEDS: hydrALAZINE 25 MG TABLET PO SCH ×2 (16:55→20:37)
[2018-10-04] MEDS: CARVEDILOL 3.125 MG TABLET. PO SCH (16:56)
[2018-10-04 19:40] VITALS: BP 107/69
[2018-10-04 23:36] VITALS: BP 92/51
[2018-10-05] MEDS: ALBUTEROL SULFATE 2.5 MG/3 ML NEBU. NEB SCH ×3 (02:23→11:37)
[2018-10-05 03:00] VITALS: BP 108/69
[2018-10-05 05:13] LABS: ALBUMIN 2.7 g/dL (3.4-5.0); CALCIUM 7.9 mg/dL (8.5-10.1); CREATININE 0.8 mg/dL (0.6-1.0); GFR 97.7; PHOSPHORUS 3.3 mg/dL (2.6-4.7); POTASSIUM 3.8 mmol/L (3.5-5.1)
[2018-10-05 07:00] VITALS: BP 115/77
[2018-10-05] MEDS: PRENATAL MULTIVITAMIN TABLET. PO SCH (08:41)
[2018-10-05] MEDS: ISOSORBIDE DINITRATE 10 MG TABLET. PO SCH (08:41)
[2018-10-05] MEDS: ASPIRIN ENTERIC COATED 81 MG TABLET.DR. PO SCH (08:41)
[2018-10-05] MEDS: POTASSIUM CHLORIDE 20 MEQ TABLET.ER. PO SCH (08:41)
[2018-10-05] MEDS: CARVEDILOL 3.125 MG TABLET. PO SCH (08:42)
[2018-10-05] MEDS: BENZONATATE 100 MG CAPSULE. PO SCH (08:42)
[2018-10-05] MEDS: FUROSEMIDE 40 MG/4 ML VIAL. IVP SCH (08:42)
[2018-10-05] MEDS: hydrALAZINE 25 MG TABLET PO SCH (09:00)
[2018-10-05] MEDS ORDERED: ACETAMINOPHEN 325 MG TABLET. PO PRN (10:15)
--- NOTE | 2018-10-05 10:34 | PDOC ---
SAMANTHA DURBIN ROADS SUPERVISOR 10/05/18 1034: CARDIO Progress Notes Date and Time Date of Service 10/05/2018 Time of Evaluation 1000 Subjective Subjective: No Chest Pain, No shortness of breath, No Palpitations Vitals Vitals Vital Signs Date Time Temp Pulse Resp B/P (MAP) Pulse Ox O2 Delivery O2 Flow Rate FiO2 10/05/18 09:00 90 108/66 10/05/18 07:52 100 Nasal Cannula 1.0 10/05/18 07:00 98.0 18 98.0 Weight Weight [ ] Input and Output Intake and Output Intake and Output 10/05/18 06:59 Intake Total 1000 ml Output Total 1000 ml Balance 0 ml Intake Oral 1000 ml Output Urine Total 1000 ml # Bowel Movements 1 Laboratory Labs Laboratory Tests Test 10/04/18 12:15 10/04/18 19:10 10/05/18 04:15 Troponin I Quantitative 1.494 ng/mL (0.000-0.055) 1.467 ng/mL (0.000-0.055) Sodium Level 140 mmol/L (136-145) Potassium Level 3.8 mmol/L (3.5-5.1) Chloride Level 106 mmol/L (98-107) Carbon Dioxide Level 26 mmol/L (21-32) Anion Gap 8 (6-14) Blood Urea Nitrogen 17 mg/dL (7-20) Creatinine 0.8 mg/dL (0.6-1.0) Estimated GFR (Cockcroft-Gault) 97.7 Glucose Level 95 mg/dL (70-99) Calcium Level 7.9 mg/dL (8.5-10.1) Phosphorus Level 3.3 mg/dL (2.6-4.7) Albumin 2.7 g/dL (3.4-5.0) Microbiology Micro Microbiology 10/04/18 Blood Culture - Preliminary, Resulted NO GROWTH AFTER 1 DAY Physical Exam HEENT: Neck Supple W Full Motion Chest: Symmetric LUNGS: Clear to Auscultation Heart: S1S2, RRR (SR with PVCs), other (sinus tachycardia) Abdomen: Soft N/T Extremities: No Calf Tenderness Neurology: alert, oriented, follow commands Assessment Assessment 1. NSTEMI, demand mediated. cardiac cath recent without coronary disease. myocardial bridging seen distally. increase beta blockers as tolerated 2. NICM with acute on chronic systolic CHF. NYHA1-2 3. Anemia, microcytic Recommendations 1. CM for disability application 2. will need contraception will defer to PCP 3. Lifevest is ideal but would not be able to afford. Will need frther outpt optimization but given her financial constraints, she is high risk for nonadherence. 4. Continue with current regimen. 5. Encouraged to follow up in office. 6. Further CHF education per staff. JAIDA JUNE MD 10/06/18 0915: CARDIO Progress Notes Assessment Assessment Patient seen and examined 10/05/18. Agree with ARMATURE TESTER's assessment and plan. Acute on chronic systolic heart failure better compensated Continue medical management for non-STEMI Follow-up with our office in 1 month SAMANTHA DURBIN APRN Oct 05, 2018 10:34 JAIDA JUNE MD Oct 06, 2018 09:15
--- NOTE | 2018-10-05 10:51 | PDOC ---
PROGRESS NOTES History of Present Illness History of Present Illness Assessment/Plan CHF exacerbation cardiomyopathy, SEVERE Hypertension ELEVATED TROPONIN I NSTEMI , demand ischemia PLAN: CVC cardiac floor, beulah Lasix 40 PO DAILY Cards FOLLOWING home meds potassium supplements Cardiac diet SHE PLANS FOR btl SOON , NEEDS PCP ADIN cannot afford lifevest BTL soon home if ok with cardiology today LEFT VENTRICLE The Left Ventricle is moderately dilated. There is mild concentric left ventricular hypertrophy. The systolic function is severely impaired. The Ejection Fraction is 20-25%. There is global hypokinesis of the left ventricle. RIGHT VENTRICLE The right ventricle is normal size. There is normal right ventricular wall thickness. The right ventricular systolic function is normal. ATRIA The left atrium is mild to moderately dilated. The right atrium size is normal. Interatrial septum bowed toward the right. AORTIC VALVE The aortic valve is normal in structure and function. Doppler and Color Flow revealed trace to mild aortic regurgitation. There is no significant aortic valvular stenosis. MITRAL VALVE The mitral valve is normal in structure and function. There is no evidence of mitral valve prolapse. There is no mitral valve stenosis. Doppler and Color- flow revealed moderate eccentric mitral regurgitation. TRICUSPID VALVE The tricuspid valve is normal in structure and function. Doppler and Color Flow revealed trace to mild tricuspid regurgitation. There is no tricuspid valve stenosis. PULMONIC VALVE The pulmonary valve is normal in structure and function. Doppler and Color Flow revealed mild to moderate pulmonic valvular regurgitation. GREAT VESSELS The aortic root is normal in size. The IVC is dilated and collapses <50% with inspiration. PERICARDIAL EFFUSION There is no evidence of significant pericardial effusion. Critical Notification Critical Value: No <Conclusion> The Left Ventricle is moderately dilated. The systolic function is severely impaired. The Ejection Fraction is 20-25%. There is global hypokinesis of the left ventricle. There is mild concentric left ventricular hypertrophy. There is no significant aortic valvular stenosis. Doppler and Color Flow revealed trace to mild aortic regurgitation. Doppler and Color-flow revealed moderate eccentric mitral regurgitation. Doppler and Color Flow revealed trace to mild tricuspid regurgitation. Signed by : Maximiliano Dean MD Electronically Approved : 09/08/2018 14:28:22 Vitals Vitals Vital Signs Date Time Temp Pulse Resp B/P (MAP) Pulse Ox O2 Delivery O2 Flow Rate FiO2 10/05/18 09:00 90 108/66 10/05/18 07:52 100 Nasal Cannula 1.0 10/05/18 07:00 98.0 18 98.0 Physical Exam General: Alert, Oriented X3, Cooperative, mild distress Heart: Regular rate, Normal S1, Normal S2, Other (no gallops, no obvious murmurs) Lungs: Clear Abdomen: Normal bowel sounds, Soft, No tenderness Extremities: No clubbing, No cyanosis, No edema, Normal pulses, Other (trace edema) Skin: No rashes, No breakdown, No significant lesion Labs LABS Laboratory Tests Test 10/04/18 12:15 10/04/18 19:10 10/05/18 04:15 Troponin I Quantitative 1.494 ng/mL (0.000-0.055) 1.467 ng/mL (0.000-0.055) Sodium Level 140 mmol/L (136-145) Potassium Level 3.8 mmol/L (3.5-5.1) Chloride Level 106 mmol/L (98-107) Carbon Dioxide Level 26 mmol/L (21-32) Anion Gap 8 (6-14) Blood Urea Nitrogen 17 mg/dL (7-20) Creatinine 0.8 mg/dL (0.6-1.0) Estimated GFR (Cockcroft-Gault) 97.7 Glucose Level 95 mg/dL (70-99) Calcium Level 7.9 mg/dL (8.5-10.1) Phosphorus Level 3.3 mg/dL (2.6-4.7) Albumin 2.7 g/dL (3.4-5.0) Assessment and Plan Assessmemt and Plan Problems Medical Problems: (1) Cardiomyopathy Status: Acute Comment Review of Relevant I have reviewed the following items cholo (where applicable) has been applied. Labs Laboratory Tests Test 10/04/18 06:25 10/04/18 10:25 10/04/18 12:15 10/04/18 19:10 White Blood Count 6.4 x10^3/uL (4.0-11.0) Red Blood Count 3.71 x10^6/uL (3.50-5.40) Hemoglobin 8.9 g/dL (12.0-15.5) Hematocrit 28.4 % (36.0-47.0) Mean Corpuscular Volume 76 fL (79-100) Mean Corpuscular Hemoglobin 24 pg (25-35) Mean Corpuscular Hemoglobin Concent 31 g/dL (31-37) Red Cell Distribution Width 17.0 % (11.5-14.5) Platelet Count 361 x10^3/uL (140-400) Neutrophils (%) (Auto) 65 % (31-73) Lymphocytes (%) (Auto) 22 % (24-48) Monocytes (%) (Auto) 10 % (0-9) Eosinophils (%) (Auto) 3 % (0-3) Basophils (%) (Auto) 1 % (0-3) Neutrophils # (Auto) 4.1 x10^3uL (1.8-7.7) Lymphocytes # (Auto) 1.4 x10^3/uL (1.0-4.8) Monocytes # (Auto) 0.6 x10^3/uL (0.0-1.1) Eosinophils # (Auto) 0.2 x10^3/uL (0.0-0.7) Basophils # (Auto) 0.1 x10^3/uL (0.0-0.2) Sodium Level 141 mmol/L (136-145) Potassium Level 4.1 mmol/L (3.5-5.1) Chloride Level 106 mmol/L (98-107) Carbon Dioxide Level 23 mmol/L (21-32) Anion Gap 12 (6-14) Blood Urea Nitrogen 16 mg/dL (7-20) Creatinine 0.8 mg/dL (0.6-1.0) Estimated GFR (Cockcroft-Gault) 97.7 BUN/Creatinine Ratio 20 (6-20) Glucose Level 101 mg/dL (70-99) Lactic Acid Level 0.9 mmol/L (0.4-2.0) Calcium Level 8.3 mg/dL (8.5-10.1) Total Bilirubin 0.4 mg/dL (0.2-1.0) Aspartate Amino Transf (AST/SGOT) 31 U/L (15-37) Alanine Aminotransferase (ALT/SGPT) 27 U/L (14-59) Alkaline Phosphatase 65 U/L (46-116) Troponin I Quantitative 1.598 ng/mL (0.000-0.055) 1.494 ng/mL (0.000-0.055) 1.467 ng/mL (0.000-0.055) DT-Mlw-B-Type Natriuretic Peptide 8932 pg/mL (0-124) Total Protein 6.6 g/dL (6.4-8.2) Albumin 2.8 g/dL (3.4-5.0) Albumin/Globulin Ratio 0.7 (1.0-1.7) Influenza Type A Antigen Negative (NEGATIVE) Influenza Type B Antigen Negative (NEGATIVE) Test 10/05/18 04:15 Sodium Level 140 mmol/L (136-145) Potassium Level 3.8 mmol/L (3.5-5.1) Chloride Level 106 mmol/L (98-107) Carbon Dioxide Level 26 mmol/L (21-32) Anion Gap 8 (6-14) Blood Urea Nitrogen 17 mg/dL (7-20) Creatinine 0.8 mg/dL (0.6-1.0) Estimated GFR (Cockcroft-Gault) 97.7 Glucose Level 95 mg/dL (70-99) Calcium Level 7.9 mg/dL (8.5-10.1) Phosphorus Level 3.3 mg/dL (2.6-4.7) Albumin 2.7 g/dL (3.4-5.0) Laboratory Tests Test 10/04/18 12:15 10/04/18 19:10 10/05/18 04:15 Troponin I Quantitative 1.494 ng/mL (0.000-0.055) 1.467 ng/mL (0.000-0.055) Sodium Level 140 mmol/L (136-145) Potassium Level 3.8 mmol/L (3.5-5.1) Chloride Level 106 mmol/L (98-107) Carbon Dioxide Level 26 mmol/L (21-32) Anion Gap 8 (6-14) Blood Urea Nitrogen 17 mg/dL (7-20) Creatinine 0.8 mg/dL (0.6-1.0) Estimated GFR (Cockcroft-Gault) 97.7 Glucose Level 95 mg/dL (70-99) Calcium Level 7.9 mg/dL (8.5-10.1) Phosphorus Level 3.3 mg/dL (2.6-4.7) Albumin 2.7 g/dL (3.4-5.0) Microbiology 10/04/18 Blood Culture - Preliminary, Resulted NO GROWTH AFTER 1 DAY Medications Current Medications Aspirin (Children'S Aspirin) 324 mg 1X ONCE PO Last administered on 10/04/18 07:03; Start 10/04/18 at 06:30; Stop 10/04/18 at 06:31; Status DC Morphine Sulfate (Morphine Sulfate) 2 mg 1X ONCE IV Last administered on 07:02; Start 10/04/18 at 06:30; Stop 10/04/18 at 06:31; Status DC Furosemide (Lasix) 60 mg 1X ONCE IVP Last administered on 10/04/18 07:03; Start 10/04/18 at 06:30; Stop 10/04/18 at 06:31; Status DC Nitroglycerin/ Dextrose 250 ml @ 0 mls/hr 1X ONCE IV Last administered on 10/04 07:05; Start 10/04/18 at 06:30; Stop 10/04/18 at 15:48; Status DC Aspirin (Ecotrin) 81 mg DAILYWBKFT PO Last administered on 10/05/18 08:41; Start 10/04/18 at 10:00 Carvedilol (Coreg) 3.125 mg BIDWMEALS PO Last administered on 10/04/18 12:59; Start 10/04/18 at 10:00; Stop 10/04/18 at 15:48; Status DC Non-Formulary Medication (Albuterol Sulfate (Ventolin Hfa Inhaler)) 2 puff Q4HRS INH ; Start 10/04/18 at 12:00; Status UNV Benzonatate (Tessalon Perle) 100 mg [id number] PO Last administered on 10/05/18 08 :42; Start 10/04/18 at 10:00 Multivit/ Folic Acid/Iron (Multivitamin ) 1 tab DAILY PO Last administered on 10/05/18 08:41; Start 10/04/18 at 10:00 Potassium Chloride (Klor-Con) 20 meq DAILYWBKFT PO Last administered on 08:41; Start 10/04/18 at 10:00 Guaifenesin (Robitussin Dm) 10 ml PRN Q6HRS PRN PO COUGH Last administered on 12:58; Start 10/04/18 at 09:30 Furosemide (Lasix) 40 mg DAILY IVP Last administered on 10/05/18 08:42; Start 10/04/18 at 10:00 Albuterol Sulfate (Ventolin Neb Soln) 2.5 mg Q4HRS NEB Last administered on 07:51; Start 10/04/18 at 12:00 Morphine Sulfate (Morphine Sulfate) 2 mg PRN Q2HR PRN IV PAIN Last administered on 10/04/18 19:37; Start 10/04/18 at 10:00 Carvedilol (Coreg) 6.25 mg BIDWMEALS PO Last administered on 10/05/18 08:42; Start 10/04/18 at 17:00 Hydralazine HCl (Apresoline) 25 mg TID PO Last administered on 10/04/18 20:37 ; Start 10/04/18 at 16:00 Isosorbide Dinitrate (Isordil) 10 mg TID PO Last administered on 10/05/18 08: 41; Start 10/04/18 at 16:00 Acetaminophen (Tylenol) 650 mg PRN Q6HRS PRN PO HEADACHE Last administered on 10:20; Start 10/05/18 at 10:15 Active Scripts Active Ventolin Hfa Inhaler (Albuterol Sulfate) 18 Gm Hfa.aer.ad 2 Puff INH Q4HRS Tessalon Perle (Benzonatate) 100 Mg Capsule 1 Cap PO TID Doxycycline Hyclate 100 Mg Tablet. 1 Tab PO BID Tablet (Pnv Cmb#95/Ferrous Fumarate/Fa) 1 Each Tablet 1 Tab PO DAILY Aspirin Ec (Aspirin) 81 Mg Tablet. 81 Mg PO DAILYWBKFT Reported Lasix (Furosemide) 40 Mg Tablet 1 Tab PO DAILY Potassium Chloride 20 Meq Tablet.er 20 Meq PO DAILY Coreg (Carvedilol) 3.125 Mg Tablet 3.125 Mg PO BIDWMEALS Labetalol Hcl 100 Mg Tablet 1 Tab PO BID Vitals/I & O Vital Sign - Last 24 Hours 10/04/18 10/04/18 10/04/18 10/04/18 12:16 12:59 14:47 16:02 Pulse 97 89 89 Resp 18 B/P (MAP) 121/48 126/89 (101) 117/83 Pulse Ox 100 100 O2 Delivery Nasal Cannula Nasal Cannula O2 Flow Rate 1.0 2.0 10/04/18 10/04/18 10/04/18 10/04/18 16:19 16:55 16:56 19:25 Pulse 89 89 B/P (MAP) 117/83 117/83 Pulse Ox 98 O2 Delivery Nasal Cannula Nasal Cannula O2 Flow Rate 1.0 1.0 10/04/18 10/04/18 10/04/18 10/04/18 19:37 19:40 19:47 20:07 Temp 97.3 97.3 Pulse 75 Resp 18 B/P (MAP) 107/69 (82) Pulse Ox 100 O2 Delivery Nasal Cannula Nasal Cannula Nasal Cannula Nasal Cannula O2 Flow Rate 2.0 2.0 2.0 2.0 10/04/18 10/04/18 10/04/18 10/04/18 20:36 20:37 22:54 23:36 Temp 97.6 97.6 Pulse 75 75 83 Resp 17 B/P (MAP) 107/69 107/69 92/51 (65) Pulse Ox 100 97 O2 Delivery Nasal Cannula Nasal Cannula O2 Flow Rate 1.0 2.0 10/05/18 10/05/18 10/05/18 10/05/18 02:23 03:00 07:00 07:30 Temp 97.9 98.0 97.9 98.0 Pulse 76 82 Resp 17 18 B/P (MAP) 108/69 (82) 115/77 (90) Pulse Ox 100 99 99 O2 Delivery Nasal Cannula Nasal Cannula Nasal Cannula Nasal Cannula O2 Flow Rate 1.0 2.0 2.0 2.0 10/05/18 10/05/18 10/05/18 10/05/18 07:52 08:41 08:42 09:00 Pulse 82 82 90 B/P (MAP) 115/77 115/77 108/66 Pulse Ox 100 O2 Delivery Nasal Cannula O2 Flow Rate 1.0 Intake and Output 10/04/18 10/04/18 10/05/18 15:00 23:00 07:00 Intake Total 800 ml 200 ml Output Total 400 ml 600 ml Balance -400 ml 200 ml 200 ml BOB FOSTER MD Oct 05, 2018 10:51
[2018-10-05 11:00] VITALS: BP 108/66
--- NOTE | 2018-10-05 11:10 | PDOC3 ---
Discharge Summary Date of Admission: Oct 04, 2018 Date of Discharge: Oct 05, 2018 Follow-Up: 3-5 days Admitting Diagnosis comment: discharge dx CHF exacerbation acute cardiomyopathy, SEVERE Hypertension ELEVATED TROPONIN I NSTEMI , demand ischemia PLAN: CVC cardiac floor, Lasix 40 PO DAILY Cards FOLLOWING home meds potassium supplements Cardiac diet SHE PLANS FOR btl SOON , NEEDS PCP ADIN cannot afford lifevest BTL soon home if ok with cardiology today LEFT VENTRICLE The Left Ventricle is moderately dilated. There is mild concentric left ventricular hypertrophy. The systolic function is severely impaired. The Ejection Fraction is 20-25%. There is global hypokinesis of the left ventricle. RIGHT VENTRICLE The right ventricle is normal size. There is normal right ventricular wall thickness. The right ventricular systolic function is normal. ATRIA The left atrium is mild to moderately dilated. The right atrium size is normal. Interatrial septum bowed toward the right. AORTIC VALVE The aortic valve is normal in structure and function. Doppler and Color Flow revealed trace to mild aortic regurgitation. There is no significant aortic valvular stenosis. MITRAL VALVE The mitral valve is normal in structure and function. There is no evidence of mitral valve prolapse. There is no mitral valve stenosis. Doppler and Color- flow revealed moderate eccentric mitral regurgitation. TRICUSPID VALVE The tricuspid valve is normal in structure and function. Doppler and Color Flow revealed trace to mild tricuspid regurgitation. There is no tricuspid valve stenosis. PULMONIC VALVE The pulmonary valve is normal in structure and function. Doppler and Color Flow revealed mild to moderate pulmonic valvular regurgitation. GREAT VESSELS The aortic root is normal in size. The IVC is dilated and collapses <50% with inspiration. PERICARDIAL EFFUSION There is no evidence of significant pericardial effusion. Critical Notification Critical Value: No <Conclusion> The Left Ventricle is moderately dilated. The systolic function is severely impaired. The Ejection Fraction is 20-25%. There is global hypokinesis of the left ventricle. There is mild concentric left ventricular hypertrophy. There is no significant aortic valvular stenosis. Doppler and Color Flow revealed trace to mild aortic regurgitation. Doppler and Color-flow revealed moderate eccentric mitral regurgitation. Doppler and Color Flow revealed trace to mild tricuspid regurgitation. Signed by : Maximiliano Dean MD Electronically Approved : 09/08/2018 14:28:22 Vitals Vitals Vital Signs Date Time Temp Pulse Resp B/P (MAP) Pulse Ox O2 Delivery O2 Flow Rate FiO2 10/05/18 09:00 90 108/66 10/05/18 07:52 100 Nasal Cannula 1.0 10/05/18 07:00 98.0 18 98.0 Physical Exam General: Alert, Oriented X3, Cooperative, mild distress Heart: Regular rate, Normal S1, Normal S2, Other (no gallops, no obvious murmurs) Lungs: Clear Abdomen: Normal bowel sounds, Soft, No tenderness Extremities: No clubbing, No cyanosis, No edema, Normal pulses, Other (trace edema) Skin: No rashes, No breakdown, No significant lesion FINAL DIAGNOSIS Problems Medical Problems: (1) Cardiomyopathy Status: Acute Brief Hospital Course Ms. Street is a 38 old [sex] who presented with [chf/ cardiomyopathy ] CONDITION AT DISCHARGE: Improved Discharge Medications Current Medications Aspirin (Children'S Aspirin) 324 mg 1X ONCE PO Last administered on 10/04/18 07:03; Start 10/04/18 at 06:30; Stop 10/04/18 at 06:31; Status DC Morphine Sulfate (Morphine Sulfate) 2 mg 1X ONCE IV Last administered on 07:02; Start 10/04/18 at 06:30; Stop 10/04/18 at 06:31; Status DC Furosemide (Lasix) 60 mg 1X ONCE IVP Last administered on 10/04/18 07:03; Start 10/04/18 at 06:30; Stop 10/04/18 at 06:31; Status DC Nitroglycerin/ Dextrose 250 ml @ 0 mls/hr 1X ONCE IV Last administered on 10/04 07:05; Start 10/04/18 at 06:30; Stop 10/04/18 at 15:48; Status DC Aspirin (Ecotrin) 81 mg DAILYWBKFT PO Last administered on 10/05/18 08:41; Start 10/04/18 at 10:00 Carvedilol (Coreg) 3.125 mg BIDWMEALS PO Last administered on 10/04/18 12:59; Start 10/04/18 at 10:00; Stop 10/04/18 at 15:48; Status DC Non-Formulary Medication (Albuterol Sulfate (Ventolin Hfa Inhaler)) 2 puff Q4HRS INH ; Start 10/04/18 at 12:00; Status UNV Benzonatate (Tessalon Perle) 100 mg [id number] PO Last administered on 10/05/18 08 :42; Start 10/04/18 at 10:00 Multivit/ Folic Acid/Iron (Multivitamin ) 1 tab DAILY PO Last administered on 10/05/18 08:41; Start 10/04/18 at 10:00 Potassium Chloride (Klor-Con) 20 meq DAILYWBKFT PO Last administered on 08:41; Start 10/04/18 at 10:00 Guaifenesin (Robitussin Dm) 10 ml PRN Q6HRS PRN PO COUGH Last administered on 12:58; Start 10/04/18 at 09:30 Furosemide (Lasix) 40 mg DAILY IVP Last administered on 10/05/18 08:42; Start 10/04/18 at 10:00 Albuterol Sulfate (Ventolin Neb Soln) 2.5 mg Q4HRS NEB Last administered on 07:51; Start 10/04/18 at 12:00 Morphine Sulfate (Morphine Sulfate) 2 mg PRN Q2HR PRN IV PAIN Last administered on 10/04/18 19:37; Start 10/04/18 at 10:00 Carvedilol (Coreg) 6.25 mg BIDWMEALS PO Last administered on 10/05/18 08:42; Start 10/04/18 at 17:00 Hydralazine HCl (Apresoline) 25 mg TID PO Last administered on 10/04/18 20:37 ; Start 10/04/18 at 16:00 Isosorbide Dinitrate (Isordil) 10 mg TID PO Last administered on 10/05/18 08: 41; Start 10/04/18 at 16:00 Acetaminophen (Tylenol) 650 mg PRN Q6HRS PRN PO HEADACHE Last administered on 10:20; Start 10/05/18 at 10:15 Active Scripts Active Ventolin Hfa Inhaler (Albuterol Sulfate) 18 Gm Hfa.aer.ad 2 Puff INH Q4HRS Tessalon Perle (Benzonatate) 100 Mg Capsule 1 Cap PO TID Doxycycline Hyclate 100 Mg Tablet.dr 1 Tab PO BID Tablet (Pnv Cmb#95/Ferrous Fumarate/Fa) 1 Each Tablet 1 Tab PO DAILY Aspirin Ec (Aspirin) 81 Mg Tablet. 81 Mg PO DAILYWBKFT Reported Lasix (Furosemide) 40 Mg Tablet 1 Tab PO DAILY Potassium Chloride 20 Meq Tablet.er 20 Meq PO DAILY Coreg (Carvedilol) 3.125 Mg Tablet 3.125 Mg PO BIDWMEALS Labetalol Hcl 100 Mg Tablet 1 Tab PO BID Vital Signs Vital Signs Date Time Temp Pulse Resp B/P (MAP) Pulse Ox O2 Delivery O2 Flow Rate FiO2 10/05/18 09:00 90 108/66 10/05/18 07:52 100 Nasal Cannula 1.0 10/05/18 07:00 98.0 18 98.0 Labs Laboratory Tests Test 10/04/18 06:25 10/04/18 10:25 10/04/18 12:15 10/04/18 19:10 White Blood Count 6.4 x10^3/uL (4.0-11.0) Red Blood Count 3.71 x10^6/uL (3.50-5.40) Hemoglobin 8.9 g/dL (12.0-15.5) Hematocrit 28.4 % (36.0-47.0) Mean Corpuscular Volume 76 fL (79-100) Mean Corpuscular Hemoglobin 24 pg (25-35) Mean Corpuscular Hemoglobin Concent 31 g/dL (31-37) Red Cell Distribution Width 17.0 % (11.5-14.5) Platelet Count 361 x10^3/uL (140-400) Neutrophils (%) (Auto) 65 % (31-73) Lymphocytes (%) (Auto) 22 % (24-48) Monocytes (%) (Auto) 10 % (0-9) Eosinophils (%) (Auto) 3 % (0-3) Basophils (%) (Auto) 1 % (0-3) Neutrophils # (Auto) 4.1 x10^3uL (1.8-7.7) Lymphocytes # (Auto) 1.4 x10^3/uL (1.0-4.8) Monocytes # (Auto) 0.6 x10^3/uL (0.0-1.1) Eosinophils # (Auto) 0.2 x10^3/uL (0.0-0.7) Basophils # (Auto) 0.1 x10^3/uL (0.0-0.2) Sodium Level 141 mmol/L (136-145) Potassium Level 4.1 mmol/L (3.5-5.1) Chloride Level 106 mmol/L (98-107) Carbon Dioxide Level 23 mmol/L (21-32) Anion Gap 12 (6-14) Blood Urea Nitrogen 16 mg/dL (7-20) Creatinine 0.8 mg/dL (0.6-1.0) Estimated GFR (Cockcroft-Gault) 97.7 BUN/Creatinine Ratio 20 (6-20) Glucose Level 101 mg/dL (70-99) Lactic Acid Level 0.9 mmol/L (0.4-2.0) Calcium Level 8.3 mg/dL (8.5-10.1) Total Bilirubin 0.4 mg/dL (0.2-1.0) Aspartate Amino Transf (AST/SGOT) 31 U/L (15-37) Alanine Aminotransferase (ALT/SGPT) 27 U/L (14-59) Alkaline Phosphatase 65 U/L (46-116) Troponin I Quantitative 1.598 ng/mL (0.000-0.055) 1.494 ng/mL (0.000-0.055) 1.467 ng/mL (0.000-0.055) AF-Clb-L-Type Natriuretic Peptide 8932 pg/mL (0-124) Total Protein 6.6 g/dL (6.4-8.2) Albumin 2.8 g/dL (3.4-5.0) Albumin/Globulin Ratio 0.7 (1.0-1.7) Influenza Type A Antigen Negative (NEGATIVE) Influenza Type B Antigen Negative (NEGATIVE) Test 10/05/18 04:15 Sodium Level 140 mmol/L (136-145) Potassium Level 3.8 mmol/L (3.5-5.1) Chloride Level 106 mmol/L (98-107) Carbon Dioxide Level 26 mmol/L (21-32) Anion Gap 8 (6-14) Blood Urea Nitrogen 17 mg/dL (7-20) Creatinine 0.8 mg/dL (0.6-1.0) Estimated GFR (Cockcroft-Gault) 97.7 Glucose Level 95 mg/dL (70-99) Calcium Level 7.9 mg/dL (8.5-10.1) Phosphorus Level 3.3 mg/dL (2.6-4.7) Magnesium Level 1.8 mg/dL (1.8-2.4) Albumin 2.7 g/dL (3.4-5.0) Laboratory Tests Test 10/04/18 12:15 10/04/18 19:10 10/05/18 04:15 Troponin I Quantitative 1.494 ng/mL (0.000-0.055) 1.467 ng/mL (0.000-0.055) Sodium Level 140 mmol/L (136-145) Potassium Level 3.8 mmol/L (3.5-5.1) Chloride Level 106 mmol/L (98-107) Carbon Dioxide Level 26 mmol/L (21-32) Anion Gap 8 (6-14) Blood Urea Nitrogen 17 mg/dL (7-20) Creatinine 0.8 mg/dL (0.6-1.0) Estimated GFR (Cockcroft-Gault) 97.7 Glucose Level 95 mg/dL (70-99) Calcium Level 7.9 mg/dL (8.5-10.1) Phosphorus Level 3.3 mg/dL (2.6-4.7) Magnesium Level 1.8 mg/dL (1.8-2.4) Albumin 2.7 g/dL (3.4-5.0) Allergies Allergies Coded Allergies Type Severity Reaction Last Updated Verified lisinopril Allergy Severe Anaphylaxis 03/22/18 Yes tramadol Allergy Severe Anaphylaxis 10/04/18 Yes Disposition/Orders: D/C to Home Patient Instructions d/c planning 37 min BOB FOSTER MD Oct 05, 2018 11:10
[2018-10-05] MEDS ORDERED: HYDR-2868 PO (11:12)
[2018-10-05] MEDS ORDERED: ISOS10TA2 PO (11:12)
--- NOTE | 2018-10-05 11:13 | DISCH ---
DISCHARGE INSTRUCTIONS Condition on Discharge Condition on Discharge: Guarded Activity After Discharge Activity Instructions for Disc: Avoid exertion, Avoid high altitudes, Progressive ambulation Bathing Instructions: Shower-keep dressing dry Lifting Instructions after Dis: No heavy lifting Exercise Instruction after Dis: Progress as tolerated Driving Instructions after Dis: Do not drive Weight Bearing Status after Di: Partial weight bearing Diet after Discharge Diet after Discharge: Cardiac, Low Sodium 4 gm Wound Incision Care Wound/Incision Care: Keep wound/cast CDI Wound Care Equipment: Dressings Checks after Discharge Checks after discharge: Check blood press - daily, Check your Temp as needed Contacting the DR. after DC Call your doctor for: Concerns you may have BOB FOSTER MD Oct 05, 2018 11:13
[2018-10-05] MEDS ORDERED: CARV6.25 PO (11:29)
--- NOTE | 2018-10-05 12:33 | NUR ---
Discharge Note: JAUN NELSON [address] Discharge instructions and discharge home medications reviewed with Patient and a copy given. All questions have been answered and understanding verbalized.
== END 2018-10-05 13:00 | disposition home or self-care (01) | DRG 280 ==
LOC: ER 05:58 → 2 SOUTH 08:30
PROVIDERS: ADMIT Internal Medicine; ATTEND Internal Medicine
DX: I21.A1 Myocardial infarction type 2 (principal); I50.23 Acute on chronic systolic (congestive) heart failure; Q24.5 Malformation of coronary vessels; I42.9 Cardiomyopathy, unspecified; I11.0 Hypertensive heart disease with heart failure; D50.9 Iron deficiency anemia, unspecified; F17.210 Nicotine dependence, cigarettes, uncomplicated; Z82.49 Family history of ischemic heart disease and other diseases of the circulatory system; Z87.442 Personal history of urinary calculi; Z87.01 Personal history of pneumonia (recurrent); Z88.8 Allergy status to other drugs, medicaments and biological substances; Z79.899 Other long term (current) drug therapy
CPT/HCPCS: 36415; 71045; 80053; 80069; 83605; 83735; 83880; 84484; 85025; 87040; 87804; 93005; 94640; 94760; 96365; 96366; 96375; J1940; J2270; J3490; J7613; 99285-25

== ENCOUNTER 2018-10-05 22:33 | Inpatient (IN) | payer OTHER, SELFPAY ==
[~2018-10-05] VITALS: Ht 172.7 cm; Wt 77.3 kg
[~2018-10-05 22:33] MED LIST changes: +HYDR-2868 PO; +ISOS10TA2 PO
[2018-10-05] MEDS ORDERED: ASPIRIN CHEWABLE 81 MG TABLET. PO ONE (23:30)
[2018-10-05] MEDS ORDERED: IV NORMAL SALINE 1000ML BAG 1,000 ML IV SCH (23:30)
[2018-10-05 23:39] LABS: BASO # 0.1 x10^3/uL (0.0-0.2); BASO % 1 % (0-3); EOS # 0.2 x10^3/uL (0.0-0.7); EOS % 3 % (0-3); HEMATOCRIT 29.7 % (36.0-47.0); HEMOGLOBIN 9.5 g/dL (12.0-15.5); LYMPH # 1.7 x10^3/uL (1.0-4.8); LYMPH % 23 % (24-48); MEAN CORPUSCULAR HEMOGLOBIN 24 pg (25-35); MEAN CORPUSCULAR HGB CONC 32 g/dL (31-37); MEAN CORPUSCULAR VOLUME 76 fL (79-100); MONO # 0.6 x10^3/uL (0.0-1.1); MONO % 8 % (0-9); NEUT # 4.9 x10^3uL (1.8-7.7); NEUT % 66 % (31-73); PLATELET COUNT 306 x10^3/uL (140-400); RED BLOOD COUNT 3.89 x10^6/uL (3.50-5.40); RED CELL DISTRIBUTION WIDTH 17.5 % (11.5-14.5); WHITE BLOOD COUNT 7.5 x10^3/uL (4.0-11.0)
[2018-10-05 23:49] LABS: CREATININE 0.9 mg/dL (0.6-1.0); GFR 85.2; POTASSIUM 4.2 mmol/L (3.5-5.1)
[2018-10-05] MEDS: MORPHINE SULFATE 2 MG/ML VIAL. IV/SQ PRN (23:49)
[2018-10-05 23:54] LABS: ALBUMIN 3.2 g/dL (3.4-5.0); ALBUMIN/GLOBULIN RATIO 0.9 (1.0-1.7); MAGNESIUM 2.1 mg/dL (1.8-2.4); TOTAL BILIRUBIN 0.4 mg/dL (0.2-1.0); TOTAL PROTEIN 6.8 g/dL (6.4-8.2)
[2018-10-06] VITALS (33 sets, daily range): BP systolic 12–127; BP diastolic 75–91
[2018-10-06] MEDS ORDERED: HEPARIN for IV BOLUS 10,000 UNIT/10 ML VIAL. IV PRN (01:15)
[2018-10-06] MEDS ORDERED: ONDANSETRON PF 4 MG/2 ML VIAL. IV PRN (01:15)
[2018-10-06] MEDS ORDERED: MORPHINE SULFATE 4 MG/ML VIAL. IV PRN (01:15)
--- NOTE | 2018-10-06 01:15 | PHYS DOC ---
Past Medical History Past Medical History: CHF, Hypertension, Other Additional Past Medical Histor: cardiomyopathy Past Surgical History: Other Additional Past Surgical Histo: cardiac cath Alcohol Use: None Drug Use: Marijuana Adult General Chief Complaint Chief Complaint: CHEST PAIN HPI HPI Patient is a 38-year-old female who presents with complaint of pleuritic-type chest pain that started earlier today. She states the pain is primarily on the left side of her chest and radiates into both of her arms. She states that she was just discharged home today from this facility after being admitted for CHF. She rates her pain to be an 8 out of 10. She states the pain is worsened with deep breathing and with movement. She denies any nausea, vomiting or diaphoresis. She does indicate that she has orthopnea and exertional dyspnea. Review of Systems Review of Systems Constitutional: Denies fever or chills [] Respiratory: Complains of exertional shortness of breath [] Cardiovascular: No additional information not addressed in HPI [] GI: Denies abdominal pain, nausea, vomitingor diarrhea [] Integument: Denies rash or skin lesions [] Neurologic: Denies headache, focal weakness or sensory changes [] All other systems were reviewed and found to be within normal limits, except as documented in this note. Current Medications Current Medications Current Medications Medications (Trade) Dose Ordered Sig/[facility] Start Time Stop Time Status Last Admin Dose Admin Aspirin (Children'S Aspirin) 324 mg 1X ONCE 10/05/18 23:30 10/05/18 23:31 DC 10/05/18 23:47 324 MG Morphine Sulfate (Morphine Sulfate) 2 mg PRN Q15MIN PRN 10/05/18 23:15 10/06/18 23:14 10/05/18 23:49 2 MG Sodium Chloride 1,000 ml @ 100 mls/hr Q10H 10/05/18 23:30 10/06/18 09:29 10/05/18 23:47 100 MLS/HR Allergies Allergies Allergies Coded Allergies Type Severity Reaction Last Updated Verified lisinopril Allergy Severe Anaphylaxis 03/22/18 Yes tramadol Allergy Severe Anaphylaxis 10/04/18 Yes Physical Exam Physical Exam Constitutional: Well developed, well nourished, no acute distress, non-toxic appearance. [] HENT: Normocephalic, atraumatic, bilateral external ears normal, oropharynx moist, no oral exudates, nose normal. [] Eyes: PERRLA, EOMI, conjunctiva normal, no discharge. [] Neck: Normal range of motion, no tenderness, supple, no stridor. [] Cardiovascular: Regular rate and rhythm. There is reproducible chest wall tenderness in the left sternal border.[] Lungs & Thorax: Bilateral breath sounds clear to auscultation [] Abdomen: Bowel sounds normal, soft, no tenderness. [] Skin: Warm, dry, no erythema, no rash. [] Extremities: No tenderness, no cyanosis, no clubbing, ROM intact, no edema. [] Neurologic: Alert and oriented X 3, no focal deficits noted. [] Current Patient Data Vital Signs Vital Signs Date Time Temp Pulse Resp B/P (MAP) Pulse Ox O2 Delivery O2 Flow Rate FiO2 10/06/18 00:21 88 18 123/89 (100) 100 Room Air 10/05/18 23:00 97.6 97.6 Lab Values Laboratory Tests Test 10/05/18 23:30 White Blood Count 7.5 x10^3/uL (4.0-11.0) Red Blood Count 3.89 x10^6/uL (3.50-5.40) Hemoglobin 9.5 g/dL (12.0-15.5) L Hematocrit 29.7 % (36.0-47.0) L Mean Corpuscular Volume 76 fL (79-100) L Mean Corpuscular Hemoglobin 24 pg (25-35) L Mean Corpuscular Hemoglobin Concent 32 g/dL (31-37) Red Cell Distribution Width 17.5 % (11.5-14.5) H Platelet Count 306 x10^3/uL (140-400) Neutrophils (%) (Auto) 66 % (31-73) Lymphocytes (%) (Auto) 23 % (24-48) L Monocytes (%) (Auto) 8 % (0-9) Eosinophils (%) (Auto) 3 % (0-3) Basophils (%) (Auto) 1 % (0-3) Neutrophils # (Auto) 4.9 x10^3uL (1.8-7.7) Lymphocytes # (Auto) 1.7 x10^3/uL (1.0-4.8) Monocytes # (Auto) 0.6 x10^3/uL (0.0-1.1) Eosinophils # (Auto) 0.2 x10^3/uL (0.0-0.7) Basophils # (Auto) 0.1 x10^3/uL (0.0-0.2) Sodium Level 141 mmol/L (136-145) Potassium Level 4.2 mmol/L (3.5-5.1) Chloride Level 105 mmol/L (98-107) Carbon Dioxide Level 24 mmol/L (21-32) Anion Gap 12 (6-14) Blood Urea Nitrogen 21 mg/dL (7-20) H Creatinine 0.9 mg/dL (0.6-1.0) Estimated GFR (Cockcroft-Gault) 85.2 BUN/Creatinine Ratio 23 (6-20) H Glucose Level 105 mg/dL (70-99) H Calcium Level 9.0 mg/dL (8.5-10.1) Magnesium Level 2.1 mg/dL (1.8-2.4) Total Bilirubin 0.4 mg/dL (0.2-1.0) Aspartate Amino Transferase (AST) 49 U/L (15-37) H Alanine Aminotransferase (ALT) 31 U/L (14-59) Alkaline Phosphatase 73 U/L (46-116) Troponin I Quantitative 12.984 ng/mL (0.000-0.055) DN-Sxu-G-Type Natriuretic Peptide 2677 pg/mL (0-124) H Total Protein 6.8 g/dL (6.4-8.2) Albumin 3.2 g/dL (3.4-5.0) L Albumin/Globulin Ratio 0.9 (1.0-1.7) L Lipase 108 U/L (73-393) Laboratory Tests 10/05/18 23:30 Laboratory Tests 10/05/18 23:30 EKG EKG [] Interpretation Time: EKG demonstrates sinus rhythm with rate of 100. There is some ST-T wave changes in the inferior leads Radiology/Procedures Radiology/Procedures [] Impressions: PROCEDURE: PORTABLE CHEST 1V Indication:soa TECHNIQUE:Portable AP chest X-ray COMPARISON:10/04/2018 FINDINGS: Heart is moderately enlarged in size. Lungs are clear. No pneumothorax or pleural effusion. Visualized bony thorax is within normal limits. IMPRESSION: Stable moderate cardiomegaly with significant improvement in previously seen pulmonary findings. Currently no significant interstitial pulmonary edema noted. Electronically signed by: Mauri Mendez DO (10/06/2018 3:54 AM) [facility] Course & Med Decision Making Course & Med Decision Making Pertinent Labs and Imaging studies reviewed. (See chart for details) [] Dragon Disclaimer Dragon Disclaimer This electronic medical record was generated, in whole or in part, using a voice recognition dictation system. Departure Departure Impression: Primary Impression: NSTEMI (non-ST elevated myocardial infarction) Disposition: 09 ADMITTED INPATIENT Admitting Physician: Melanie Jorge Condition: IMPROVED Referrals: NO PCP (PCP) SIRENA SANDERS Jr., DO Oct 06, 2018 01:15
[2018-10-06] MEDS ORDERED: HEPARIN for IV BOLUS 10,000 UNIT/10 ML VIAL. IV ONE (01:30)
[2018-10-06] MEDS: HEPARIN 25,000UTS/500ML PREMIX 500 ML IV PRN ×2 (02:13→23:47)
[2018-10-06] MEDS: ANTI-COAG MONITOR BY PHARMACY. MC PRN ×2 (02:53→09:19)
--- NOTE | 2018-10-06 03:57 | RAD ---
Indication:soa TECHNIQUE:Portable AP chest X-ray COMPARISON:10/04/2018 FINDINGS: Heart is moderately enlarged in size. Lungs are clear. No pneumothorax or pleural effusion. Visualized bony thorax is within normal limits. IMPRESSION: Stable moderate cardiomegaly with significant improvement in previously seen pulmonary findings. Currently no significant interstitial pulmonary edema noted. Electronically signed by: Mauri Mendez DO (10/06/2018 3:54 AM) [facility]
--- NOTE | 2018-10-06 05:23 | EKG ---
[facility] [address] [place] [address] Test Date: 2018-10-05 Test Time: 22:42:53 Pat Name: JAUN NELSON Department: Room: 103 1 Gender: F Director Family: : 1980 Requested By: SIRENA SANDERS Order Number: [id number] Reading MD: Deangelo Banerjee MD Measurements Intervals Vest Rate: 100 P: -90 MD: 100 QRS: 42 QRSD: 86 T: -37 QT: 348 QTc: 451 Interpretive Statements SR LVH NON-SPECIFIC ST/T CHANGES Electronically Signed On 10-12-2018 13:53:35 CDT by Deangelo Banerjee MD
[2018-10-06] MEDS: NITROGLYCERIN SUBLINGUAL 0.4 MG BOTTLE OF 25. SL PRN ×2 (07:19→07:26)
--- NOTE | 2018-10-06 07:31 | NUR ---
PATIENT ARRIVED TO ICU ROOM 103 FROM ED . REPORT RECEIVED FROM ALOK ASH. STATES HAS BEEN NOTIFIED OF ADMIT. HEPARIN AND IVFS INFUSING. MORPINE AND GIVEN IN THE ED. PATIENT STILL COMPLAINS OF CHEST PAIN. VSS. TROPONIN INCREASED, . NOTIFED OF TROPONIN. ORDER RECEIVED FOR PATIENT TO GO TO CLASSIFICATION INSPECTOR. WILL OBTAIN CONSENTS. SISTER AT BEDSIDE.
[2018-10-06] MEDS: MORPHINE SULFATE 2 MG/ML VIAL. IV/SQ PRN (07:47)
--- NOTE | 2018-10-06 07:54 | EKG ---
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
[2018-10-06] MEDS ORDERED: fentaNYL PF VIAL 100 MCG/2 ML VIAL ONE (08:09)
[2018-10-06] MEDS ORDERED: MIDAZOLAM HCL/PF 2 MG/2 ML VIAL. ONE (08:09)
[2018-10-06] MEDS ORDERED: LIDOCAINE 1% Multi-Dose 20 ML VIAL. ONE (08:11)
--- NOTE | 2018-10-06 08:39 | NUR ---
SS following for discharge planning. SS reviewed pt chart. Pt is from home and currently on room air. Pt is self pay pt. Pt was recently discharged to home from [facility] on 10/05/2018. SS will continue to follow for pending discharge needs.
[2018-10-06] MEDS ORDERED: MIDAZOLAM HCL/PF 2 MG/2 ML VIAL. IV ONE (08:45)
[2018-10-06] MEDS ORDERED: LIDOCAINE 1% Multi-Dose 20 ML VIAL. INJ ONE (08:45)
[2018-10-06] MEDS ORDERED: IODIXANOL 320 MG/ML 100 ML VIAL. IART ONE (08:45)
[2018-10-06] MEDS ORDERED: fentaNYL PF VIAL 100 MCG/2 ML VIAL IV ONE (08:45)
[2018-10-06] MEDS ORDERED: IODIXANOL 320 MG/ML 100 ML VIAL. ONE (08:54)
[2018-10-06] MEDS ORDERED: CONTRAST GIVEN. MC PRN (09:00)
--- NOTE | 2018-10-06 09:06 | PDOC ---
MODERATE SEDATION ASSESSMENT RISKS/ALTERNATIVES Risks/Alternatives Risks and alternatives of this type of sedation and procedure discussed with: RISK/ALTERNATIVES: Patient H & P ON CHART H & P H & P on chart and reviewed for co-morbid conditions and appropriate labs. H&P ON CHART: Yes STATUS PREG STATUS ASSESSED: N/A MEDS/ALLERGIES REVIEWED Meds/Allergies Reviewed Medications and Allergies including time and route of recently administered narcotics and sedatives. MEDS/ALLERGIES REVIEWED: Yes ASA RATING ASA RATING: II AIRWAY ASSESSMENT Airway Assessment Airway patency, oral function limitations, presence of caps, crowns, dentures, partials, and ability to extend neck assessed. AIRWAY ASSESSMENT: Yes MALLAMPATI SCORE MALLAMPATI SCORE: II PRE-SEDATION ASSESSMENT PRE-SEDATION ASSESSMENT: Yes JAIDA JUNE MD Oct 06, 2018 09:06
[2018-10-06] MEDS ORDERED: NITROGLYCERIN SUBLINGUAL 0.4 MG BOTTLE OF 25. SL PRN (09:15)
--- NOTE | 2018-10-06 10:03 | PDOC1 ---
History and Physical Date of Admission Date of Admission DATE: 10/06/18 TIME: 10:02 Identification/Chief Complaint Chief Complaint hest pain that started earlier today. She states the pain is primarily on the left side of her chest and radiates into both of her arms. She states that she was just discharged home today from this facility after being admitted for CHF. She rates her pain to be an 8 out of 10. She states the pain is worsened with deep breathing and with movement. 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 Past Medical History Past Medical History Past Medical History Past Medical History: CHF, Hypertension, Other Additional Past Medical Histor: cardiomyopathy Past Surgical History: Other Additional Past Surgical Histo: cardiac cath Alcohol Use: None Drug Use: Marijuana family hx htn Cardiovascular: CHF, HTN Pulmonary: No pertinent hx, Pulmonary embolus CENTRAL NERVOUS SYSTEM: Other GI: Constipation Heme/Onc: No pertinent hx Hepatobiliary: No pertinent hx Psych: No pertinent hx Musculoskeletal: Other Rheumatologic: No pertinent hx Infectious disease: No pertinent hx Renal/: Other Endocrine: Other Past Surgical History Past Surgical History: Other Family History Family History: Coronary Artery Disease, Hypertension Social History Smoke: No ALCOHOL: none Drugs: Marijuana Current Medications Current Medications Current Medications Aspirin (Children'S Aspirin) 324 mg 1X ONCE PO Last administered on 10/05/18at 23:47; Start 10/05/18 at 23:30; Stop 10/05/18 at 23:31; Status DC Morphine Sulfate (Morphine Sulfate) 2 mg PRN Q15MIN PRN IV/SQ PAIN GREATER THAN 3/10 Last administered on 10/06/18at 07:47; Start 10/05/18 at 23:15; Stop at 23:14 Sodium Chloride 1,000 ml @ 100 mls/hr Q10H IV Last administered on 10/05/18at 23:47; Start 10/05/18 at 23:30; Stop 10/06/18 at 09:29; Status DC Heparin Sodium (Porcine) (Heparin Sodium) 4,000 unit 1X ONCE IV Last administered on 10/06/18at 02:08; Start 10/06/18 at 01:30; Stop 10/06/18 at 01:31 ; Status DC Heparin Sodium/ Dextrose 500 ml @ 0 mls/hr CONT PRN IV SEE I/O RECORD Last administered on 10/06/18at 02:13; Start 10/06/18 at 01:15 Heparin Sodium (Porcine) (Heparin Sodium) 1,700 unit PRN Q6HRS PRN IV FOR UFH LEVEL LESS THAN 0.2; Start 10/06/18 at 01:15 Ondansetron HCl (Zofran) 4 mg PRN Q8HRS PRN IV NAUSEA/VOMITING 1ST CHOICE; Start 10/06/18 at 01:15; Stop 10/07/18 at 01:14 Morphine Sulfate (Morphine Sulfate) 4 mg PRN Q2HR PRN IV SEVERE PAIN; Start at 01:15; Stop 10/07/18 at 01:14 Sodium Chloride 1,000 ml @ 100 mls/hr Q10H IV ; Start 10/06/18 at 01:30; Stop 10/07/18 at 01:29 Nitroglycerin (Nitrostat) 0.4 mg PRN Q5MIN PRN SL CHEST PAIN Last administered on 10/06/18at 07:26; Start 10/06/18 at 01:15; Stop 10/07/18 at 01:14 Info (Anti-Coagulation Monitoring By Pharmacy) 1 each PRN DAILY PRN MC SEE COMMENTS Last administered on 10/06/18at 09:19; Start 10/06/18 at 01:30 Fentanyl Citrate (Fentanyl 2ml Vial) 100 mcg STK-MED ONCE .ROUTE ; Start at 08:09; Stop 10/06/18 at 08:10; Status DC Midazolam HCl (Versed) 2 mg STK-MED ONCE .ROUTE ; Start 10/06/18 at 08:09; Stop 10/06/18 at 08:10; Status DC Lidocaine HCl (Lidocaine 1% 20ml Vial) 20 ml STK-MED ONCE .ROUTE ; Start at 08:11; Stop 10/06/18 at 08:13; Status DC Heparin Sodium/ Sodium Chloride (HEPARIN for ARTERIAL LINE FLUSH) 1,000 unit 1X ONCE IART Last administered on 10/06/18at 08:45; Start 10/06/18 at 08:45; Stop 10/06/18 at 08:46; Status DC Heparin Sodium/ Sodium Chloride (HEPARIN for ARTERIAL LINE FLUSH) 1,000 unit 1X ONCE IART Last administered on 10/06/18at 08:45; Start 10/06/18 at 08:45; Stop 10/06/18 at 08:46; Status DC Midazolam HCl (Versed) 2 mg 1X ONCE IV Last administered on 10/06/18at 08:45; Start 10/06/18 at 08:45; Stop 10/06/18 at 08:46; Status DC Fentanyl Citrate (Fentanyl 2ml Vial) 100 mcg 1X ONCE IV Last administered on at 08:45; Start 10/06/18 at 08:45; Stop 10/06/18 at 08:46; Status DC Iodixanol (Visipaque 320) 100 ml 1X ONCE IART Last administered on 10/06/18at 08:45; Start 10/06/18 at 08:45; Stop 10/06/18 at 08:46; Status DC Lidocaine HCl (Lidocaine 1% 20ml Vial) 20 ml 1X ONCE INJ Last administered on 10/06/18at 08:45; Start 10/06/18 at 08:45; Stop 10/06/18 at 08:46; Status DC Info (CONTRAST GIVEN -- Rx MONITORING) 1 each PRN DAILY PRN MC SEE COMMENTS; Start 10/06/18 at 09:00; Stop 10/08/18 at 08:59 Iodixanol (Visipaque 320) 100 ml STK-MED ONCE .ROUTE ; Start 10/06/18 at 08:54; Stop 10/06/18 at 08:55; Status DC Heparin Sodium/ Sodium Chloride 500 ml @ As Directed STK-MED ONCE .ROUTE ; Start 10/06/18 at 08:54; Stop 10/06/18 at 08:55; Status DC Nitroglycerin (Nitrostat) 0.4 mg PRN Q5MIN PRN SL CHEST PAIN; Start 10/06/18 at 09:15 Active Scripts Active Hydralazine Hcl 25 Mg Tablet 25 Mg PO TID 30 Days Isosorbide Dinitrate 10 Mg Tablet 10 Mg PO TID 30 Days Ventolin Hfa Inhaler (Albuterol Sulfate) 18 Gm Hfa.aer.ad 2 Puff INH Q4HRS Tessalon Perle (Benzonatate) 100 Mg Capsule 1 Cap PO TID Tablet (Pnv Cmb#95/Ferrous Fumarate/Fa) 1 Each Tablet 1 Tab PO DAILY Aspirin Ec (Aspirin) 81 Mg Tablet. 81 Mg PO DAILYWBKFT Reported Coreg (Carvedilol) 6.25 Mg Tablet 6.25 Mg PO BIDWMEALS Lasix (Furosemide) 40 Mg Tablet 1 Tab PO DAILY Potassium Chloride 20 Meq Tablet.er 20 Meq PO DAILY Allergies Allergies: Coded Allergies: lisinopril (Verified Allergy, Severe, Anaphylaxis, 03/22/18) tramadol (Verified Allergy, Severe, Anaphylaxis, 10/04/18) Tolerates morphine ROS Review of System Review of Systems Review of Systems Constitutional: Denies fever or chills [] Respiratory: Complains of exertional shortness of breath [] Cardiovascular: No additional information not addressed in HPI [] GI: Denies abdominal pain, nausea, vomitingor diarrhea [] Integument: Denies rash or skin lesions [] Neurologic: Denies headache, focal weakness or sensory changes [] 14 PT systems were reviewed and found to be within normal limits, except as documented General: YES: Fatigue PSYCHOLOGICAL ROS: No: Anxiety, Behavioral Disorder, Concentration difficultie , Decreased libido, Depression, Disorientation, Hallucinations, Hostility, Irritablity, Memory difficulties, Mood Swings, Obsessive thoughts, Physical abuse, Sexual abuse, Sleep disturbances, Suicidal ideation, Other Eyes: No Blurry vision, No Decreased vision, No Double vision, No Dry eyes, No Excessive tearing, No Eye Pain, No Itchy Eyes, No Loss of vision, No Photophobia , No Scotomata, No Uses contacts, No Uses glasses, No Other ALLERGY AND IMMUNOLOGY: No: Hives, Insect Bite Sensitivity, Itchy/Watery Eyes, Nasal Congestion, Post Nasal Drip, Seasonal Allergies, Other Hematological and Lymphatic: No: Bleeding Problems, Blood Clots, Blood Transfusions, Brusing, Night Sweats, Pallor, Swollen Lymph Nodes, Other ENDOCRINE: No: Breast Changes, Galactorrhea, Hair Pattern Changes, Hot Flashes , Malaise/lethargy, Mood Swings, Palpitations, Polydipsia/polyuria, Skin Changes , Temperature Intolerance, Unexpected Weight Changes, Other Cardiovascular: yes Chest Pain Gastrointestinal: No Nausea, No Vomiting, No Abdominal Pain, No Diarrhea, No Constipation, No Melena, No Hematochezia, No Other Neurological: No Behavorial Changes, No Bowel/Bladder ControlChng, No Confusion , No Dizziness, No Gait Disturbance, No Headaches, No Impaired Coord/balance, No Memory Loss, No Numbness/Tingling, No Seizures, No Speech Problems, No Tremors, No Visual Changes, No Weakness, No Other Physical Exam Physical Exam Physical Exam Physical Exam Constitutional: Well developed, well nourished, no acute distress, non-toxic appearance. [] HENT: Normocephalic, atraumatic, bilateral external ears normal, oropharynx moist, no oral exudates, nose normal. [] Eyes: PERRLA, EOMI, conjunctiva normal, no discharge. [] Neck: Normal range of motion, no tenderness, supple, no stridor. [] Cardiovascular: Regular rate and rhythm. There is reproducible chest wall tenderness in the left sternal border.[] Lungs & Thorax: Bilateral breath sounds clear to auscultation [] Abdomen: Bowel sounds normal, soft, no tenderness. [] Skin: Warm, dry, no erythema, no rash. [] Extremities: No tenderness, no cyanosis, no clubbing, ROM intact, no edema. [] Neurologic: Alert and oriented X 3, no focal deficits noted. [] General: Oriented X3, Cooperative, No acute distress HEENT: PERRLA Lungs: Clear to auscultation Heart: RRR, no thrills Breasts: Not examined Abdomen: Soft Rectal Exam: not examined PELVIC: Examination not indicated Extremities: No cyanosis Skin: No significant lesion Neuro: Normal speech, Cranial nerves 3-12 NL Psych/Mental Status: Mental status NL, Mood NL Vitals Vitals Vital Signs Date Time Temp Pulse Resp B/P (MAP) Pulse Ox O2 Delivery O2 Flow Rate FiO2 10/06/18 09:01 81 13 99 Nasal Cannula 2.0 10/06/18 09:00 117/83 (94) 10/06/18 07:00 98.2 98.2 Labs Labs Laboratory Tests Test 10/05/18 23:30 10/06/18 04:00 10/06/18 07:15 10/06/18 09:30 White Blood Count 7.5 x10^3/uL (4.0-11.0) Red Blood Count 3.89 x10^6/uL (3.50-5.40) Hemoglobin 9.5 g/dL (12.0-15.5) Hematocrit 29.7 % (36.0-47.0) Mean Corpuscular Volume 76 fL (79-100) Mean Corpuscular Hemoglobin 24 pg (25-35) Mean Corpuscular Hemoglobin Concent 32 g/dL (31-37) Red Cell Distribution Width 17.5 % (11.5-14.5) Platelet Count 306 x10^3/uL (140-400) Neutrophils (%) (Auto) 66 % (31-73) Lymphocytes (%) (Auto) 23 % (24-48) Monocytes (%) (Auto) 8 % (0-9) Eosinophils (%) (Auto) 3 % (0-3) Basophils (%) (Auto) 1 % (0-3) Neutrophils # (Auto) 4.9 x10^3uL (1.8-7.7) Lymphocytes # (Auto) 1.7 x10^3/uL (1.0-4.8) Monocytes # (Auto) 0.6 x10^3/uL (0.0-1.1) Eosinophils # (Auto) 0.2 x10^3/uL (0.0-0.7) Basophils # (Auto) 0.1 x10^3/uL (0.0-0.2) Sodium Level 141 mmol/L (136-145) Potassium Level 4.2 mmol/L (3.5-5.1) Chloride Level 105 mmol/L (98-107) Carbon Dioxide Level 24 mmol/L (21-32) Anion Gap 12 (6-14) Blood Urea Nitrogen 21 mg/dL (7-20) Creatinine 0.9 mg/dL (0.6-1.0) Estimated GFR (Cockcroft-Gault) 85.2 BUN/Creatinine Ratio 23 (6-20) Glucose Level 105 mg/dL (70-99) Calcium Level 9.0 mg/dL (8.5-10.1) Magnesium Level 2.1 mg/dL (1.8-2.4) Total Bilirubin 0.4 mg/dL (0.2-1.0) Aspartate Amino Transf (AST/SGOT) 49 U/L (15-37) Alanine Aminotransferase (ALT/SGPT) 31 U/L (14-59) Alkaline Phosphatase 73 U/L (46-116) Troponin I Quantitative 12.984 ng/mL (0.000-0.055) 27.977 ng/mL (0.000-0.055) 29.586 ng/mL (0.000-0.055) UT-Gpu-U-Type Natriuretic Peptide 2677 pg/mL (0-124) Total Protein 6.8 g/dL (6.4-8.2) Albumin 3.2 g/dL (3.4-5.0) Albumin/Globulin Ratio 0.9 (1.0-1.7) Lipase 108 U/L (73-393) Heparin Anti-Xa Act, Unfractionated < 0.10 IU/mL (0.30-0.70) Laboratory Tests Test 10/05/18 23:30 10/06/18 04:00 10/06/18 07:15 10/06/18 09:30 White Blood Count 7.5 x10^3/uL (4.0-11.0) Red Blood Count 3.89 x10^6/uL (3.50-5.40) Hemoglobin 9.5 g/dL (12.0-15.5) Hematocrit 29.7 % (36.0-47.0) Mean Corpuscular Volume 76 fL (79-100) Mean Corpuscular Hemoglobin 24 pg (25-35) Mean Corpuscular Hemoglobin Concent 32 g/dL (31-37) Red Cell Distribution Width 17.5 % (11.5-14.5) Platelet Count 306 x10^3/uL (140-400) Neutrophils (%) (Auto) 66 % (31-73) Lymphocytes (%) (Auto) 23 % (24-48) Monocytes (%) (Auto) 8 % (0-9) Eosinophils (%) (Auto) 3 % (0-3) Basophils (%) (Auto) 1 % (0-3) Neutrophils # (Auto) 4.9 x10^3uL (1.8-7.7) Lymphocytes # (Auto) 1.7 x10^3/uL (1.0-4.8) Monocytes # (Auto) 0.6 x10^3/uL (0.0-1.1) Eosinophils # (Auto) 0.2 x10^3/uL (0.0-0.7) Basophils # (Auto) 0.1 x10^3/uL (0.0-0.2) Sodium Level 141 mmol/L (136-145) Potassium Level 4.2 mmol/L (3.5-5.1) Chloride Level 105 mmol/L (98-107) Carbon Dioxide Level 24 mmol/L (21-32) Anion Gap 12 (6-14) Blood Urea Nitrogen 21 mg/dL (7-20) Creatinine 0.9 mg/dL (0.6-1.0) Estimated GFR (Cockcroft-Gault) 85.2 BUN/Creatinine Ratio 23 (6-20) Glucose Level 105 mg/dL (70-99) Calcium Level 9.0 mg/dL (8.5-10.1) Magnesium Level 2.1 mg/dL (1.8-2.4) Total Bilirubin 0.4 mg/dL (0.2-1.0) Aspartate Amino Transf (AST/SGOT) 49 U/L (15-37) Alanine Aminotransferase (ALT/SGPT) 31 U/L (14-59) Alkaline Phosphatase 73 U/L (46-116) Troponin I Quantitative 12.984 ng/mL (0.000-0.055) 27.977 ng/mL (0.000-0.055) 29.586 ng/mL (0.000-0.055) ER-Hqz-L-Type Natriuretic Peptide 2677 pg/mL (0-124) Total Protein 6.8 g/dL (6.4-8.2) Albumin 3.2 g/dL (3.4-5.0) Albumin/Globulin Ratio 0.9 (1.0-1.7) Lipase 108 U/L (73-393) Heparin Anti-Xa Act, Unfractionated < 0.10 IU/mL (0.30-0.70) Images Images INDICATION The indication(s) include : Acute non-ST elevation myocardial infarction and acute on chronic systolic heart failure. [facility] Clinical Frailty Scale [facility] Clinical Frailty Scale: Mildly Frail Heart Failure Heart Failure: Yes If Yes, Newly Diagnosed: No If Yes, HF Type: Systolic If Yes, NYHA Class: Class III PROCEDURE NARRATIVE After explaining the risks, benefits and alternative options, informed consent was obtained from patient. Patient was brought to the cardiac Supervisor Painting and her right groin was prepped and draped in the usual fashion. 20 mL of 2% lidocaine was infiltrated into the skin and subcutaneous tissues for local anesthesia. Arterial access was obtained in the right common femoral artery and a 6 Bruneian sheath was inserted. 6 Bruneian JL4 and 6 Bruneian JR4 catheters were used to perform selective angiography of the left and right coronary arteries. LVEDP and transaortic gradients remeasured. Left ventriculography was not performed since recent 2-D echo showed LVEF 20-25%. Patient tolerated the procedure well. Hemostasis was achieved using mynx closure device. There were no immediate complications. The following findings were noted. FINDINGS 1. The left main coronary artery arose from the left sinus of Valsalva, gave rise to the left anterior descending and left circumflex arteries and did not show any significant stenosis. 2. 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 There was 99% lesion noted in the very distal/apical segment secondary to either thrombus or spontaneous coronary artery dissection (SCAD). This is new compared to recent cardiac catheterization 1 month ago. 3. The left circumflex artery did not show any significant stenosis. 4. The right coronary artery was a large and dominant vessel arising from the right sinus of Valsalva that did not show any significant stenosis. 5. Left ventricle end-diastolic pressure 24 mmHg. No pullback gradient across the aortic valve. Conclusion No critical lesions needing intervention noted. Patient was found to have myocardial bridging in the distal segment of the left anterior descending artery , described in prior cardiac catheterization. Also seen was 99% lesion in the very distal/apical segment secondary to either thrombus or spontaneous coronary artery dissection (SCAD). This is most probably the culprit lesion for patient' s non-STEMI but is not amenable for percutaneous intervention due to the very distal location of the lesion. Recommendations Optimization of medical therapy for patient's non-STEMI and non-ischemic cardiomyopathy and repeat 2-D echo in 2-3 months to evaluate the need for AICD implantation. VTE Prophylaxis Ordered VTE Prophylaxis Devices: Yes VTE Pharmacological Prophylaxi: Yes Assessment/Plan Assessment/Plan IMPRESSION CHF exacerbation cardiomyopathy, SEVERE Hypertension ELEVATED TROPONIN I There is a new 99% lesion noted in the very distal/apical segment secondary to either thrombus or spontaneous coronary artery dissection (SCAD). This is new compared to recent cardiac catheterization 1 month ago. NSTEMI , embolization likely PLAN: icu, bed EMERGENT CATH Cards FOLLOWING home meds potassium supplements Cardiac diet SHE PLANS FOR btl SOON , NEEDS PCP ADIN cannot afford lifevest BTL soon 38 min cc time BOB FOSTER MD 15, 2019 10:03
[2018-10-06] MEDS: IV NORMAL SALINE 1000ML BAG 1,000 ML IV SCH ×3 (10:17→21:36)
--- NOTE | 2018-10-06 11:08 | NUR ---
Upon entering patient's room at shift change this morning, patient complained of 10/10 chest pain, crushing, radiating across chest, into neck and a headache. VSS stable, heparin gtt at 12 u/hr, trop trending up from 12.984 to 27.977. ALOK Carpenter call lab results into cardiology and orders received while this RN administered nitro tablets and after reassessment pain still 10/10, then morphine. Stat EKG and O2 applied to patient. Consents signed and charted. 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
--- NOTE | 2018-10-06 11:28 | CARD ---
MR#: [id number] Date of Study: 10/06/2018 Ordering Physician: JAIDA KAYE, Referring Physician: MADISON LIM Tech: RT Meño (R) APPROVED REPORT Technologist: RT Meño (R) Nurse: Fariha James RN Procedure(s) performed: Left heart catheterization and selective coronary angiography Moderate sedation: 30 Mins INDICATION The indication(s) include : Acute non-ST elevation myocardial infarction and acute on chronic systoli c heart failure. [facility] Clinical Frailty Scale [facility] Clinical Frailty Scale: Mildly Frail Heart Failure Heart Failure: Yes If Yes, Newly Diagnosed: No If Yes, HF Type: Systolic If Yes, NYHA Class: Class III PROCEDURE NARRATIVE After explaining the risks, benefits and alternative options, informed consent was obtained from deb ent. Patient was brought to the cardiac [employer] Consumer [employer] Vice President and her right groin was prepped and draped in the us ual fashion. 20 mL of 2% lidocaine was infiltrated into the skin and subcutaneous tissues for local a nesthesia. Arterial access was obtained in the right common femoral artery and a 6 Moroccan sheath was inserted. 6 Moroccan JL4 and 6 Moroccan JR4 catheters were used to perform selective angiography of the l eft and right coronary arteries. LVEDP and transaortic gradients remeasured. Left ventriculography wa s not performed since recent 2-D echo showed LVEF 20-25%. Patient tolerated the procedure well. Hemos tasis was achieved using mynx closure device. There were no immediate complications. The following fi ndings were noted. FINDINGS 1. The left main coronary artery arose from the left sinus of Valsalva, gave rise to the left anteri or descending and left circumflex arteries and did not show any significant stenosis. 2. The left anterior descending artery showed myocardial bridging in the distal segment, described i n prior cardiac catheterization. There was 99% lesion noted in the very distal/apical segment seconda ry to either thrombus or spontaneous coronary artery dissection (SCAD). This is new compared to recen t cardiac catheterization 1 month ago. 3. The left circumflex artery did not show any significant stenosis. 4. The right coronary artery was a large and dominant vessel arising from the right sinus of Valsalv a that did not show any significant stenosis. 5. Left ventricle end-diastolic pressure 24 mmHg. No pullback gradient across the aortic valve. Conclusion No critical lesions needing intervention noted. Patient was found to have myocardial bridging in the distal segment of the left anterior descending artery, described in prior cardiac catheterization. Al so seen was 99% lesion in the very distal/apical segment secondary to either thrombus or spontaneous coronary artery dissection (SCAD). This is most probably the culprit lesion for patient's non-STEMI b ut is not amenable for percutaneous intervention due to the very distal location of the lesion. Recommendations Optimization of medical therapy for patient's non-STEMI and non-ischemic cardiomyopathy and repeat 2- D echo in 2-3 months to evaluate the need for AICD implantation. Signed by : Jaida Kaye, Electronically Approved : 10/06/2018 11:28:32
[2018-10-06] MEDS: MORPHINE SULFATE 2 MG/ML VIAL. IV PRN ×2 (15:31→19:58)
--- NOTE | 2018-10-06 19:49 | PDOC ---
Provider Note Provider Note Patient with post cardiomyopathy who was just discharged from [facility] ( please see previous notes) after treatment for NSTEMI thought to be demand ischemia and acute on chronic systolic HF presented back with chest pain and found to have worsening troponin levels c/w acute nstemi. We will proceed with cardiac cath and possible PCI/stent. Risks and benefits explained. JAIDA JUNE MD Oct 06, 2018 19:49
[2018-10-06] MEDS: ACETAMINOPHEN 325 MG TABLET. PO PRN (21:35)
[2018-10-07] VITALS (24 sets, daily range): BP systolic 96–147; BP diastolic 59–92
[2018-10-07 04:03] LABS: BASO # 0.1 x10^3/uL (0.0-0.2); BASO % 1 % (0-3); EOS # 0.2 x10^3/uL (0.0-0.7); EOS % 4 % (0-3); HEMATOCRIT 28.3 % (36.0-47.0); HEMOGLOBIN 8.8 g/dL (12.0-15.5); LYMPH # 2.2 x10^3/uL (1.0-4.8); LYMPH % 43 % (24-48); MEAN CORPUSCULAR HEMOGLOBIN 24 pg (25-35); MEAN CORPUSCULAR HGB CONC 31 g/dL (31-37); MEAN CORPUSCULAR VOLUME 77 fL (79-100); MONO # 0.5 x10^3/uL (0.0-1.1); MONO % 9 % (0-9); NEUT # 2.3 x10^3uL (1.8-7.7); NEUT % 43 % (31-73); PLATELET COUNT 253 x10^3/uL (140-400); RED BLOOD COUNT 3.65 x10^6/uL (3.50-5.40); RED CELL DISTRIBUTION WIDTH 17.7 % (11.5-14.5); WHITE BLOOD COUNT 5.2 x10^3/uL (4.0-11.0)
[2018-10-07 04:22] LABS: CALCIUM 8.1 mg/dL (8.5-10.1); CREATININE 0.8 mg/dL (0.6-1.0); GFR 97.7; POTASSIUM 3.8 mmol/L (3.5-5.1)
[2018-10-07] MEDS: ANTI-COAG MONITOR BY PHARMACY. MC PRN (07:23)
--- NOTE | 2018-10-07 09:02 | PDOC ---
CARDIOLOGY PROGRESS NOTE SUBJECTIVE: Continues to feel chest pain, also noted to have dyspnea. OBJECTIVE: Vital SIgns: VSS: HR 90's, BP 115/82, AF, RR 18 I & O Not accurate Objective: + rales at the lung bases. Elevated neck veins. No edema. Tachycardic. DIAGNOSTIC TESTING: Hgb 8.8 Cr 1.2 ASSESSMENT: 1. NICM, decompensated HF PLAN: 1. Stop hep gtt 2. Start aSA 81mg daily 3. Start Toprol XL 12.5mg dialy 4. Lasix 40mg IVP now. Supportive care. Will f/u in a.m. Needs to be 2L negative by GEOFF Casey MD Oct 07, 2018 09:02
--- NOTE | 2018-10-07 09:05 | PDOC ---
PROGRESS NOTES History of Present Illness History of Present Illness Assessment/Plan Assessment/Plan IMPRESSION CHF exacerbation cardiomyopathy, SEVERE Hypertension ELEVATED TROPONIN I There is a new 99% lesion noted in the very distal/apical segment secondary to either thrombus or spontaneous coronary artery dissection (SCAD). This is new compared to recent cardiac catheterization 1 month ago. NSTEMI , embolization likely PLAN: icu, bed EMERGENT CATH Cards FOLLOWING home meds potassium supplements Cardiac diet SHE PLANS FOR btl SOON , NEEDS PCP ADIN cannot afford [facility] BTL soon URINE DRUG SCREEN 33 min cc time Vitals Vitals Vital Signs Date Time Temp Pulse Resp B/P (MAP) Pulse Ox O2 Delivery O2 Flow Rate FiO2 10/07/18 08:00 99 10/07/18 08:00 Room Air 10/07/18 08:00 90 28 115/92 (100) 10/07/18 07:00 98.7 98.7 10/06/18 19:58 2.0 Physical Exam General: Oriented X3, Cooperative, No acute distress Lungs: Clear Abdomen: Soft Extremities: No cyanosis Skin: No significant lesion Labs LABS Laboratory Tests Test 10/06/18 09:30 10/06/18 16:05 10/06/18 22:40 10/07/18 03:30 Heparin Anti-Xa Act, Unfractionated < 0.10 IU/mL (0.30-0.70) 0.40 IU/mL (0.30-0.70) 0.31 IU/mL (0.30-0.70) 0.24 IU/mL (0.30-0.70) White Blood Count 5.2 x10^3/uL (4.0-11.0) Red Blood Count 3.65 x10^6/uL (3.50-5.40) Hemoglobin 8.8 g/dL (12.0-15.5) Hematocrit 28.3 % (36.0-47.0) Mean Corpuscular Volume 77 fL (79-100) Mean Corpuscular Hemoglobin 24 pg (25-35) Mean Corpuscular Hemoglobin Concent 31 g/dL (31-37) Red Cell Distribution Width 17.7 % (11.5-14.5) Platelet Count 253 x10^3/uL (140-400) Neutrophils (%) (Auto) 43 % (31-73) Lymphocytes (%) (Auto) 43 % (24-48) Monocytes (%) (Auto) 9 % (0-9) Eosinophils (%) (Auto) 4 % (0-3) Basophils (%) (Auto) 1 % (0-3) Neutrophils # (Auto) 2.3 x10^3uL (1.8-7.7) Lymphocytes # (Auto) 2.2 x10^3/uL (1.0-4.8) Monocytes # (Auto) 0.5 x10^3/uL (0.0-1.1) Eosinophils # (Auto) 0.2 x10^3/uL (0.0-0.7) Basophils # (Auto) 0.1 x10^3/uL (0.0-0.2) Sodium Level 138 mmol/L (136-145) Potassium Level 3.8 mmol/L (3.5-5.1) Chloride Level 107 mmol/L (98-107) Carbon Dioxide Level 21 mmol/L (21-32) Anion Gap 10 (6-14) Blood Urea Nitrogen 12 mg/dL (7-20) Creatinine 0.8 mg/dL (0.6-1.0) Estimated GFR (Cockcroft-Gault) 97.7 Glucose Level 97 mg/dL (70-99) Calcium Level 8.1 mg/dL (8.5-10.1) Comment Review of Relevant I have reviewed the following items cholo (where applicable) has been applied. Labs Laboratory Tests Test 10/05/18 23:30 10/06/18 03:15 10/06/18 04:00 10/06/18 07:15 White Blood Count 7.5 x10^3/uL (4.0-11.0) Red Blood Count 3.89 x10^6/uL (3.50-5.40) Hemoglobin 9.5 g/dL (12.0-15.5) Hematocrit 29.7 % (36.0-47.0) Mean Corpuscular Volume 76 fL (79-100) Mean Corpuscular Hemoglobin 24 pg (25-35) Mean Corpuscular Hemoglobin Concent 32 g/dL (31-37) Red Cell Distribution Width 17.5 % (11.5-14.5) Platelet Count 306 x10^3/uL (140-400) Neutrophils (%) (Auto) 66 % (31-73) Lymphocytes (%) (Auto) 23 % (24-48) Monocytes (%) (Auto) 8 % (0-9) Eosinophils (%) (Auto) 3 % (0-3) Basophils (%) (Auto) 1 % (0-3) Neutrophils # (Auto) 4.9 x10^3uL (1.8-7.7) Lymphocytes # (Auto) 1.7 x10^3/uL (1.0-4.8) Monocytes # (Auto) 0.6 x10^3/uL (0.0-1.1) Eosinophils # (Auto) 0.2 x10^3/uL (0.0-0.7) Basophils # (Auto) 0.1 x10^3/uL (0.0-0.2) Sodium Level 141 mmol/L (136-145) Potassium Level 4.2 mmol/L (3.5-5.1) Chloride Level 105 mmol/L (98-107) Carbon Dioxide Level 24 mmol/L (21-32) Anion Gap 12 (6-14) Blood Urea Nitrogen 21 mg/dL (7-20) Creatinine 0.9 mg/dL (0.6-1.0) Estimated GFR (Cockcroft-Gault) 85.2 BUN/Creatinine Ratio 23 (6-20) Glucose Level 105 mg/dL (70-99) Calcium Level 9.0 mg/dL (8.5-10.1) Magnesium Level 2.1 mg/dL (1.8-2.4) Total Bilirubin 0.4 mg/dL (0.2-1.0) Aspartate Amino Transf (AST/SGOT) 49 U/L (15-37) Alanine Aminotransferase (ALT/SGPT) 31 U/L (14-59) Alkaline Phosphatase 73 U/L (46-116) Troponin I Quantitative 12.984 ng/mL (0.000-0.055) 27.977 ng/mL (0.000-0.055) 29.586 ng/mL (0.000-0.055) FE-Woo-V-Type Natriuretic Peptide 2677 pg/mL (0-124) Total Protein 6.8 g/dL (6.4-8.2) Albumin 3.2 g/dL (3.4-5.0) Albumin/Globulin Ratio 0.9 (1.0-1.7) Lipase 108 U/L (73-393) Nasal Screen MRSA (PCR) Negative (Negative) Test 10/06/18 09:30 10/06/18 16:05 10/06/18 22:40 10/07/18 03:30 Heparin Anti-Xa Act, Unfractionated < 0.10 IU/mL (0.30-0.70) 0.40 IU/mL (0.30-0.70) 0.31 IU/mL (0.30-0.70) 0.24 IU/mL (0.30-0.70) White Blood Count 5.2 x10^3/uL (4.0-11.0) Red Blood Count 3.65 x10^6/uL (3.50-5.40) Hemoglobin 8.8 g/dL (12.0-15.5) Hematocrit 28.3 % (36.0-47.0) Mean Corpuscular Volume 77 fL (79-100) Mean Corpuscular Hemoglobin 24 pg (25-35) Mean Corpuscular Hemoglobin Concent 31 g/dL (31-37) Red Cell Distribution Width 17.7 % (11.5-14.5) Platelet Count 253 x10^3/uL (140-400) Neutrophils (%) (Auto) 43 % (31-73) Lymphocytes (%) (Auto) 43 % (24-48) Monocytes (%) (Auto) 9 % (0-9) Eosinophils (%) (Auto) 4 % (0-3) Basophils (%) (Auto) 1 % (0-3) Neutrophils # (Auto) 2.3 x10^3uL (1.8-7.7) Lymphocytes # (Auto) 2.2 x10^3/uL (1.0-4.8) Monocytes # (Auto) 0.5 x10^3/uL (0.0-1.1) Eosinophils # (Auto) 0.2 x10^3/uL (0.0-0.7) Basophils # (Auto) 0.1 x10^3/uL (0.0-0.2) Sodium Level 138 mmol/L (136-145) Potassium Level 3.8 mmol/L (3.5-5.1) Chloride Level 107 mmol/L (98-107) Carbon Dioxide Level 21 mmol/L (21-32) Anion Gap 10 (6-14) Blood Urea Nitrogen 12 mg/dL (7-20) Creatinine 0.8 mg/dL (0.6-1.0) Estimated GFR (Cockcroft-Gault) 97.7 Glucose Level 97 mg/dL (70-99) Calcium Level 8.1 mg/dL (8.5-10.1) Laboratory Tests Test 10/06/18 09:30 10/06/18 16:05 10/06/18 22:40 10/07/18 03:30 Heparin Anti-Xa Act, Unfractionated < 0.10 IU/mL (0.30-0.70) 0.40 IU/mL (0.30-0.70) 0.31 IU/mL (0.30-0.70) 0.24 IU/mL (0.30-0.70) White Blood Count 5.2 x10^3/uL (4.0-11.0) Red Blood Count 3.65 x10^6/uL (3.50-5.40) Hemoglobin 8.8 g/dL (12.0-15.5) Hematocrit 28.3 % (36.0-47.0) Mean Corpuscular Volume 77 fL (79-100) Mean Corpuscular Hemoglobin 24 pg (25-35) Mean Corpuscular Hemoglobin Concent 31 g/dL (31-37) Red Cell Distribution Width 17.7 % (11.5-14.5) Platelet Count 253 x10^3/uL (140-400) Neutrophils (%) (Auto) 43 % (31-73) Lymphocytes (%) (Auto) 43 % (24-48) Monocytes (%) (Auto) 9 % (0-9) Eosinophils (%) (Auto) 4 % (0-3) Basophils (%) (Auto) 1 % (0-3) Neutrophils # (Auto) 2.3 x10^3uL (1.8-7.7) Lymphocytes # (Auto) 2.2 x10^3/uL (1.0-4.8) Monocytes # (Auto) 0.5 x10^3/uL (0.0-1.1) Eosinophils # (Auto) 0.2 x10^3/uL (0.0-0.7) Basophils # (Auto) 0.1 x10^3/uL (0.0-0.2) Sodium Level 138 mmol/L (136-145) Potassium Level 3.8 mmol/L (3.5-5.1) Chloride Level 107 mmol/L (98-107) Carbon Dioxide Level 21 mmol/L (21-32) Anion Gap 10 (6-14) Blood Urea Nitrogen 12 mg/dL (7-20) Creatinine 0.8 mg/dL (0.6-1.0) Estimated GFR (Cockcroft-Gault) 97.7 Glucose Level 97 mg/dL (70-99) Calcium Level 8.1 mg/dL (8.5-10.1) Medications Current Medications Aspirin (Children'S Aspirin) 324 mg 1X ONCE PO Last administered on 10/05/18 23:47; Start 10/05/18 at 23:30; Stop 10/05/18 at 23:31; Status DC Morphine Sulfate (Morphine Sulfate) 2 mg PRN Q15MIN PRN IV/SQ PAIN GREATER THAN 3/10 Last administered on 10/06/18 07:47; Start 10/05/18 at 23:15; Stop at 15:26; Status DC Sodium Chloride 1,000 ml @ 100 mls/hr Q10H IV Last administered on 10/05/18 23:47; Start 10/05/18 at 23:30; Stop 10/06/18 at 09:29; Status DC Heparin Sodium (Porcine) (Heparin Sodium) 4,000 unit 1X ONCE IV Last administered on 10/06/18at 02:08; Start 10/06/18 at 01:30; Stop 10/06/18 at 01:31 ; Status DC Heparin Sodium/ Dextrose 500 ml @ 0 mls/hr CONT PRN IV SEE I/O RECORD Last administered on 10/06/18at 23:47; Start 10/06/18 at 01:15 Heparin Sodium (Porcine) (Heparin Sodium) 1,700 unit PRN Q6HRS PRN IV FOR UFH LEVEL LESS THAN 0.2 Last administered on 10/06/18at 10:19; Start 10/06/18 at 01: 15 Ondansetron HCl (Zofran) 4 mg PRN Q8HRS PRN IV NAUSEA/VOMITING 1ST CHOICE; Start 10/06/18 at 01:15; Stop 10/07/18 at 01:14; Status DC Morphine Sulfate (Morphine Sulfate) 4 mg PRN Q2HR PRN IV SEVERE PAIN; Start at 01:15; Stop 10/06/18 at 15:26; Status DC Sodium Chloride 1,000 ml @ 100 mls/hr Q10H IV Last administered on 10/06/18at 21:36; Start 10/06/18 at 01:30; Stop 10/07/18 at 01:29; Status DC Nitroglycerin (Nitrostat) 0.4 mg PRN Q5MIN PRN SL CHEST PAIN Last administered on 10/06/18at 07:26; Start 10/06/18 at 01:15; Stop 10/07/18 at 01:14; Status DC Info (Anti-Coagulation Monitoring By Pharmacy) 1 each PRN DAILY PRN MC SEE COMMENTS Last administered on 10/07/18at 07:23; Start 10/06/18 at 01:30 Fentanyl Citrate (Fentanyl 2ml Vial) 100 mcg STK-MED ONCE .ROUTE ; Start at 08:09; Stop 10/06/18 at 08:10; Status DC Midazolam HCl (Versed) 2 mg STK-MED ONCE .ROUTE ; Start 10/06/18 at 08:09; Stop 10/06/18 at 08:10; Status DC Lidocaine HCl (Lidocaine 1% 20ml Vial) 20 ml STK-MED ONCE .ROUTE ; Start at 08:11; Stop 10/06/18 at 08:13; Status DC Heparin Sodium/ Sodium Chloride (HEPARIN for ARTERIAL LINE FLUSH) 1,000 unit 1X ONCE IART Last administered on 10/06/18at 08:45; Start 10/06/18 at 08:45; Stop 10/06/18 at 08:46; Status DC Heparin Sodium/ Sodium Chloride (HEPARIN for ARTERIAL LINE FLUSH) 1,000 unit 1X ONCE IART Last administered on 10/06/18at 08:45; Start 10/06/18 at 08:45; Stop 10/06/18 at 08:46; Status DC Midazolam HCl (Versed) 2 mg 1X ONCE IV Last administered on 10/06/18at 08:45; Start 10/06/18 at 08:45; Stop 10/06/18 at 08:46; Status DC Fentanyl Citrate (Fentanyl 2ml Vial) 100 mcg 1X ONCE IV Last administered on at 08:45; Start 10/06/18 at 08:45; Stop 10/06/18 at 08:46; Status DC Iodixanol (Visipaque 320) 100 ml 1X ONCE IART Last administered on 10/06/18at 08:45; Start 10/06/18 at 08:45; Stop 10/06/18 at 08:46; Status DC Lidocaine HCl (Lidocaine 1% 20ml Vial) 20 ml 1X ONCE INJ Last administered on 10/06/18at 08:45; Start 10/06/18 at 08:45; Stop 10/06/18 at 08:46; Status DC Info (CONTRAST GIVEN -- Rx MONITORING) 1 each PRN DAILY PRN MC SEE COMMENTS; Start 10/06/18 at 09:00; Stop 10/08/18 at 08:59 Iodixanol (Visipaque 320) 100 ml STK-MED ONCE .ROUTE ; Start 10/06/18 at 08:54; Stop 10/06/18 at 08:55; Status DC Heparin Sodium/ Sodium Chloride 500 ml @ As Directed STK-MED ONCE .ROUTE ; Start 10/06/18 at 08:54; Stop 10/06/18 at 08:55; Status DC Nitroglycerin (Nitrostat) 0.4 mg PRN Q5MIN PRN SL CHEST PAIN; Start 10/06/18 at 09:15 Morphine Sulfate (Morphine Sulfate) 2 mg PRN Q2HR PRN IV PAIN Last administered on 10/06/18at 19:58; Start 10/06/18 at 15:30 Acetaminophen (Tylenol) 650 mg PRN Q6HRS PRN PO MILD PAIN Last administered on 10/06/18at 21:35; Start 10/06/18 at 21:15 Metoprolol Succinate (Toprol Xl) 12.5 mg DAILY PO ; Start 10/07/18 at 09:00; Status UNV Furosemide (Lasix) 40 mg 1X ONCE IVP ; Start 10/07/18 at 09:00; Stop 10/07/18 at 09:01; Status UNV Lisinopril (Prinivil) 2.5 mg DAILY PO ; Start 10/08/18 at 09:00; Stop 10/08/18 at 09:00; Status DC Aspirin (Ecotrin) 81 mg DAILYWBKFT PO ; Start 10/08/18 at 08:00; Status UNV Hydralazine HCl (Apresoline) 10 mg TID PO ; Start 10/07/18 at 14:00; Status UNV Isosorbide Dinitrate (Isordil) 10 mg TID PO ; Start 10/07/18 at 14:00; Status UNV Active Scripts Active Hydralazine Hcl 25 Mg Tablet 25 Mg PO TID 30 Days Isosorbide Dinitrate 10 Mg Tablet 10 Mg PO TID 30 Days Ventolin Hfa Inhaler (Albuterol Sulfate) 18 Gm Hfa.aer.ad 2 Puff INH Q4HRS Tessalon Perle (Benzonatate) 100 Mg Capsule 1 Cap PO TID Tablet (Pnv Cmb#95/Ferrous Fumarate/Fa) 1 Each Tablet 1 Tab PO DAILY Aspirin Ec (Aspirin) 81 Mg Tablet.dr 81 Mg PO DAILYWBKFT Reported Coreg (Carvedilol) 6.25 Mg Tablet 6.25 Mg PO BIDWMEALS Lasix (Furosemide) 40 Mg Tablet 1 Tab PO DAILY Potassium Chloride 20 Meq Tablet.er 20 Meq PO DAILY Vitals/I & O Vital Sign - Last 24 Hours 10/06/18 10/06/18 10/06/18 10/06/18 09:15 09:30 09:45 10:00 Pulse 80 78 80 80 Resp 8 17 17 18 B/P (MAP) 117/83 (94) 113/80 (91) 110/85 (93) 113/83 (93) Pulse Ox 97 96 97 97 O2 Delivery Room Air Room Air Room Air Room Air 10/06/18 10/06/18 10/06/18 10/06/18 10:15 10:45 11:00 11:30 Temp 98.0 98.0 Pulse 82 84 84 90 Resp 14 15 14 15 B/P (MAP) 118/85 (96) 116/90 (99) 118/89 (99) 112/90 (97) Pulse Ox 100 99 98 98 O2 Delivery Room Air Room Air Room Air Room Air 10/06/18 10/06/18 10/06/18 10/06/18 12:00 13:00 14:00 15:00 Temp 98.7 98.7 Pulse 86 97 94 90 Resp 20 22 20 B/P (MAP) 117/85 (96) 125/87 (100) 125/87 (100) 117/76 (90) Pulse Ox 99 100 100 100 O2 Delivery Room Air Room Air Room Air Room Air O2 Flow Rate 2.0 10/06/18 10/06/18 10/06/18 10/06/18 15:31 16:00 16:01 17:00 Pulse 90 86 Resp 11 19 B/P (MAP) 111/85 (94) 119/80 (93) Pulse Ox 100 98 99 O2 Delivery Room Air Room Air Room Air O2 Flow Rate 2.0 10/06/18 10/06/18 10/06/18 10/06/18 18:00 19:00 19:58 20:00 Pulse 107 100 110 Resp 22 B/P (MAP) 119/80 (93) 121/89 (100) 120/90 (100) Pulse Ox 99 99 99 99 O2 Delivery Room Air Room Air Room Air Room Air O2 Flow Rate 2.0 10/06/18 10/06/18 10/06/18 10/06/18 20:28 21:00 22:00 23:00 Temp 99.2 99.2 Pulse 104 99 93 Resp 18 B/P (MAP) 127/91 (103) 119/77 (91) 118/83 (95) Pulse Ox 100 99 94 93 O2 Delivery Nasal Cannula Room Air Room Air Room Air 10/06/18 10/07/18 10/07/18 10/07/18 23:59 01:00 02:00 03:00 Temp 99.0 99.0 Pulse 91 93 87 87 Resp 18 17 17 17 B/P (MAP) 111/83 (92) 112/70 (84) 109/76 (87) 108/76 (87) Pulse Ox 93 93 96 97 O2 Delivery Room Air Room Air Room Air Room Air 10/07/18 10/07/18 10/07/18 10/07/18 04:00 05:00 06:00 07:00 Temp 98.6 98.7 98.6 98.7 Pulse 83 84 82 92 Resp 17 17 14 B/P (MAP) 98/78 (85) 123/92 (102) 147/86 (106) 119/91 (100) Pulse Ox 98 100 100 97 O2 Delivery Room Air Room Air Room Air Room Air 10/07/18 10/07/18 10/07/18 08:00 08:00 08:00 Pulse 90 Resp 28 B/P (MAP) 115/92 (100) Pulse Ox 99 O2 Delivery Room Air Room Air Intake and Output 10/06/18 10/06/18 10/07/18 14:59 22:59 06:59 Intake Total 1790 ml 2197 ml 265 ml Output Total 200 ml 0 ml 1 ml Balance 1590 ml 2197 ml 264 ml BOB FOSTER MD Oct 07, 2018 09:05
[2018-10-07] MEDS: ISOSORBIDE DINITRATE 10 MG TABLET. PO SCH ×3 (09:29→20:28)
[2018-10-07] MEDS: METOPROLOL SUCC 24HR ER 25 MG TAB.ER.24H. PO SCH (09:30)
[2018-10-07] MEDS: hydrALAZINE 10 MG TABLET PO SCH ×3 (09:30→20:29)
[2018-10-07] MEDS ORDERED: FUROSEMIDE 40 MG/4 ML VIAL. IVP ONE (09:30)
[2018-10-07] MEDS: ASPIRIN ENTERIC COATED 81 MG TABLET.DR. PO SCH (09:30)
--- NOTE | 2018-10-07 14:05 | NUR ---
FACULTY CO-SIGN I have reviewed the documentation by [facility] nursing aide[facility]: Addendum: 10/07/18 at 1406 by GRAHAM MERCER RN Amended: Links added.
[2018-10-07 16:01] LABS: BARBITURATES NEG (NEG); BENZODIAZEPINES NEG (NEG); CANNABINOIDS NEG (NEG); COCAINE NEG (NEG); METHADONE NEG (NEG); OPIATES NEG (NEG); PHENCYCLIDINE NEG (NEG)
[2018-10-07 16:03] LABS: AMPHETAMINE/METHAMPHETAMINE NEG (NEG)
[2018-10-07] MEDS: ACETAMINOPHEN 325 MG TABLET. PO PRN (16:23)
[2018-10-08] VITALS (13 sets, daily range): BP systolic 98–122; BP diastolic 65–84
[2018-10-08] MEDS: ASPIRIN ENTERIC COATED 81 MG TABLET.DR. PO SCH (08:57)
[2018-10-08] MEDS: hydrALAZINE 10 MG TABLET PO SCH ×2 (08:57→14:32)
[2018-10-08] MEDS: ISOSORBIDE DINITRATE 10 MG TABLET. PO SCH ×2 (08:57→14:32)
[2018-10-08] MEDS: METOPROLOL SUCC 24HR ER 25 MG TAB.ER.24H. PO SCH (08:58)
[2018-10-08] MEDS ORDERED: LISINOPRIL 5 MG TABLET. PO SCH (09:00)
--- NOTE | 2018-10-08 11:10 | PDOC ---
PROGRESS NOTES History of Present Illness History of Present Illness Assessment/Plan Assessment/Plan IMPRESSION CHF exacerbation cardiomyopathy, SEVERE Hypertension ELEVATED TROPONIN I There is a new 99% lesion noted in the very distal/apical segment secondary to either thrombus or spontaneous coronary artery dissection (SCAD). This is new compared to recent cardiac catheterization 1 month ago. NSTEMI , embolization likely PLAN: icu, bed cont EMERGENT CATH REVIEWED Cards FOLLOWING home meds potassium supplements Cardiac diet SHE PLANS FOR btl SOON , //NEEDS PCP ADIN!!, APPLYING FOR DISABILITY cannot afford lifevest BTL soon URINE DRUG SCREEN NEG LONG DISCUSSION RE NEED FOR CLOSE WATCH OF CRITICAL ILLNESS 38 min cc time HIGH RISK PT FOR RE-ADMIT, Cardiac fx severely compromised, pt insists on going home today TROPONIN I TRENDING DOWN Vitals Vitals Vital Signs Date Time Temp Pulse Resp B/P (MAP) Pulse Ox O2 Delivery O2 Flow Rate FiO2 10/08/18 10:00 81 19 98/66 (77) 100 Room Air 10/08/18 08:00 98.1 98.1 10/08/18 07:55 2.0 Physical Exam General: Alert, Oriented X3, Cooperative, No acute distress Heart: Regular rate Lungs: Clear Abdomen: Normal bowel sounds, Soft Extremities: No cyanosis Skin: No rashes, No significant lesion Labs LABS Laboratory Tests Test 10/07/18 15:10 Urine Opiates Screen Neg (NEG) Urine Methadone Screen Neg (NEG) Urine Barbiturates Neg (NEG) Urine Phencyclidine Screen Neg (NEG) Urine Amphetamine/Methamphetamine Neg (NEG) Urine Benzodiazepines Screen Neg (NEG) Urine Cocaine Screen Neg (NEG) Urine Cannabinoids Screen Neg (NEG) Urine Ethyl Alcohol Neg (NEG) Comment Review of Relevant I have reviewed the following items cholo (where applicable) has been applied. Labs Laboratory Tests Test 10/06/18 16:05 10/06/18 22:40 10/07/18 03:30 10/07/18 15:10 Heparin Anti-Xa Act, Unfractionated 0.40 IU/mL (0.30-0.70) 0.31 IU/mL (0.30-0.70) 0.24 IU/mL (0.30-0.70) White Blood Count 5.2 x10^3/uL (4.0-11.0) Red Blood Count 3.65 x10^6/uL (3.50-5.40) Hemoglobin 8.8 g/dL (12.0-15.5) Hematocrit 28.3 % (36.0-47.0) Mean Corpuscular Volume 77 fL (79-100) Mean Corpuscular Hemoglobin 24 pg (25-35) Mean Corpuscular Hemoglobin Concent 31 g/dL (31-37) Red Cell Distribution Width 17.7 % (11.5-14.5) Platelet Count 253 x10^3/uL (140-400) Neutrophils (%) (Auto) 43 % (31-73) Lymphocytes (%) (Auto) 43 % (24-48) Monocytes (%) (Auto) 9 % (0-9) Eosinophils (%) (Auto) 4 % (0-3) Basophils (%) (Auto) 1 % (0-3) Neutrophils # (Auto) 2.3 x10^3uL (1.8-7.7) Lymphocytes # (Auto) 2.2 x10^3/uL (1.0-4.8) Monocytes # (Auto) 0.5 x10^3/uL (0.0-1.1) Eosinophils # (Auto) 0.2 x10^3/uL (0.0-0.7) Basophils # (Auto) 0.1 x10^3/uL (0.0-0.2) Sodium Level 138 mmol/L (136-145) Potassium Level 3.8 mmol/L (3.5-5.1) Chloride Level 107 mmol/L (98-107) Carbon Dioxide Level 21 mmol/L (21-32) Anion Gap 10 (6-14) Blood Urea Nitrogen 12 mg/dL (7-20) Creatinine 0.8 mg/dL (0.6-1.0) Estimated GFR (Cockcroft-Gault) 97.7 Glucose Level 97 mg/dL (70-99) Calcium Level 8.1 mg/dL (8.5-10.1) Urine Opiates Screen Neg (NEG) Urine Methadone Screen Neg (NEG) Urine Barbiturates Neg (NEG) Urine Phencyclidine Screen Neg (NEG) Urine Amphetamine/Methamphetamine Neg (NEG) Urine Benzodiazepines Screen Neg (NEG) Urine Cocaine Screen Neg (NEG) Urine Cannabinoids Screen Neg (NEG) Urine Ethyl Alcohol Neg (NEG) Laboratory Tests Test 10/07/18 15:10 Urine Opiates Screen Neg (NEG) Urine Methadone Screen Neg (NEG) Urine Barbiturates Neg (NEG) Urine Phencyclidine Screen Neg (NEG) Urine Amphetamine/Methamphetamine Neg (NEG) Urine Benzodiazepines Screen Neg (NEG) Urine Cocaine Screen Neg (NEG) Urine Cannabinoids Screen Neg (NEG) Urine Ethyl Alcohol Neg (NEG) Medications Current Medications Aspirin (Children'S Aspirin) 324 mg 1X ONCE PO Last administered on 10/05/18at 23:47; Start 10/05/18 at 23:30; Stop 10/05/18 at 23:31; Status DC Morphine Sulfate (Morphine Sulfate) 2 mg PRN Q15MIN PRN IV/SQ PAIN GREATER THAN 3/10 Last administered on 10/06/18at 07:47; Start 10/05/18 at 23:15; Stop at 15:26; Status DC Sodium Chloride 1,000 ml @ 100 mls/hr Q10H IV Last administered on 10/05/18at 23:47; Start 10/05/18 at 23:30; Stop 10/06/18 at 09:29; Status DC Heparin Sodium (Porcine) (Heparin Sodium) 4,000 unit 1X ONCE IV Last administered on 10/06/18at 02:08; Start 10/06/18 at 01:30; Stop 10/06/18 at 01:31 ; Status DC Heparin Sodium/ Dextrose 500 ml @ 0 mls/hr CONT PRN IV SEE I/O RECORD Last administered on 10/06/18at 23:47; Start 10/06/18 at 01:15; Stop 10/07/18 at 14:40 ; Status DC Heparin Sodium (Porcine) (Heparin Sodium) 1,700 unit PRN Q6HRS PRN IV FOR UFH LEVEL LESS THAN 0.2 Last administered on 10/06/18at 10:19; Start 10/06/18 at 01: 15; Stop 10/07/18 at 14:40; Status DC Ondansetron HCl (Zofran) 4 mg PRN Q8HRS PRN IV NAUSEA/VOMITING 1ST CHOICE; Start 10/06/18 at 01:15; Stop 10/07/18 at 01:14; Status DC Morphine Sulfate (Morphine Sulfate) 4 mg PRN Q2HR PRN IV SEVERE PAIN; Start at 01:15; Stop 10/06/18 at 15:26; Status DC Sodium Chloride 1,000 ml @ 100 mls/hr Q10H IV Last administered on 10/06/18at 21:36; Start 10/06/18 at 01:30; Stop 10/07/18 at 01:29; Status DC Nitroglycerin (Nitrostat) 0.4 mg PRN Q5MIN PRN SL CHEST PAIN Last administered on 10/06/18at 07:26; Start 10/06/18 at 01:15; Stop 10/07/18 at 01:14; Status DC Info (Anti-Coagulation Monitoring By Pharmacy) 1 each PRN DAILY PRN MC SEE COMMENTS Last administered on 10/07/18at 07:23; Start 10/06/18 at 01:30; Stop at 15:11; Status DC Fentanyl Citrate (Fentanyl 2ml Vial) 100 mcg STK-MED ONCE .ROUTE ; Start at 08:09; Stop 10/06/18 at 08:10; Status DC Midazolam HCl (Versed) 2 mg STK-MED ONCE .ROUTE ; Start 10/06/18 at 08:09; Stop 10/06/18 at 08:10; Status DC Lidocaine HCl (Lidocaine 1% 20ml Vial) 20 ml STK-MED ONCE .ROUTE ; Start at 08:11; Stop 10/06/18 at 08:13; Status DC Heparin Sodium/ Sodium Chloride (HEPARIN for ARTERIAL LINE FLUSH) 1,000 unit 1X ONCE IART Last administered on 10/06/18at 08:45; Start 10/06/18 at 08:45; Stop 10/06/18 at 08:46; Status DC Heparin Sodium/ Sodium Chloride (HEPARIN for ARTERIAL LINE FLUSH) 1,000 unit 1X ONCE IART Last administered on 10/06/18at 08:45; Start 10/06/18 at 08:45; Stop 10/06/18 at 08:46; Status DC Midazolam HCl (Versed) 2 mg 1X ONCE IV Last administered on 10/06/18at 08:45; Start 10/06/18 at 08:45; Stop 10/06/18 at 08:46; Status DC Fentanyl Citrate (Fentanyl 2ml Vial) 100 mcg 1X ONCE IV Last administered on at 08:45; Start 10/06/18 at 08:45; Stop 10/06/18 at 08:46; Status DC Iodixanol (Visipaque 320) 100 ml 1X ONCE IART Last administered on 10/06/18at 08:45; Start 10/06/18 at 08:45; Stop 10/06/18 at 08:46; Status DC Lidocaine HCl (Lidocaine 1% 20ml Vial) 20 ml 1X ONCE INJ Last administered on 10/06/18at 08:45; Start 10/06/18 at 08:45; Stop 10/06/18 at 08:46; Status DC Info (CONTRAST GIVEN -- Rx MONITORING) 1 each PRN DAILY PRN MC SEE COMMENTS; Start 10/06/18 at 09:00; Stop 10/08/18 at 08:59; Status DC Iodixanol (Visipaque 320) 100 ml STK-MED ONCE .ROUTE ; Start 10/06/18 at 08:54; Stop 10/06/18 at 08:55; Status DC Heparin Sodium/ Sodium Chloride 500 ml @ As Directed STK-MED ONCE .ROUTE ; Start 10/06/18 at 08:54; Stop 10/06/18 at 08:55; Status DC Nitroglycerin (Nitrostat) 0.4 mg PRN Q5MIN PRN SL CHEST PAIN; Start 10/06/18 at 09:15 Morphine Sulfate (Morphine Sulfate) 2 mg PRN Q2HR PRN IV PAIN Last administered on 10/06/18at 19:58; Start 10/06/18 at 15:30 Acetaminophen (Tylenol) 650 mg PRN Q6HRS PRN PO MILD PAIN Last administered on 10/07/18at 16:23; Start 10/06/18 at 21:15 Metoprolol Succinate (Toprol Xl) 12.5 mg DAILY PO Last administered on at 08:58; Start 10/07/18 at 09:30 Furosemide (Lasix) 40 mg 1X ONCE IVP Last administered on 10/07/18at 09:31; Start 10/07/18 at 09:30; Stop 10/07/18 at 09:31; Status DC Lisinopril (Prinivil) 2.5 mg DAILY PO ; Start 10/08/18 at 09:00; Stop 10/08/18 at 09:00; Status DC Aspirin (Ecotrin) 81 mg DAILYWBKFT PO Last administered on 10/08/18at 08:57; Start 10/07/18 at 09:30 Hydralazine HCl (Apresoline) 10 mg TID PO Last administered on 10/08/18at 08:57 ; Start 10/07/18 at 09:30 Isosorbide Dinitrate (Isordil) 10 mg TID PO Last administered on 10/08/18at 08: 57; Start 10/07/18 at 09:30 Active Scripts Active Hydralazine Hcl 25 Mg Tablet 25 Mg PO TID 30 Days Isosorbide Dinitrate 10 Mg Tablet 10 Mg PO TID 30 Days Ventolin Hfa Inhaler (Albuterol Sulfate) 18 Gm Hfa.aer.ad 2 Puff INH Q4HRS Tessalon Perle (Benzonatate) 100 Mg Capsule 1 Cap PO TID Tablet (Pnv Cmb#95/Ferrous Fumarate/Fa) 1 Each Tablet 1 Tab PO DAILY Aspirin Ec (Aspirin) 81 Mg Tablet. 81 Mg PO DAILYWBKFT Reported Coreg (Carvedilol) 6.25 Mg Tablet 6.25 Mg PO BIDWMEALS Lasix (Furosemide) 40 Mg Tablet 1 Tab PO DAILY Potassium Chloride 20 Meq Tablet.er 20 Meq PO DAILY Vitals/I & O Vital Sign - Last 24 Hours 10/07/18 10/07/18 10/07/18 10/07/18 12:00 12:00 13:00 14:00 Temp 98.4 98.4 Pulse 88 84 84 Resp 16 20 20 B/P (MAP) 115/84 (94) 99/64 (76) 101/59 (73) Pulse Ox 98 99 99 O2 Delivery Room Air Room Air Room Air Room Air 10/07/18 10/07/18 10/07/18 10/07/18 15:00 15:04 15:04 16:00 Pulse 98 95 95 Resp 18 B/P (MAP) 101/63 (76) 101/63 101/63 Pulse Ox 98 O2 Delivery Room Air Room Air 10/07/18 10/07/18 10/07/18 10/07/18 16:00 17:00 18:00 19:00 Temp 98.8 98.8 Pulse 81 91 84 79 Resp 14 21 22 22 B/P (MAP) 116/72 (87) 109/75 (86) 104/63 (77) 108/74 (85) Pulse Ox 97 97 97 97 O2 Delivery Room Air Room Air Room Air Room Air 10/07/18 10/07/18 10/07/18 10/07/18 20:00 20:00 20:28 20:29 Temp 98.8 98.8 Pulse 88 88 88 Resp 11 B/P (MAP) 116/70 (85) 116/70 116/70 Pulse Ox 100 O2 Delivery Room Air Room Air 10/07/18 10/07/18 10/07/18 10/07/18 21:00 22:00 23:00 23:59 Pulse 89 88 94 Resp 11 15 14 B/P (MAP) 112/76 (88) 122/88 (99) 119/85 (96) Pulse Ox 100 100 100 O2 Delivery Room Air Room Air Room Air Room Air 10/07/18 10/08/18 10/08/18 10/08/18 23:59 01:00 02:00 03:00 Temp 97.8 97.8 Pulse 92 94 80 82 Resp 14 24 20 20 B/P (MAP) 124/81 (95) 110/71 (84) 103/67 (79) 108/65 (79) Pulse Ox 100 100 96 97 O2 Delivery Room Air Room Air Room Air Room Air 10/08/18 10/08/18 10/08/18 10/08/18 04:00 04:00 04:58 06:00 Temp 98.0 98.0 Pulse 78 81 85 Resp 20 20 20 B/P (MAP) 115/68 (84) 114/83 (93) 103/72 (82) Pulse Ox 97 97 97 O2 Delivery Room Air Room Air Room Air Room Air 10/08/18 10/08/18 10/08/18 10/08/18 07:00 07:55 08:00 08:57 Temp 98.1 98.1 Pulse 83 88 90 Resp 24 22 B/P (MAP) 122/84 (97) 109/82 (91) 109/82 Pulse Ox 99 97 O2 Delivery Room Air Room Air Room Air O2 Flow Rate 2.0 10/08/18 10/08/18 10/08/18 10/08/18 08:57 08:58 09:00 10:00 Pulse 90 90 92 81 Resp 20 19 B/P (MAP) 109/82 109/82 114/84 (94) 98/66 (77) Pulse Ox 98 100 O2 Delivery Room Air Room Air Intake and Output 10/07/18 10/07/18 10/08/18 14:59 22:59 06:59 Intake Total 480 ml 220 ml 120 ml Output Total 2200 ml 500 ml 0 ml Balance -1720 ml -280 ml 120 ml BOB FOSTER MD Oct 08, 2018 11:10
--- NOTE | 2018-10-08 14:54 | PDOC3 ---
Discharge Summary Date of Admission: Oct 06, 2018 Date of Discharge: Oct 08, 2018 Follow-Up: 3-5 days Admitting Diagnosis comment: discharge dx Assessment/Plan IMPRESSION CHF exacerbation cardiomyopathy, SEVERE Hypertension ELEVATED TROPONIN I There is a new 99% lesion noted in the very distal/apical segment secondary to either thrombus or spontaneous coronary artery dissection (SCAD). This is new compared to recent cardiac catheterization 1 month ago. NSTEMI , embolization likely PLAN: icu, bed cont EMERGENT CATH REVIEWED Cards FOLLOWING pt insisting on d/c today home meds potassium supplements Cardiac diet SHE PLANS FOR btl SOON , //NEEDS PCP ADIN!!, APPLYING FOR DISABILITY cannot afford life[facility] BTL soon URINE DRUG SCREEN NEG LONG DISCUSSION RE NEED FOR CLOSE WATCH OF CRITICAL ILLNESS 38 min cc time HIGH RISK PT FOR RE-ADMIT, Cardiac fx severely compromised, pt insists on going home today TROPONIN I TRENDING DOWN Vitals Vitals Vital Signs Date Time Temp Pulse Resp B/P (MAP) Pulse Ox O2 Delivery O2 Flow Rate FiO2 10/08/18 10:00 81 19 98/66 (77) 100 Room Air 10/08/18 08:00 98.1 98.1 10/08/18 07:55 2.0 Physical Exam General: Alert, Oriented X3, Cooperative, No acute distress Heart: Regular rate Lungs: Clear Abdomen: Normal bowel sounds, Soft Extremities: No cyanosis Skin: No rashes, No significant lesion Brief Hospital Course Ms. Street is a 38 old [sex] who presented with [ ] CONDITION AT DISCHARGE: Comment (guarded) Discharge Medications Current Medications Aspirin (Children'S Aspirin) 324 mg 1X ONCE PO Last administered on 10/05/18at 23:47; Start 10/05/18 at 23:30; Stop 10/05/18 at 23:31; Status DC Morphine Sulfate (Morphine Sulfate) 2 mg PRN Q15MIN PRN IV/SQ PAIN GREATER THAN 3/10 Last administered on 10/06/18at 07:47; Start 10/05/18 at 23:15; Stop at 15:26; Status DC Sodium Chloride 1,000 ml @ 100 mls/hr Q10H IV Last administered on 10/05/18at 23:47; Start 10/05/18 at 23:30; Stop 10/06/18 at 09:29; Status DC Heparin Sodium (Porcine) (Heparin Sodium) 4,000 unit 1X ONCE IV Last administered on 10/06/18at 02:08; Start 10/06/18 at 01:30; Stop 10/06/18 at 01:31 ; Status DC Heparin Sodium/ Dextrose 500 ml @ 0 mls/hr CONT PRN IV SEE I/O RECORD Last administered on 10/06/18at 23:47; Start 10/06/18 at 01:15; Stop 10/07/18 at 14:40 ; Status DC Heparin Sodium (Porcine) (Heparin Sodium) 1,700 unit PRN Q6HRS PRN IV FOR UFH LEVEL LESS THAN 0.2 Last administered on 10/06/18at 10:19; Start 10/06/18 at 01: 15; Stop 10/07/18 at 14:40; Status DC Ondansetron HCl (Zofran) 4 mg PRN Q8HRS PRN IV NAUSEA/VOMITING 1ST CHOICE; Start 10/06/18 at 01:15; Stop 10/07/18 at 01:14; Status DC Morphine Sulfate (Morphine Sulfate) 4 mg PRN Q2HR PRN IV SEVERE PAIN; Start at 01:15; Stop 10/06/18 at 15:26; Status DC Sodium Chloride 1,000 ml @ 100 mls/hr Q10H IV Last administered on 10/06/18at 21:36; Start 10/06/18 at 01:30; Stop 10/07/18 at 01:29; Status DC Nitroglycerin (Nitrostat) 0.4 mg PRN Q5MIN PRN SL CHEST PAIN Last administered on 10/06/18at 07:26; Start 10/06/18 at 01:15; Stop 10/07/18 at 01:14; Status DC Info (Anti-Coagulation Monitoring By Pharmacy) 1 each PRN DAILY PRN MC SEE COMMENTS Last administered on 10/07/18at 07:23; Start 10/06/18 at 01:30; Stop at 15:11; Status DC Fentanyl Citrate (Fentanyl 2ml Vial) 100 mcg STK-MED ONCE .ROUTE ; Start at 08:09; Stop 10/06/18 at 08:10; Status DC Midazolam HCl (Versed) 2 mg STK-MED ONCE .ROUTE ; Start 10/06/18 at 08:09; Stop 10/06/18 at 08:10; Status DC Lidocaine HCl (Lidocaine 1% 20ml Vial) 20 ml STK-MED ONCE .ROUTE ; Start at 08:11; Stop 10/06/18 at 08:13; Status DC Heparin Sodium/ Sodium Chloride (HEPARIN for ARTERIAL LINE FLUSH) 1,000 unit 1X ONCE IART Last administered on 10/06/18at 08:45; Start 10/06/18 at 08:45; Stop 10/06/18 at 08:46; Status DC Heparin Sodium/ Sodium Chloride (HEPARIN for ARTERIAL LINE FLUSH) 1,000 unit 1X ONCE IART Last administered on 10/06/18at 08:45; Start 10/06/18 at 08:45; Stop 10/06/18 at 08:46; Status DC Midazolam HCl (Versed) 2 mg 1X ONCE IV Last administered on 10/06/18at 08:45; Start 10/06/18 at 08:45; Stop 10/06/18 at 08:46; Status DC Fentanyl Citrate (Fentanyl 2ml Vial) 100 mcg 1X ONCE IV Last administered on at 08:45; Start 10/06/18 at 08:45; Stop 10/06/18 at 08:46; Status DC Iodixanol (Visipaque 320) 100 ml 1X ONCE IART Last administered on 10/06/18at 08:45; Start 10/06/18 at 08:45; Stop 10/06/18 at 08:46; Status DC Lidocaine HCl (Lidocaine 1% 20ml Vial) 20 ml 1X ONCE INJ Last administered on 10/06/18at 08:45; Start 10/06/18 at 08:45; Stop 10/06/18 at 08:46; Status DC Info (CONTRAST GIVEN -- Rx MONITORING) 1 each PRN DAILY PRN MC SEE COMMENTS; Start 10/06/18 at 09:00; Stop 10/08/18 at 08:59; Status DC Iodixanol (Visipaque 320) 100 ml STK-MED ONCE .ROUTE ; Start 10/06/18 at 08:54; Stop 10/06/18 at 08:55; Status DC Heparin Sodium/ Sodium Chloride 500 ml @ As Directed STK-MED ONCE .ROUTE ; Start 10/06/18 at 08:54; Stop 10/06/18 at 08:55; Status DC Nitroglycerin (Nitrostat) 0.4 mg PRN Q5MIN PRN SL CHEST PAIN; Start 10/06/18 at 09:15 Morphine Sulfate (Morphine Sulfate) 2 mg PRN Q2HR PRN IV PAIN Last administered on 10/06/18at 19:58; Start 10/06/18 at 15:30 Acetaminophen (Tylenol) 650 mg PRN Q6HRS PRN PO MILD PAIN Last administered on 10/07/18at 16:23; Start 10/06/18 at 21:15 Metoprolol Succinate (Toprol Xl) 12.5 mg DAILY PO Last administered on at 08:58; Start 10/07/18 at 09:30 Furosemide (Lasix) 40 mg 1X ONCE IVP Last administered on 10/07/18at 09:31; Start 10/07/18 at 09:30; Stop 10/07/18 at 09:31; Status DC Lisinopril (Prinivil) 2.5 mg DAILY PO ; Start 10/08/18 at 09:00; Stop 10/08/18 at 09:00; Status DC Aspirin (Ecotrin) 81 mg DAILYWBKFT PO Last administered on 10/08/18at 08:57; Start 10/07/18 at 09:30 Hydralazine HCl (Apresoline) 10 mg TID PO Last administered on 10/08/18at 14:32 ; Start 10/07/18 at 09:30 Isosorbide Dinitrate (Isordil) 10 mg TID PO Last administered on 10/08/18at 14: 32; Start 10/07/18 at 09:30 Active Scripts Active Hydralazine Hcl 25 Mg Tablet 25 Mg PO TID 30 Days Isosorbide Dinitrate 10 Mg Tablet 10 Mg PO TID 30 Days Ventolin Hfa Inhaler (Albuterol Sulfate) 18 Gm Hfa.aer.ad 2 Puff INH Q4HRS Tessalon Perle (Benzonatate) 100 Mg Capsule 1 Cap PO TID Tablet (Pnv Cmb#95/Ferrous Fumarate/Fa) 1 Each Tablet 1 Tab PO DAILY Aspirin Ec (Aspirin) 81 Mg Tablet.dr 81 Mg PO DAILYWBKFT Reported Coreg (Carvedilol) 6.25 Mg Tablet 6.25 Mg PO BIDWMEALS Lasix (Furosemide) 40 Mg Tablet 1 Tab PO DAILY Potassium Chloride 20 Meq Tablet.er 20 Meq PO DAILY Vital Signs Vital Signs Date Time Temp Pulse Resp B/P (MAP) Pulse Ox O2 Delivery O2 Flow Rate FiO2 10/08/18 14:32 92 117/78 10/08/18 12:00 Room Air 2.0 10/08/18 12:00 97.8 22 100 97.8 Labs Laboratory Tests Test 10/06/18 16:05 10/06/18 22:40 10/07/18 03:30 10/07/18 15:10 Heparin Anti-Xa Act, Unfractionated 0.40 IU/mL (0.30-0.70) 0.31 IU/mL (0.30-0.70) 0.24 IU/mL (0.30-0.70) White Blood Count 5.2 x10^3/uL (4.0-11.0) Red Blood Count 3.65 x10^6/uL (3.50-5.40) Hemoglobin 8.8 g/dL (12.0-15.5) Hematocrit 28.3 % (36.0-47.0) Mean Corpuscular Volume 77 fL (79-100) Mean Corpuscular Hemoglobin 24 pg (25-35) Mean Corpuscular Hemoglobin Concent 31 g/dL (31-37) Red Cell Distribution Width 17.7 % (11.5-14.5) Platelet Count 253 x10^3/uL (140-400) Neutrophils (%) (Auto) 43 % (31-73) Lymphocytes (%) (Auto) 43 % (24-48) Monocytes (%) (Auto) 9 % (0-9) Eosinophils (%) (Auto) 4 % (0-3) Basophils (%) (Auto) 1 % (0-3) Neutrophils # (Auto) 2.3 x10^3uL (1.8-7.7) Lymphocytes # (Auto) 2.2 x10^3/uL (1.0-4.8) Monocytes # (Auto) 0.5 x10^3/uL (0.0-1.1) Eosinophils # (Auto) 0.2 x10^3/uL (0.0-0.7) Basophils # (Auto) 0.1 x10^3/uL (0.0-0.2) Sodium Level 138 mmol/L (136-145) Potassium Level 3.8 mmol/L (3.5-5.1) Chloride Level 107 mmol/L (98-107) Carbon Dioxide Level 21 mmol/L (21-32) Anion Gap 10 (6-14) Blood Urea Nitrogen 12 mg/dL (7-20) Creatinine 0.8 mg/dL (0.6-1.0) Estimated GFR (Cockcroft-Gault) 97.7 Glucose Level 97 mg/dL (70-99) Calcium Level 8.1 mg/dL (8.5-10.1) Urine Opiates Screen Neg (NEG) Urine Methadone Screen Neg (NEG) Urine Barbiturates Neg (NEG) Urine Phencyclidine Screen Neg (NEG) Urine Amphetamine/Methamphetamine Neg (NEG) Urine Benzodiazepines Screen Neg (NEG) Urine Cocaine Screen Neg (NEG) Urine Cannabinoids Screen Neg (NEG) Urine Ethyl Alcohol Neg (NEG) Laboratory Tests Test 10/07/18 15:10 Urine Opiates Screen Neg (NEG) Urine Methadone Screen Neg (NEG) Urine Barbiturates Neg (NEG) Urine Phencyclidine Screen Neg (NEG) Urine Amphetamine/Methamphetamine Neg (NEG) Urine Benzodiazepines Screen Neg (NEG) Urine Cocaine Screen Neg (NEG) Urine Cannabinoids Screen Neg (NEG) Urine Ethyl Alcohol Neg (NEG) Allergies Allergies Coded Allergies Type Severity Reaction Last Updated Verified lisinopril Allergy Severe Anaphylaxis 03/22/18 Yes tramadol Allergy Severe Anaphylaxis 10/04/18 Yes Disposition/Orders: D/C to Home Patient Instructions d/c planning 32 min BOB FOSTER MD Oct 08, 2018 14:54
[2018-10-08] MEDS ORDERED: NITR0.4T SL (14:56)
[2018-10-08] MEDS ORDERED: METO-239 PO (14:56)
--- NOTE | 2018-10-08 14:57 | DISCH ---
DISCHARGE INSTRUCTIONS Condition on Discharge Condition on Discharge: Guarded Activity After Discharge Activity Instructions for Disc: Activity as tolerated Bathing Instructions: Shower-keep dressing dry Lifting Instructions after Dis: No heavy lifting Exercise Instruction after Dis: Progress as tolerated Driving Instructions after Dis: Do not drive Weight Bearing Status after Di: As tolerated Diet after Discharge Diet after Discharge: Cardiac, No Added Salt Diet Texture: Regular Liquid Texture: Thin Liquid Wound Incision Care Wound/Incision Care: Keep wound/cast CDI Wound Care Equipment: Dressings Checks after Discharge Checks after discharge: Check blood press - daily, Check your Temp as needed, Weigh Yourself Daily Contacting the DR. after DC Call your doctor for: Concerns you may have Treatment/Equipment after DC Adaptive Equipment Issued: None BOB FOSTER MD Oct 08, 2018 14:57
--- NOTE | 2018-10-08 16:35 | NUR ---
Pt discharged to home with all belongings. Pt verbalized understanding of discharge instructions and medications.
== END 2018-10-08 16:35 | disposition home or self-care (01) | DRG 280 ==
LOC: ER 22:33 → 1 WEST ICU 10-06 01:12
PROVIDERS: ADMIT Internal Medicine; ATTEND Internal Medicine
PROC: 4A023N7 Measurement of Cardiac Sampling and Pressure, Left Heart, Percutaneous Approach (ICD-10-PCS; principal; 2018-10-06)
PROC: B2111ZZ Fluoroscopy of Multiple Coronary Arteries using Low Osmolar Contrast (ICD-10-PCS; 2018-10-06)
DX: I21.4 Non-ST elevation (NSTEMI) myocardial infarction (principal); I25.42 Coronary artery dissection; I50.23 Acute on chronic systolic (congestive) heart failure; I42.9 Cardiomyopathy, unspecified; I11.0 Hypertensive heart disease with heart failure; Z88.6 Allergy status to analgesic agent; Z88.8 Allergy status to other drugs, medicaments and biological substances; Z82.49 Family history of ischemic heart disease and other diseases of the circulatory system; Z86.711 Personal history of pulmonary embolism
CPT/HCPCS: 36415; 71045; 80048; 80053; 80307; 83690; 83735; 83880; 84484; 85025; 85520; 87641; 93005; 93458; 96361; 96374; 99152; 99153; C1713; C1769; C1892; G0269; J1644; J1940; J2250; J2270; J3010; J7030; Q9967; 99285-25

== ENCOUNTER 2018-10-24 19:11 | Inpatient (IN) | payer OTHER ==
[~2018-10-24] VITALS: Ht 172.7 cm; Wt 79.0 kg
[~2018-10-24 19:11] MED LIST changes: +METO-239 PO; +NITR0.4T SL
[2018-10-24] MEDS ORDERED: NITROGLYCERIN OINT 1 GM PACKET. TP ONE (19:30)
[2018-10-24] MEDS ORDERED: ASPIRIN 325 MG TABLET PO ONE (19:30)
[2018-10-24 19:42] LABS: BASO # 0.1 x10^3/uL (0.0-0.2); BASO % 1 % (0-3); EOS # 0.1 x10^3/uL (0.0-0.7); EOS % 1 % (0-3); HEMATOCRIT 31.2 % (36.0-47.0); HEMOGLOBIN 9.9 g/dL (12.0-15.5); LYMPH # 1.9 x10^3/uL (1.0-4.8); LYMPH % 34 % (24-48); MEAN CORPUSCULAR HEMOGLOBIN 24 pg (25-35); MEAN CORPUSCULAR HGB CONC 32 g/dL (31-37); MEAN CORPUSCULAR VOLUME 75 fL (79-100); MONO # 0.3 x10^3/uL (0.0-1.1); MONO % 5 % (0-9); NEUT # 3.2 x10^3uL (1.8-7.7); NEUT % 58 % (31-73); PLATELET COUNT 414 x10^3/uL (140-400); RED BLOOD COUNT 4.16 x10^6/uL (3.50-5.40); WHITE BLOOD COUNT 5.5 x10^3/uL (4.0-11.0)
[2018-10-24 19:45] LABS: PROTHROMBIN TIME PATIENT 14.3 SEC (11.7-14.0)
[2018-10-24] MEDS ORDERED: ONDANSETRON PF 4 MG/2 ML VIAL. IV ONE (19:45)
[2018-10-24 19:47] LABS: CALCIUM 8.7 mg/dL (8.5-10.1); CREATININE 1.1 mg/dL (0.6-1.0); GFR 67.6; POTASSIUM 3.9 mmol/L (3.5-5.1)
[2018-10-24 19:54] LABS: ALBUMIN 3.6 g/dL (3.4-5.0); ALBUMIN/GLOBULIN RATIO 0.9 (1.0-1.7); MAGNESIUM 1.8 mg/dL (1.8-2.4); TOTAL BILIRUBIN 0.7 mg/dL (0.2-1.0); TOTAL PROTEIN 7.5 g/dL (6.4-8.2)
--- NOTE | 2018-10-24 19:54 | PHYS DOC ---
Past Medical History Past Medical History: CHF, Hypertension, Other Additional Past Medical Histor: cardiomyopathy Past Surgical History: Other Additional Past Surgical Histo: cardiac cath Smoking: Quit Less Than 1 Year Alcohol Use: None Drug Use: Marijuana Adult General Chief Complaint Chief Complaint: SHORTNESS OF BREATH HPI HPI Patient is a 38 year old female with history of CHF and pulmonary hypertension reports today due to shortness of breath. She states yesterday she was feeding her child when she started having sudden chest pain that led to some difficulty breathing. She describes chest pain as a tearing sensation located on the front part of the chest. Patient figured the pain resolved however when she woke up this morning it was still there and she started coughing up pink frothy sputum. Nothing improved her chest pain or shortness of breath however shortness of breath is worsened when lying down flat. Patient also reports nausea, vomiting, lightheadednes.[] Review of Systems Review of Systems Constitutional: Denies fever or chills [] Eyes: Denies redness, or eye pain [] HENT: Denies nasal congestion or sore throat [] Respiratory: Reports cough producing pink frothy sputum and shortness of breath [] Cardiovascular: Reports chest pain denies palpitations[] GI: Reports nausea, vomiting, denies abdominal pain [] : Denies dysuria or hematuria [] Musculoskeletal: Reports back pain, denies joint pain [] Integument: Denies rash or skin lesions [] Neurologic: Denies headache, focal weakness or sensory changes [] Complete systems were reviewed and found to be within normal limits, except as documented in this note. Current Medications Current Medications Current Medications Medications (Trade) Dose Ordered Sig/Yandy Start Time Stop Time Status Last Admin Dose Admin Acetaminophen (Tylenol) 650 mg PRN Q4HRS PRN 10/24/18 22:00 10/25/18 21:59 10/25/18 00:12 650 MG Aspirin (Katharine Aspirin) 325 mg 1X ONCE 10/24/18 19:30 10/24/18 19:31 DC 10/24/18 19:39 325 MG Bumetanide (Bumex) 0.5 mg 1X ONCE 10/24/18 22:00 10/24/18 22:01 DC 10/24/18 21:46 0.5 MG Fentanyl Citrate (Fentanyl 2ml Vial) 50 mcg PRN Q2HRS PRN 10/24/18 22:00 Iohexol (Omnipaque 350 Mg/ml) 90 ml 1X ONCE 10/24/18 20:00 10/24/18 20:01 DC 10/24/18 20:00 90 ML Nitroglycerin (Nitro-Bid Oint) 0.5 inch 1X ONCE 10/24/18 19:30 10/24/18 19:31 DC 10/24/18 19:38 0.5 INCH Nitroglycerin (Nitrostat) 0.4 mg PRN Q5MIN PRN 10/24/18 22:00 10/25/18 21:59 10/25/18 03:36 0.4 MG Ondansetron HCl (Zofran) 4 mg 1X ONCE 10/24/18 19:45 10/24/18 19:46 DC 10/24/18 19:56 4 MG Sodium Chloride 500 ml @ 500 mls/hr 1X ONCE 10/24/18 21:00 10/24/18 21:59 DC 10/24/18 21:00 500 MLS/HR Allergies Allergies Allergies Coded Allergies Type Severity Reaction Last Updated Verified lisinopril Allergy Severe Anaphylaxis 03/22/18 Yes tramadol Allergy Severe Anaphylaxis 10/04/18 Yes Physical Exam Physical Exam Constitutional: Well nourished, non-toxic appearance. [] HENT: Normocephalic, atraumatic. [] Eyes: EOMI, conjunctiva normal, no discharge. [] Neck: Normal range of motion,supple, no stridor. [] Cardiovascular: Tachycardic, no murmur [] Lungs & Thorax: Managed breath sounds throughout, crackles in lower lung bases right worse left[] Abdomen: Bowel sounds normal, soft, no tenderness. [] Skin: Warm, dry, no erythema, no rash. [] Back: No tenderness, no CVA tenderness. [] Extremities: No tenderness, no cyanosis, no clubbing, trace pretibial edema bilaterally. [] Neurologic: Alert and oriented X 3, no focal deficits noted. [] Psychologic: Affect normal, mood normal. [] Current Patient Data Vital Signs Vital Signs Date Time Temp Pulse Resp B/P (MAP) Pulse Ox O2 Delivery O2 Flow Rate FiO2 10/24/18 22:00 118 20 132/90 (104) 98 Nasal Cannula 2.0 4/2/19 19:14 98.4 98.4 Lab Values Laboratory Tests Test 10/24/18 19:26 10/24/18 19:49 10/24/18 20:07 10/24/18 20:28 White Blood Count 5.5 x10^3/uL (4.0-11.0) Red Blood Count 4.16 x10^6/uL (3.50-5.40) Hemoglobin 9.9 g/dL (12.0-15.5) L Hematocrit 31.2 % (36.0-47.0) L Mean Corpuscular Volume 75 fL (79-100) L Mean Corpuscular Hemoglobin 24 pg (25-35) L Mean Corpuscular Hemoglobin Concent 32 g/dL (31-37) Red Cell Distribution Width 18.0 % (11.5-14.5) H Platelet Count 414 x10^3/uL (140-400) H Neutrophils (%) (Auto) 58 % (31-73) Lymphocytes (%) (Auto) 34 % (24-48) Monocytes (%) (Auto) 5 % (0-9) Eosinophils (%) (Auto) 1 % (0-3) Basophils (%) (Auto) 1 % (0-3) Neutrophils # (Auto) 3.2 x10^3uL (1.8-7.7) Lymphocytes # (Auto) 1.9 x10^3/uL (1.0-4.8) Monocytes # (Auto) 0.3 x10^3/uL (0.0-1.1) Eosinophils # (Auto) 0.1 x10^3/uL (0.0-0.7) Basophils # (Auto) 0.1 x10^3/uL (0.0-0.2) Prothrombin Time 14.3 SEC (11.7-14.0) H Prothrombin Time INR 1.1 (0.8-1.1) Sodium Level 142 mmol/L (136-145) Potassium Level 3.9 mmol/L (3.5-5.1) Chloride Level 106 mmol/L (98-107) Carbon Dioxide Level 24 mmol/L (21-32) Anion Gap 12 (6-14) Blood Urea Nitrogen 14 mg/dL (7-20) Creatinine 1.1 mg/dL (0.6-1.0) H Estimated GFR (Cockcroft-Gault) 67.6 BUN/Creatinine Ratio 13 (6-20) Glucose Level 107 mg/dL (70-99) H Calcium Level 8.7 mg/dL (8.5-10.1) Magnesium Level 1.8 mg/dL (1.8-2.4) Total Bilirubin 0.7 mg/dL (0.2-1.0) Aspartate Amino Transferase (AST) 20 U/L (15-37) Alanine Aminotransferase (ALT) 27 U/L (14-59) Alkaline Phosphatase 72 U/L (46-116) Creatine Kinase 87 U/L (26-192) Creatine Kinase MB (Mass) 2.3 ng/mL (0.0-3.6) Creatine Kinase MB Relative Index 2.6 % (0-4) Troponin I Quantitative 0.466 ng/mL (0.000-0.055) PT-Hba-K-Type Natriuretic Peptide 5842 pg/mL (0-124) H Total Protein 7.5 g/dL (6.4-8.2) Albumin 3.6 g/dL (3.4-5.0) Albumin/Globulin Ratio 0.9 (1.0-1.7) L Lipase 60 U/L (73-393) L Lactic Acid Level 1.5 mmol/L (0.4-2.0) Urine Collection Type Unknown Urine Color Yellow Urine Clarity Clear Urine pH 7.0 Urine Specific [place] 1.020 Urine Protein 30 mg/dL (NEG-TRACE) Urine Glucose (UA) Negative mg/dL (NEG) Urine Ketones (Stick) Negative mg/dL (NEG) Urine Blood Negative (NEG) Urine Nitrite Negative (NEG) Urine Bilirubin Negative (NEG) Urine Urobilinogen Dipstick 1.0 mg/dL (0.2 mg/dL) Urine Leukocyte Esterase Moderate (NEG) Urine RBC 1-2 /HPF (0-2) Urine WBC 5-10 /HPF (0-4) Urine Squamous Epithelial Cells Mod /LPF Urine Bacteria Few /HPF (0-FEW) Urine Mucus Mod /LPF POC Urine HCG, Qualitative Hcg negative (Negative) Laboratory Tests 10/24/18 19:26 Laboratory Tests 10/24/18 19:26 EKG EKG @1916 Sinus tachycardia at 134bpm, V5-V6 t wave inversion Radiology/Procedures Radiology/Procedures PROCEDURE: CT ANGIOGRAPHY CHEST PQRS Compliance statement: One or more of the following individualized dose reduction techniques were utilized for this examination: 1. Automated exposure control. 2. Adjustment of the mA and/or kV according to patient size. 3. Use of iterative reconstruction technique. Indication:CP, SOA, cough, [id number] 90ml, prior sent TECHNIQUE: CT angiogram of the chest with IV contrast with multiplanar MIP reformats. COMPARISON:11/17/2015 FINDINGS: Diagnostic quality PE study. There are no central, segmental or subsegmental filling defects in the pulmonary arteries. Heart is moderately enlarged in size. No pericardial or pleural effusion. Clear neck base. Shotty bilateral axillary lymph nodes are seen, nonspecific. No enlarged mediastinal or hilar adenopathy. Amorphous soft tissue seen in the superior mediastinum likely residual thymus or splenic hyperplasia. Multifocal patchy groundglass opacities are seen in the bilateral lungs, right more than left. Visualized sections through the liver, spleen, adrenals, pancreas within normal limits. Nonobstructing 3 mm left renal stone is visualized. No suspicious bony lesion. IMPRESSION: 1. No PE. 2. Mild cardiomegaly. 3. Bilateral lung abnormality as described above. Differential diagnoses includes pulmonary edema or multifocal infection. Electronically signed by: Mauri Armenta DO (10/24/2018 9:11 PM) [facility] DICTATED and SIGNED BY: MAURI ARMENTA DO[] Course & Med Decision Making Course & Med Decision Making 38-year-old female presents to the emergency Department due to shortness of breath. Patient states that she is chest pain and shortness of breath yesterday however developed a cough which is productive of pink frothy sputum today. EKG performed. Pertinent Labs and Imaging studies reviewed. CT angiogram showed no PE, did demonstrate signs of fluid on her lungs. Troponin was elevated. Patient requiring admission for further evaluation and treatment. Discussed with ( hospitalist) who is in agreement with admission. Discussed findings and plan with patient and family, who acknowledge understanding and agreement.(See chart for details) [] Dragon Disclaimer Dragon Disclaimer This electronic medical record was generated, in whole or in part, using a voice recognition dictation system. Departure Departure Impression: Primary Impression: CHF (congestive heart failure) Additional Impression: Elevated troponin Disposition: ADMITTED INPATIENT Admitting Physician: Other (Farela) Condition: GUARDED Referrals: NO PCP (PCP) Critical Care Time Critical care time was 30 minutes which includes time at bedside, spent in discussion of patient's care with specialists and/or family members, with interpretation of laboratory and/or radiological studies and is exclusive of procedures. Problem Qualifiers Primary Impression: CHF (congestive heart failure) Heart failure type: unspecified Heart failure chronicity: unspecified Qualified Codes: I50.9 - Heart failure, unspecified ADELAIDA MAN DO Oct 24, 2018 19:53
[2018-10-24] MEDS ORDERED: IOHEXOL 350 MG/ML 100 ML VIAL. IV ONE (20:00)
[2018-10-24 20:16] LABS: BILIRUBIN,URINE NEGATIVE (NEG); CLARITY,URINE CLEAR; COLOR,URINE YELLOW; NITRITE,URINE NEGATIVE (NEG); PROTEIN,URINE 30 mg/dL (NEG-TRACE)
[2018-10-24 20:23] LABS: BACTERIA,URINE FEW /HPF (0-FEW); SQUAMOUS EPITHELIAL CELL,UR MOD /LPF
[2018-10-24] MEDS ORDERED: fentaNYL PF VIAL 100 MCG/2 ML VIAL IV ONE (21:00)
[2018-10-24] MEDS ORDERED: IV NORMAL SALINE 500ML BAG 500 ML IV ONE (21:00)
--- NOTE | 2018-10-24 21:14 | RAD ---
PQRS Compliance statement: One or more of the following individualized dose reduction techniques were utilized for this examination: 1. Automated exposure control. 2. Adjustment of the mA and/or kV according to patient size. 3. Use of iterative reconstruction technique. Indication:CP, SOA, cough, [id number] 90ml, prior sent TECHNIQUE: CT angiogram of the chest with IV contrast with multiplanar MIP reformats. COMPARISON:11/17/2015 FINDINGS: Diagnostic quality PE study. There are no central, segmental or subsegmental filling defects in the pulmonary arteries. Heart is moderately enlarged in size. No pericardial or pleural effusion. Clear neck base. Shotty bilateral axillary lymph nodes are seen, nonspecific. No enlarged mediastinal or hilar adenopathy. Amorphous soft tissue seen in the superior mediastinum likely residual thymus or splenic hyperplasia. Multifocal patchy groundglass opacities are seen in the bilateral lungs, right more than left. Visualized sections through the liver, spleen, adrenals, pancreas within normal limits. Nonobstructing 3 mm left renal stone is visualized. No suspicious bony lesion. IMPRESSION: 1. No PE. 2. Mild cardiomegaly. 3. Bilateral lung abnormality as described above. Differential diagnoses includes pulmonary edema or multifocal infection. Electronically signed by: Mauri Mendez DO (10/24/2018 9:11 PM) [facility]
[2018-10-24] MEDS ORDERED: NITROGLYCERIN SUBLINGUAL 0.4 MG BOTTLE OF 25. SL PRN (22:00)
[2018-10-24] MEDS ORDERED: BUMETANIDE 1 MG/4 ML VIAL. IV ONE (22:00)
[2018-10-24] MEDS ORDERED: fentaNYL PF VIAL 100 MCG/2 ML VIAL IV PRN (22:00)
[2018-10-24 23:50] VITALS: BP 117/86
[2018-10-25] VITALS (7 sets, daily range): BP systolic 90–105; BP diastolic 54–68
[2018-10-25] MEDS: ACETAMINOPHEN 325 MG TABLET. PO PRN ×2 (00:12→19:54)
[2018-10-25] MEDS ORDERED: C.DIFF MED SCREEN BY RX. MC ONE (02:15)
--- NOTE | 2018-10-25 07:57 | EKG ---
[facility] [address] [place] [address] Test Date: 2018-10-24 Test Time: 19:16:32 Pat Name: JAUN NELSON Department: Room: 210 1 Gender: F [employer]: : 1980 Requested By: ADELAIDA MAN Order Number: [id number] Reading MD: Deangelo Banerjee MD Measurements Intervals [place] Rate: 133 P: [place]: QRS: 41 QRSD: 82 T: 90 QT: 328 QTc: 496 Interpretive Statements PROBABLE SINUS TACHYCARDIA LVH CONSIDER LATERAL ISCHEMIA Electronically Signed On 10-26-2018 9:13:30 CDT by Deangelo Banerjee MD
[2018-10-25] MEDS ORDERED: NITROGLYCERIN SUBLINGUAL 0.4 MG BOTTLE OF 25. SL PRN (10:15)
[2018-10-25] MEDS: ISOSORBIDE DINITRATE 10 MG TABLET. PO SCH ×3 (10:48→20:47)
[2018-10-25] MEDS: POTASSIUM CHLORIDE 20 MEQ TABLET.ER. PO SCH (10:48)
[2018-10-25] MEDS: ASPIRIN ENTERIC COATED 81 MG TABLET.DR. PO SCH (10:49)
[2018-10-25] MEDS: CARVEDILOL 6.25 MG TABLET. PO SCH ×2 (10:49→16:56)
[2018-10-25] MEDS ORDERED: FUROSEMIDE 40 MG TABLET. PO SCH (11:00)
[2018-10-25] MEDS ORDERED: METOPROLOL SUCC 24HR ER 25 MG TAB.ER.24H. PO SCH (11:00)
--- NOTE | 2018-10-25 11:34 | PDOC2 ---
SAMANTHA DURBIN [employer]LECT[employer]ENDER 10/25/18 1133: CARDIAC CONSULT DATE OF CONSULT Date of Consult DATE: 10/25/18 TIME: 10:57 REASON FOR CONSULT Reason for Consult: Elevated trop, CHF SOURCE Source: Chart review, Patient HISTORY OF PRESENT ILLNESS HISTORY OF PRESENT ILLNESS This is a pleasant 38 yo female admitted for complains of SOA in the last 2 days and leg swelling. Positive for orthopnea. she also has been coughing and sometimes vomiting with tained streaks of blood. No dizziness, passing out or palpitations. No chest pain. Reports that she has not been checking her BP and noted that she had 4 pound wt gain but failed to heed instruction in regards to calling for any CHF symptoms or any signs of overload for med adjustment. She finally got to ED and received diuretic IV and currently better. Denies any further smoking and verbalized that she is on her monthly period prompting her to think that this may have contributed to her wt gain and not her CHF. PAST MEDICAL HISTORY Past Medical History Cardiovascular: CHF, HTN (gestational), NICM, CAD Pulmonary: No pertinent hx, Pulmonary embolus (?) CENTRAL NERVOUS SYSTEM: Other (No pertinent history) GI: Constipation Heme/Onc: anemia Hepatobiliary: No pertinent hx Psych: No pertinent hx Musculoskeletal: Other (denies) Rheumatologic: No pertinent hx Infectious disease: No pertinent hx ENT: No pertinent hx Renal/: Other (nephrolithiasis) Endocrine: Other (?possible thyroid disease) Dermatology: No pertinent hx PAST SURGICAL HISTORY Past Surgical History [facility] 06/2016, cervical biopsy FAMILY HISTORY Family History Coronary Artery Disease (father) SOCIAL HISTORY Social History Smoke: 1 pack per day (>10 yrs) ALCOHOL: none Drugs: no further use of Marijuana Lives: with Family CURRENT MEDICATIONS CURRENT MEDICATIONS Current Medications Medications (Trade) Dose Ordered Sig/Yandy Route PRN Reason Start Time Stop Time Status Last Admin Dose Admin Aspirin (Katharine Aspirin) 325 mg 1X ONCE PO 10/24/18 19:30 10/24/18 19:31 DC 10/24/18 19:39 Nitroglycerin (Nitro-Bid Oint) 0.5 inch 1X ONCE TP 10/24/18 19:30 10/24/18 19:31 DC 10/24/18 19:38 Ondansetron HCl (Zofran) 4 mg 1X ONCE IV 10/24/18 19:45 10/24/18 19:46 DC 10/24/18 19:56 Iohexol (Omnipaque 350 Mg/ml) 90 ml 1X ONCE IV 10/24/18 20:00 10/24/18 20:01 DC 10/24/18 20:00 Sodium Chloride 500 ml @ 500 mls/hr 1X ONCE IV 10/24/18 21:00 10/24/18 21:59 DC 10/24/18 21:00 Fentanyl Citrate (Fentanyl 2ml Vial) 50 mcg 1X ONCE IV 10/24/18 21:00 10/24/18 21:01 DC 10/24/18 21:41 Bumetanide (Bumex) 0.5 mg 1X ONCE IV 10/24/18 22:00 10/24/18 22:01 DC 10/24/18 21:46 Acetaminophen (Tylenol) 650 mg PRN Q4HRS PRN PO FEVER 10/24/18 22:00 10/25/18 21:59 10/25/18 00:12 Nitroglycerin (Nitrostat) 0.4 mg PRN Q5MIN PRN SL CHEST PAIN 10/24/18 22:00 10/25/18 21:59 10/25/18 03:36 Aspirin (Ecotrin) 81 mg DAILYWBKFT PO 10/25/18 11:00 10/25/18 10:49 Carvedilol (Coreg) 6.25 mg BIDWMEALS PO 10/25/18 11:00 10/25/18 10:49 Furosemide (Lasix) 40 mg DAILY PO 10/25/18 11:00 10/25/18 10:49 Isosorbide Dinitrate (Isordil) 10 mg TID PO 10/25/18 11:00 10/25/18 10:48 Potassium Chloride (Klor-Con) 20 meq DAILYWBKFT PO 10/25/18 11:00 10/25/18 10:48 ALLERGIES ALLERGIES: Coded Allergies: lisinopril (Verified Allergy, Severe, Anaphylaxis, 03/22/18) tramadol (Verified Allergy, Severe, Anaphylaxis, 10/04/18) Tolerates morphine ROS Review of System 14 point ROS evaluated with pertinent positives noted per HPI PHYSICAL EXAM General: Alert, Oriented X3, Cooperative, No acute distress HEENT: Mucous membr. moist/pink Lungs: Other (basilar crackles) Heart: Regular rate (SR), Normal S1, Normal S2, Other (3/6 apical murmur) Abdomen: Soft, No tenderness Extremities: No cyanosis, Other (trace LE edema) Neuro: Normal speech, Sensation intact Psych/Mental Status: Mental status NL, Mood NL MUSCULOSKELETAL: Osteoarthritic changes both hands VITALS VITALS Vital Signs Date Time Temp Pulse Resp B/P (MAP) Pulse Ox O2 Delivery O2 Flow Rate FiO2 10/25/18 10:49 75 10/25/18 08:10 Nasal Cannula 10/25/18 07:00 98.5 16 100/67 (78) 97 2.0 98.5 LABS Lab: Laboratory Tests Test 10/24/18 19:26 10/24/18 19:49 10/24/18 20:07 10/24/18 20:28 White Blood Count 5.5 x10^3/uL (4.0-11.0) Red Blood Count 4.16 x10^6/uL (3.50-5.40) Hemoglobin 9.9 g/dL (12.0-15.5) Hematocrit 31.2 % (36.0-47.0) Mean Corpuscular Volume 75 fL (79-100) Mean Corpuscular Hemoglobin 24 pg (25-35) Mean Corpuscular Hemoglobin Concent 32 g/dL (31-37) Red Cell Distribution Width 18.0 % (11.5-14.5) Platelet Count 414 x10^3/uL (140-400) Neutrophils (%) (Auto) 58 % (31-73) Lymphocytes (%) (Auto) 34 % (24-48) Monocytes (%) (Auto) 5 % (0-9) Eosinophils (%) (Auto) 1 % (0-3) Basophils (%) (Auto) 1 % (0-3) Neutrophils # (Auto) 3.2 x10^3uL (1.8-7.7) Lymphocytes # (Auto) 1.9 x10^3/uL (1.0-4.8) Monocytes # (Auto) 0.3 x10^3/uL (0.0-1.1) Eosinophils # (Auto) 0.1 x10^3/uL (0.0-0.7) Basophils # (Auto) 0.1 x10^3/uL (0.0-0.2) Prothrombin Time 14.3 SEC (11.7-14.0) Prothromb Time International Ratio 1.1 (0.8-1.1) Sodium Level 142 mmol/L (136-145) Potassium Level 3.9 mmol/L (3.5-5.1) Chloride Level 106 mmol/L (98-107) Carbon Dioxide Level 24 mmol/L (21-32) Anion Gap 12 (6-14) Blood Urea Nitrogen 14 mg/dL (7-20) Creatinine 1.1 mg/dL (0.6-1.0) Estimated GFR (Cockcroft-Gault) 67.6 BUN/Creatinine Ratio 13 (6-20) Glucose Level 107 mg/dL (70-99) Calcium Level 8.7 mg/dL (8.5-10.1) Magnesium Level 1.8 mg/dL (1.8-2.4) Total Bilirubin 0.7 mg/dL (0.2-1.0) Aspartate Amino Transf (AST/SGOT) 20 U/L (15-37) Alanine Aminotransferase (ALT/SGPT) 27 U/L (14-59) Alkaline Phosphatase 72 U/L (46-116) Creatine Kinase 87 U/L (26-192) Creatine Kinase MB (Mass) 2.3 ng/mL (0.0-3.6) Creatine Kinase MB Relative Index 2.6 % (0-4) Troponin I Quantitative 0.466 ng/mL (0.000-0.055) TI-Xgf-P-Type Natriuretic Peptide 5842 pg/mL (0-124) Total Protein 7.5 g/dL (6.4-8.2) Albumin 3.6 g/dL (3.4-5.0) Albumin/Globulin Ratio 0.9 (1.0-1.7) Lipase 60 U/L (73-393) Lactic Acid Level 1.5 mmol/L (0.4-2.0) Urine Collection Type Unknown Urine Color Yellow Urine Clarity Clear Urine pH 7.0 Urine Specific [place] 1.020 Urine Protein 30 mg/dL (NEG-TRACE) Urine Glucose (UA) Negative mg/dL (NEG) Urine Ketones (Stick) Negative mg/dL (NEG) Urine Blood Negative (NEG) Urine Nitrite Negative (NEG) Urine Bilirubin Negative (NEG) Urine Urobilinogen Dipstick 1.0 mg/dL (0.2 mg/dL) Urine Leukocyte Esterase Moderate (NEG) Urine RBC 1-2 /HPF (0-2) Urine WBC 5-10 /HPF (0-4) Urine Squamous Epithelial Cells Mod /LPF Urine Bacteria Few /HPF (0-FEW) Urine Mucus Mod /LPF Bedside Urine HCG, Qualitative Hcg negative (Negative) Test 10/25/18 01:00 10/25/18 03:55 Troponin I Quantitative 0.295 ng/mL (0.000-0.055) 0.253 ng/mL (0.000-0.055) ECHOCARDIOGRAM ECHOCARDIOGRAM <Conclusion> The Left Ventricle is moderately dilated. The systolic function is severely impaired. The Ejection Fraction is 20-25%. There is global hypokinesis of the left ventricle. There is mild concentric left ventricular hypertrophy. There is no significant aortic valvular stenosis. Doppler and Color Flow revealed trace to mild aortic regurgitation. Doppler and Color-flow revealed moderate eccentric mitral regurgitation. Doppler and Color Flow revealed trace to mild tricuspid regurgitation. DATE: 09/08/18 1428 HEART CATH HEART CATH FINDINGS 1. The left main coronary artery arose from the left sinus of Valsalva, gave rise to the left anterior descending and left circumflex arteries and did not show any significant stenosis. 2. 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 There was 99% lesion noted in the very distal/apical segment secondary to either thrombus or spontaneous coronary artery dissection (SCAD). This is new compared to recent cardiac catheterization 1 month ago. 3. The left circumflex artery did not show any significant stenosis. 4. The right coronary artery was a large and dominant vessel arising from the right sinus of Valsalva that did not show any significant stenosis. 5. Left ventricle end-diastolic pressure 24 mmHg. No pullback gradient across the aortic valve. Conclusion No critical lesions needing intervention noted. Patient was found to have myocardial bridging in the distal segment of the left anterior descending artery , described in prior cardiac catheterization. Also seen was 99% lesion in the very distal/apical segment secondary to either thrombus or spontaneous coronary artery dissection (SCAD). This is most probably the culprit lesion for patient' s non-STEMI but is not amenable for percutaneous intervention due to the very distal location of the lesion. Recommendations Optimization of medical therapy for patient's non-STEMI and non-ischemic cardiomyopathy and repeat 2-D echo in 2-3 months to evaluate the need for AICD implantation. DATE: 10/06/18 1128 ASSESSMENT/PLAN ASSESSMENT/PLAN 1. Acute on chronic systolic CHF. NYHA1-2, improving 2. NICM: EF 20-25% 3. NSTEMI, peaked trop 0.4 demand mediated. Notable for myocardial bridging to distal LAD region 4. Anemia, microcytic 5. CAD; recent LHC noted above with distal apical lesion possibly from thrombus vs SCAD. CP free 6. NSVT x1: expected with her CM, no symptoms. 7. On Mirena IUD and on her menstruation Recommendations 1. CM for disability application follow up 2. Discussed CHF symptoms, daily wt, Na control and FR 2L and meds. BMP and Mg today. 3. Lifevest is ideal but would not be able to afford at this time. Will need further outpt optimization as an outpt, entresto candidate 4. Continue lasix, IV today. Would not be able to afford toprol and will continue coreg and current nitrates and hydralazine. ASA. 5. Encouraged to follow up in office. 6. Further CHF education per staff JAIDA JUNE MD 10/25/18 1655: CARDIAC CONSULT ASSESSMENT/PLAN ASSESSMENT/PLAN Patient seen and examined. Agree with [facility] [facility]ATE's assessment and plan. Continue diuresis for acute on chronic systolic heart failure Slight troponin elevation probably demand ischemia Recent cardiac catheterization results noted above Continue current medical regimen Thank you for your consultation SAMANTHA DURBIN APRN Oct 25, 2018 11:33 JAIDA JUNE MD Oct 25, 2018 16:55
[2018-10-25 11:43] LABS: CALCIUM 8.1 mg/dL (8.5-10.1); GFR 75.5; MAGNESIUM 1.8 mg/dL (1.8-2.4); POTASSIUM 3.7 mmol/L (3.5-5.1)
[2018-10-25] MEDS ORDERED: NON FORMULARY ITEM (Albuterol Sulfate (Ventolin Hfa Inhaler) 2 PUFF) INH SCH (12:00)
[2018-10-25] MEDS ORDERED: FUROSEMIDE 40 MG/4 ML VIAL. IVP ONE (12:00)
--- NOTE | 2018-10-25 13:05 | NUR ---
SS following for discharge planning. SS reviewed pt chart. Pt is self pay. Pt is from home and is currently requiring oxygen. No discharge needs noted at this time. SS will continue to follow for pending discharge needs. HCFS to follow for self pay status.
[2018-10-25] MEDS: ALBUTEROL SULFATE 2.5 MG/3 ML NEBU. NEB SCH ×4 (13:47→23:53)
[2018-10-25] MEDS ORDERED: hydrALAZINE 25 MG TABLET PO SCH (14:00)
[2018-10-25] MEDS: BENZONATATE 100 MG CAPSULE. PO SCH ×2 (14:00→20:47)
--- NOTE | 2018-10-25 18:59 | PDOC1 ---
History and Physical Date of Admission Date of Admission 10/25/2018 Identification/Chief Complaint Chief Complaint I couldnt breath Source Source: Chart review, Patient History of Present Illness History of Present Illness Patient is a 38 year old female with past medical history of post cardiomyopathy who wa in her usual state of health until more or less 5 days prior to her admission She refers dyspnea initially to exertion which has progressively gotten worse to the pooint that she is reporting PND and orthopnea the day prior to her admission. She denies dietary transgression, she has been adherent to her medications. Patient denies recent infections no cough or sputum production prior to her acute presentation on the day of admission. She was found to be in pulmonary edema as per report from ED physician, she compalined of pain precordial with no radiation she had sensation of impending doom reasaon why seh came to the er for evlauation. Patient had an elevated troponin level and pulmonary edema on imagin studies. She is being admitted for further treatment. Past Medical History Cardiovascular: CHF, HTN Pulmonary: No pertinent hx, Pulmonary embolus CENTRAL NERVOUS SYSTEM: Other GI: Constipation Heme/Onc: No pertinent hx Hepatobiliary: No pertinent hx Psych: No pertinent hx Rheumatologic: No pertinent hx Infectious disease: No pertinent hx Renal/: Other Endocrine: Other Past Surgical History Past Surgical History: Other Family History Family History: Coronary Artery Disease, Hypertension Social History ALCOHOL: none Drugs: Marijuana Current Problem List Problem List Problems Medical Problems: (1) Elevated troponin Status: Acute Current Medications Current Medications Current Medications Medications (Trade) Dose Ordered Sig/Yandy Start Time Stop Time Status Last Admin Dose Admin Acetaminophen (Tylenol) 650 mg PRN Q4HRS PRN 10/24/18 22:00 10/25/18 21:59 10/25/18 00:12 650 MG Albuterol Sulfate (Ventolin Neb Soln) 2.5 mg Q4HRS 10/25/18 12:00 10/25/18 16:21 2.5 MG Aspirin (Katharine Aspirin) 325 mg 1X ONCE 10/24/18 19:30 10/24/18 19:31 DC 10/24/18 19:39 325 MG Aspirin (Ecotrin) 81 mg [id number] 10/25/18 11:00 10/25/18 10:49 81 MG Benzonatate (Tessalon Perle) 100 mg [id number] 10/25/18 14:00 Bumetanide (Bumex) 0.5 mg 1X ONCE 10/24/18 22:00 10/24/18 22:01 DC 10/24/18 21:46 0.5 MG Carvedilol (Coreg) 6.25 mg BIDWMEALS 10/25/18 11:00 10/25/18 16:56 6.25 MG Fentanyl Citrate (Fentanyl 2ml Vial) 50 mcg PRN Q2HRS PRN 10/24/18 22:00 Furosemide (Lasix) 40 mg 1X ONCE 10/25/18 12:00 10/25/18 12:01 DC 10/25/18 14:11 40 MG Hydralazine HCl (Apresoline) 25 mg BID 10/25/18 21:00 Iohexol (Omnipaque 350 Mg/ml) 90 ml 1X ONCE 10/24/18 20:00 10/24/18 20:01 DC 10/24/18 20:00 90 ML Isosorbide Dinitrate (Isordil) 10 mg TID 10/25/18 11:00 10/25/18 16:57 10 MG Metoprolol Succinate (Toprol Xl) 12.5 mg DAILY 10/25/18 11:00 10/25/18 11:19 DC Nitroglycerin (Nitro-Bid Oint) 0.5 inch 1X ONCE 10/24/18 19:30 10/24/18 19:31 DC 10/24/18 19:38 0.5 INCH Nitroglycerin (Nitrostat) 0.4 mg PRN Q5MIN PRN 10/25/18 10:15 Non-Formulary Medication (Albuterol Sulfate (Ventolin Hfa Inhaler)) 2 puff Q4HRS 10/25/18 12:00 UNV Ondansetron HCl (Zofran) 4 mg 1X ONCE 10/24/18 19:45 10/24/18 19:46 DC 10/24/18 19:56 4 MG Pharmacy Consult (C.diff Med Screen By Rx) 1 each 1X ONCE 10/25/18 02:15 10/25/18 02:24 DC Potassium Chloride (Klor-Con) 20 meq DAILYWBKFT 10/25/18 11:00 10/25/18 10:48 20 MEQ Sodium Chloride 500 ml @ 500 mls/hr 1X ONCE 10/24/18 21:00 10/24/18 21:59 DC 10/24/18 21:00 500 MLS/HR Allergies Allergies Allergies Coded Allergies Type Severity Reaction Last Updated Verified lisinopril Allergy Severe Anaphylaxis 03/22/18 Yes tramadol Allergy Severe Anaphylaxis 10/04/18 Yes ROS Review of System CONSTITUTIONAL: No fever or chills EYES: No recent changes SKIN: No rash or itching CARDIOVASCULAR: + chest pain,no syncope, palpitations, + edema RESPIRATORY: + SOB + cough GASTROINTESTINAL: No nausea, vomiting or abdominal pain NEUROLOGICAL: No headaches or weakness ENDOCRINE: No cold or heat intolerance GENITOURINARY: No urgency or frequency of urination MUSCULOSKELETAL: No back pain or joint pain LYMPHATICS: No enlarged lymph nodes PSYCHIATRIC: No anxiety or depression Physical Exam Physical Exam GEN.: No apparent distress. Alert and oriented. HEENT: Head is normocephalic, atraumatic NECK: Supple. LUNGS: Clear to auscultation. HEART: RRR, S1, S2 present. Peripheral pulses intact ABDOMEN: Soft, nontender. Positive bowel sounds. EXTREMITIES: Without any cyanosis. NEUROLOGIC: Normal speech, normal tone PSYCHIATRIC: Normal affect, normal mood. SKIN: No ulcerations Vitals Vitals Vital Signs Date Time Temp Pulse Resp B/P (MAP) Pulse Ox O2 Delivery O2 Flow Rate FiO2 10/25/18 16:57 75 10/25/18 16:21 96 Nasal Cannula 2.0 10/25/18 15:00 98.8 16 103/64 (77) 98.8 Labs Labs Laboratory Tests Test 10/24/18 19:26 10/24/18 19:49 10/24/18 20:07 10/24/18 20:28 White Blood Count 5.5 x10^3/uL (4.0-11.0) Red Blood Count 4.16 x10^6/uL (3.50-5.40) Hemoglobin 9.9 g/dL (12.0-15.5) Hematocrit 31.2 % (36.0-47.0) Mean Corpuscular Volume 75 fL (79-100) Mean Corpuscular Hemoglobin 24 pg (25-35) Mean Corpuscular Hemoglobin Concent 32 g/dL (31-37) Red Cell Distribution Width 18.0 % (11.5-14.5) Platelet Count 414 x10^3/uL (140-400) Neutrophils (%) (Auto) 58 % (31-73) Lymphocytes (%) (Auto) 34 % (24-48) Monocytes (%) (Auto) 5 % (0-9) Eosinophils (%) (Auto) 1 % (0-3) Basophils (%) (Auto) 1 % (0-3) Neutrophils # (Auto) 3.2 x10^3uL (1.8-7.7) Lymphocytes # (Auto) 1.9 x10^3/uL (1.0-4.8) Monocytes # (Auto) 0.3 x10^3/uL (0.0-1.1) Eosinophils # (Auto) 0.1 x10^3/uL (0.0-0.7) Basophils # (Auto) 0.1 x10^3/uL (0.0-0.2) Prothrombin Time 14.3 SEC (11.7-14.0) Prothromb Time International Ratio 1.1 (0.8-1.1) Sodium Level 142 mmol/L (136-145) Potassium Level 3.9 mmol/L (3.5-5.1) Chloride Level 106 mmol/L (98-107) Carbon Dioxide Level 24 mmol/L (21-32) Anion Gap 12 (6-14) Blood Urea Nitrogen 14 mg/dL (7-20) Creatinine 1.1 mg/dL (0.6-1.0) Estimated GFR (Cockcroft-Gault) 67.6 BUN/Creatinine Ratio 13 (6-20) Glucose Level 107 mg/dL (70-99) Calcium Level 8.7 mg/dL (8.5-10.1) Magnesium Level 1.8 mg/dL (1.8-2.4) Total Bilirubin 0.7 mg/dL (0.2-1.0) Aspartate Amino Transf (AST/SGOT) 20 U/L (15-37) Alanine Aminotransferase (ALT/SGPT) 27 U/L (14-59) Alkaline Phosphatase 72 U/L (46-116) Creatine Kinase 87 U/L (26-192) Creatine Kinase MB (Mass) 2.3 ng/mL (0.0-3.6) Creatine Kinase MB Relative Index 2.6 % (0-4) Troponin I Quantitative 0.466 ng/mL (0.000-0.055) XZ-Wbh-O-Type Natriuretic Peptide 5842 pg/mL (0-124) Total Protein 7.5 g/dL (6.4-8.2) Albumin 3.6 g/dL (3.4-5.0) Albumin/Globulin Ratio 0.9 (1.0-1.7) Lipase 60 U/L (73-393) Lactic Acid Level 1.5 mmol/L (0.4-2.0) Urine Collection Type Unknown Urine Color Yellow Urine Clarity Clear Urine pH 7.0 Urine Specific [place] 1.020 Urine Protein 30 mg/dL (NEG-TRACE) Urine Glucose (UA) Negative mg/dL (NEG) Urine Ketones (Stick) Negative mg/dL (NEG) Urine Blood Negative (NEG) Urine Nitrite Negative (NEG) Urine Bilirubin Negative (NEG) Urine Urobilinogen Dipstick 1.0 mg/dL (0.2 mg/dL) Urine Leukocyte Esterase Moderate (NEG) Urine RBC 1-2 /HPF (0-2) Urine WBC 5-10 /HPF (0-4) Urine Squamous Epithelial Cells Mod /LPF Urine Bacteria Few /HPF (0-FEW) Urine Mucus Mod /LPF Bedside Urine HCG, Qualitative Hcg negative (Negative) Test 10/25/18 01:00 10/25/18 03:55 Troponin I Quantitative 0.295 ng/mL (0.000-0.055) 0.253 ng/mL (0.000-0.055) Sodium Level 141 mmol/L (136-145) Potassium Level 3.7 mmol/L (3.5-5.1) Chloride Level 107 mmol/L (98-107) Carbon Dioxide Level 23 mmol/L (21-32) Anion Gap 11 (6-14) Blood Urea Nitrogen 14 mg/dL (7-20) Creatinine 1.0 mg/dL (0.6-1.0) Estimated GFR (Cockcroft-Gault) 75.5 Glucose Level 127 mg/dL (70-99) Calcium Level 8.1 mg/dL (8.5-10.1) Magnesium Level 1.8 mg/dL (1.8-2.4) Laboratory Tests Test 10/24/18 19:26 10/24/18 19:49 10/24/18 20:07 10/24/18 20:28 White Blood Count 5.5 x10^3/uL (4.0-11.0) Red Blood Count 4.16 x10^6/uL (3.50-5.40) Hemoglobin 9.9 g/dL (12.0-15.5) Hematocrit 31.2 % (36.0-47.0) Mean Corpuscular Volume 75 fL (79-100) Mean Corpuscular Hemoglobin 24 pg (25-35) Mean Corpuscular Hemoglobin Concent 32 g/dL (31-37) Red Cell Distribution Width 18.0 % (11.5-14.5) Platelet Count 414 x10^3/uL (140-400) Neutrophils (%) (Auto) 58 % (31-73) Lymphocytes (%) (Auto) 34 % (24-48) Monocytes (%) (Auto) 5 % (0-9) Eosinophils (%) (Auto) 1 % (0-3) Basophils (%) (Auto) 1 % (0-3) Neutrophils # (Auto) 3.2 x10^3uL (1.8-7.7) Lymphocytes # (Auto) 1.9 x10^3/uL (1.0-4.8) Monocytes # (Auto) 0.3 x10^3/uL (0.0-1.1) Eosinophils # (Auto) 0.1 x10^3/uL (0.0-0.7) Basophils # (Auto) 0.1 x10^3/uL (0.0-0.2) Prothrombin Time 14.3 SEC (11.7-14.0) Prothromb Time International Ratio 1.1 (0.8-1.1) Sodium Level 142 mmol/L (136-145) Potassium Level 3.9 mmol/L (3.5-5.1) Chloride Level 106 mmol/L (98-107) Carbon Dioxide Level 24 mmol/L (21-32) Anion Gap 12 (6-14) Blood Urea Nitrogen 14 mg/dL (7-20) Creatinine 1.1 mg/dL (0.6-1.0) Estimated GFR (Cockcroft-Gault) 67.6 BUN/Creatinine Ratio 13 (6-20) Glucose Level 107 mg/dL (70-99) Calcium Level 8.7 mg/dL (8.5-10.1) Magnesium Level 1.8 mg/dL (1.8-2.4) Total Bilirubin 0.7 mg/dL (0.2-1.0) Aspartate Amino Transf (AST/SGOT) 20 U/L (15-37) Alanine Aminotransferase (ALT/SGPT) 27 U/L (14-59) Alkaline Phosphatase 72 U/L (46-116) Creatine Kinase 87 U/L (26-192) Creatine Kinase MB (Mass) 2.3 ng/mL (0.0-3.6) Creatine Kinase MB Relative Index 2.6 % (0-4) Troponin I Quantitative 0.466 ng/mL (0.000-0.055) OJ-Bxu-Q-Type Natriuretic Peptide 5842 pg/mL (0-124) Total Protein 7.5 g/dL (6.4-8.2) Albumin 3.6 g/dL (3.4-5.0) Albumin/Globulin Ratio 0.9 (1.0-1.7) Lipase 60 U/L (73-393) Lactic Acid Level 1.5 mmol/L (0.4-2.0) Urine Collection Type Unknown Urine Color Yellow Urine Clarity Clear Urine pH 7.0 Urine Specific [place] 1.020 Urine Protein 30 mg/dL (NEG-TRACE) Urine Glucose (UA) Negative mg/dL (NEG) Urine Ketones (Stick) Negative mg/dL (NEG) Urine Blood Negative (NEG) Urine Nitrite Negative (NEG) Urine Bilirubin Negative (NEG) Urine Urobilinogen Dipstick 1.0 mg/dL (0.2 mg/dL) Urine Leukocyte Esterase Moderate (NEG) Urine RBC 1-2 /HPF (0-2) Urine WBC 5-10 /HPF (0-4) Urine Squamous Epithelial Cells Mod /LPF Urine Bacteria Few /HPF (0-FEW) Urine Mucus Mod /LPF Bedside Urine HCG, Qualitative Hcg negative (Negative) Test 10/25/18 01:00 10/25/18 03:55 Troponin I Quantitative 0.295 ng/mL (0.000-0.055) 0.253 ng/mL (0.000-0.055) Sodium Level 141 mmol/L (136-145) Potassium Level 3.7 mmol/L (3.5-5.1) Chloride Level 107 mmol/L (98-107) Carbon Dioxide Level 23 mmol/L (21-32) Anion Gap 11 (6-14) Blood Urea Nitrogen 14 mg/dL (7-20) Creatinine 1.0 mg/dL (0.6-1.0) Estimated GFR (Cockcroft-Gault) 75.5 Glucose Level 127 mg/dL (70-99) Calcium Level 8.1 mg/dL (8.5-10.1) Magnesium Level 1.8 mg/dL (1.8-2.4) VTE Prophylaxis Ordered VTE Prophylaxis Devices: Yes VTE Pharmacological Prophylaxi: Yes Assessment/Plan Assessment/Plan Acute exacerbation of systolic dysfunction Non ischemic cardiomyopathy Pulmonary edema microcytic anemia secondary to iron deficiency most likely Recent [facility] with EF recorded at 25% Plan: maximize medical therapy life vest recommended but unable to afford at the present time will reeval in the am cardiology recommendations greatly appreciated. QING DYER MD Oct 25, 2018 18:59
[2018-10-25] MEDS: hydrALAZINE 25 MG TABLET PO SCH (21:00)
[2018-10-26] MEDS: ALBUTEROL SULFATE 2.5 MG/3 ML NEBU. NEB SCH ×3 (03:20→12:06)
[2018-10-26 03:42] VITALS: BP 85/58
[2018-10-26 07:00] VITALS: BP 93/63
[2018-10-26] MEDS: POTASSIUM CHLORIDE 20 MEQ TABLET.ER. PO SCH (08:23)
[2018-10-26] MEDS: ISOSORBIDE DINITRATE 10 MG TABLET. PO SCH (08:23)
[2018-10-26] MEDS: CARVEDILOL 6.25 MG TABLET. PO SCH (08:23)
[2018-10-26] MEDS: ASPIRIN ENTERIC COATED 81 MG TABLET.DR. PO SCH (08:23)
[2018-10-26] MEDS: BENZONATATE 100 MG CAPSULE. PO SCH (08:23)
[2018-10-26 08:47] LABS: CALCIUM 8.2 mg/dL (8.5-10.1); GFR 75.5; MAGNESIUM 1.8 mg/dL (1.8-2.4); POTASSIUM 3.8 mmol/L (3.5-5.1)
[2018-10-26] MEDS: hydrALAZINE 25 MG TABLET PO SCH (09:00)
--- NOTE | 2018-10-26 10:15 | PDOC ---
SAMANTHA DURBIN [employer]AL HANDLING SUPERVISOR 10/26/18 1015: CARDIO Progress Notes Date and Time Date of Service 10/26/2018 Time of Evaluation 0940 Subjective Subjective: No Chest Pain, No shortness of breath, No Palpitations Vitals Vitals Vital Signs Date Time Temp Pulse Resp B/P (MAP) Pulse Ox O2 Delivery O2 Flow Rate FiO2 10/26/18 08:25 98 Nasal Cannula 2.0 10/26/18 08:23 80 10/26/18 07:00 97.9 18 93/63 (73) 97.9 Weight Weight [ ] Input and Output Intake and Output Intake and Output 10/26/18 06:59 Intake Total 1410 ml Output Total 700 ml Balance 710 ml Intake Oral 1410 ml Output Urine Total 700 ml # Voids 1 Laboratory Labs Laboratory Tests Test 10/26/18 08:25 Sodium Level 140 mmol/L (136-145) Potassium Level 3.8 mmol/L (3.5-5.1) Chloride Level 105 mmol/L (98-107) Carbon Dioxide Level 25 mmol/L (21-32) Anion Gap 10 (6-14) Blood Urea Nitrogen 16 mg/dL (7-20) Creatinine 1.0 mg/dL (0.6-1.0) Estimated GFR (Cockcroft-Gault) 75.5 Glucose Level 89 mg/dL (70-99) Calcium Level 8.2 mg/dL (8.5-10.1) Magnesium Level 1.8 mg/dL (1.8-2.4) Physical Exam HEENT: Neck Supple W Full Motion Chest: Symmetric LUNGS: Clear to Auscultation Heart: S1S2, RRR (SR) Abdomen: Soft N/T Extremities: No Calf Tenderness, Other (trace LE edema) Neurology: alert, oriented, follow commands Assessment Assessment 1. Acute on chronic systolic CHF. NYHA1-2, compensated 2. NICM: EF 20-25% 3. NSTEMI, peaked trop 0.4 demand mediated. Notable for myocardial bridging to distal LAD region 4. Anemia, microcytic 5. CAD; recent LHC noted above with distal apical lesion possibly from thrombus vs SCAD. CP free 6. NSVT x1: expected with her CM, no symptoms. 7. On Mirena IUD Recommendations 1. CM for disability application follow up 2. Discussed CHF symptoms, daily wt, Na control and FR 2L and meds. 3. Lifevest is ideal but would not be able to afford at this time. Will need further outpt optimization as an outpt, entresto candidate 4. Continue lasix. Would not be able to afford toprol and will continue coreg and current nitrates. DC hydralazine as BP is marginal but no symptoms. ASA. 5. Encouraged to follow up in office. 6. ambulate prior to DC and note tolerance and oxygenation JAIDA JUNE MD 10/27/18 0732: CARDIO Progress Notes Assessment Assessment Patient seen and examined 10/26/18. Agree with SANDWICH MAKER's assessment and plan. Acute on chronic systolic heart failure much better compensated Continue current medical regimen Follow-up in 1 month SAMANTHA DURBIN APRN Oct 26, 2018 10:15 JAIDA JUNE MD Oct 27, 2018 07:32
[2018-10-26 10:29] VITALS: BP 94/61
[2018-10-26 10:54] VITALS: BP 91/66
[2018-10-26] MEDS ORDERED: FUROSEMIDE 40 MG TABLET. PO SCH (12:00)
--- NOTE | 2018-10-26 13:10 | NUR ---
Discharge teaching verbal and written. reviewed medications, cardiac diet, chest pain, CHF, ect. Patient verbalized understanding. 1 written prescription for nitro given to patient. Patient assisted off of unit via wheelchair accompanied by family and NURSES' REGISTRY DIRECTOR. All belongings with patient.
--- NOTE | 2018-10-26 14:07 | PDOC3 ---
Discharge Summary Visit Information Date of Admission: Oct 25, 2018 Date of Discharge: Oct 26, 2018 Admitting Diagnosis Comment: Acute exacerbation of systolic dysfunction Non ischemic cardiomyopathy Pulmonary edema microcytic anemia secondary to iron deficiency most likely Recent LHC with EF recorded at 25% Final Diagnosis 1. Acute on chronic systolic CHF. NYHA1-2, improving 2. NICM: EF 20-25% 3. NSTEMI, peaked trop 0.4 demand mediated. Notable for myocardial bridging to distal LAD region 4. Anemia, microcytic 5. CAD; recent LHC noted above with distal apical lesion possibly from thrombus vs SCAD. CP free 6. NSVT x1: expected with her CM, no symptoms. 7. On Mirena IUD and on her menstruation Brief Hospital Course Allergies Allergies Coded Allergies Type Severity Reaction Last Updated Verified lisinopril Allergy Severe Anaphylaxis 03/22/18 Yes tramadol Allergy Severe Anaphylaxis 10/04/18 Yes Vital Signs Vital Signs Date Time Temp Pulse Resp B/P (MAP) Pulse Ox O2 Delivery O2 Flow Rate FiO2 10/26/18 12:07 Nasal Cannula 2.0 10/26/18 10:54 98.1 79 18 91/66 (74) 97 98.1 Lab Results Laboratory Tests Test 10/24/18 19:26 10/24/18 19:49 10/24/18 20:07 10/24/18 20:28 White Blood Count 5.5 x10^3/uL (4.0-11.0) Red Blood Count 4.16 x10^6/uL (3.50-5.40) Hemoglobin 9.9 g/dL (12.0-15.5) Hematocrit 31.2 % (36.0-47.0) Mean Corpuscular Volume 75 fL (79-100) Mean Corpuscular Hemoglobin 24 pg (25-35) Mean Corpuscular Hemoglobin Concent 32 g/dL (31-37) Red Cell Distribution Width 18.0 % (11.5-14.5) Platelet Count 414 x10^3/uL (140-400) Neutrophils (%) (Auto) 58 % (31-73) Lymphocytes (%) (Auto) 34 % (24-48) Monocytes (%) (Auto) 5 % (0-9) Eosinophils (%) (Auto) 1 % (0-3) Basophils (%) (Auto) 1 % (0-3) Neutrophils # (Auto) 3.2 x10^3uL (1.8-7.7) Lymphocytes # (Auto) 1.9 x10^3/uL (1.0-4.8) Monocytes # (Auto) 0.3 x10^3/uL (0.0-1.1) Eosinophils # (Auto) 0.1 x10^3/uL (0.0-0.7) Basophils # (Auto) 0.1 x10^3/uL (0.0-0.2) Prothrombin Time 14.3 SEC (11.7-14.0) Prothromb Time International Ratio 1.1 (0.8-1.1) Sodium Level 142 mmol/L (136-145) Potassium Level 3.9 mmol/L (3.5-5.1) Chloride Level 106 mmol/L (98-107) Carbon Dioxide Level 24 mmol/L (21-32) Anion Gap 12 (6-14) Blood Urea Nitrogen 14 mg/dL (7-20) Creatinine 1.1 mg/dL (0.6-1.0) Estimated GFR (Cockcroft-Gault) 67.6 BUN/Creatinine Ratio 13 (6-20) Glucose Level 107 mg/dL (70-99) Calcium Level 8.7 mg/dL (8.5-10.1) Magnesium Level 1.8 mg/dL (1.8-2.4) Total Bilirubin 0.7 mg/dL (0.2-1.0) Aspartate Amino Transf (AST/SGOT) 20 U/L (15-37) Alanine Aminotransferase (ALT/SGPT) 27 U/L (14-59) Alkaline Phosphatase 72 U/L (46-116) Creatine Kinase 87 U/L (26-192) Creatine Kinase MB (Mass) 2.3 ng/mL (0.0-3.6) Creatine Kinase MB Relative Index 2.6 % (0-4) Troponin I Quantitative 0.466 ng/mL (0.000-0.055) TI-Vyv-U-Type Natriuretic Peptide 5842 pg/mL (0-124) Total Protein 7.5 g/dL (6.4-8.2) Albumin 3.6 g/dL (3.4-5.0) Albumin/Globulin Ratio 0.9 (1.0-1.7) Lipase 60 U/L (73-393) Lactic Acid Level 1.5 mmol/L (0.4-2.0) Urine Collection Type Unknown Urine Color Yellow Urine Clarity Clear Urine pH 7.0 Urine Specific [place] 1.020 Urine Protein 30 mg/dL (NEG-TRACE) Urine Glucose (UA) Negative mg/dL (NEG) Urine Ketones (Stick) Negative mg/dL (NEG) Urine Blood Negative (NEG) Urine Nitrite Negative (NEG) Urine Bilirubin Negative (NEG) Urine Urobilinogen Dipstick 1.0 mg/dL (0.2 mg/dL) Urine Leukocyte Esterase Moderate (NEG) Urine RBC 1-2 /HPF (0-2) Urine WBC 5-10 /HPF (0-4) Urine Squamous Epithelial Cells Mod /LPF Urine Bacteria Few /HPF (0-FEW) Urine Mucus Mod /LPF Bedside Urine HCG, Qualitative Hcg negative (Negative) Test 10/25/18 01:00 10/25/18 03:55 10/26/18 08:25 Troponin I Quantitative 0.295 ng/mL (0.000-0.055) 0.253 ng/mL (0.000-0.055) Sodium Level 141 mmol/L (136-145) 140 mmol/L (136-145) Potassium Level 3.7 mmol/L (3.5-5.1) 3.8 mmol/L (3.5-5.1) Chloride Level 107 mmol/L (98-107) 105 mmol/L (98-107) Carbon Dioxide Level 23 mmol/L (21-32) 25 mmol/L (21-32) Anion Gap 11 (6-14) 10 (6-14) Blood Urea Nitrogen 14 mg/dL (7-20) 16 mg/dL (7-20) Creatinine 1.0 mg/dL (0.6-1.0) 1.0 mg/dL (0.6-1.0) Estimated GFR (Cockcroft-Gault) 75.5 75.5 Glucose Level 127 mg/dL (70-99) 89 mg/dL (70-99) Calcium Level 8.1 mg/dL (8.5-10.1) 8.2 mg/dL (8.5-10.1) Magnesium Level 1.8 mg/dL (1.8-2.4) 1.8 mg/dL (1.8-2.4) Laboratory Tests Test 10/26/18 08:25 Sodium Level 140 mmol/L (136-145) Potassium Level 3.8 mmol/L (3.5-5.1) Chloride Level 105 mmol/L (98-107) Carbon Dioxide Level 25 mmol/L (21-32) Anion Gap 10 (6-14) Blood Urea Nitrogen 16 mg/dL (7-20) Creatinine 1.0 mg/dL (0.6-1.0) Estimated GFR (Cockcroft-Gault) 75.5 Glucose Level 89 mg/dL (70-99) Calcium Level 8.2 mg/dL (8.5-10.1) Magnesium Level 1.8 mg/dL (1.8-2.4) Brief Hospital Course Patient is a 38 year old female with past medical history of post cardiomyopathy who wa in her usual state of health until more or less 5 days prior to her admission She refers dyspnea initially to exertion which has progressively gotten worse to the pooint that she is reporting PND and orthopnea the day prior to her admission. She denies dietary transgression, she has been adherent to her medications. Patient denies recent infections no cough or sputum production prior to her acute presentation on the day of admission. She was found to be in pulmonary edema as per report from ED physician, she compalined of pain precordial with no radiation she had sensation of impending doom reasaon why seh came to the er for evlauation. Patient had an elevated troponin level and pulmonary edema on imagin studies. She is being admitted for further treatment. Patient was admitted for diuresis and treatment of her acute symptoms. The patient's medications were also adjusted. Unfortunately due to financial constraints the patient is unable to afford LifeVest at this time. Hydralazine was discontinued and also due to monetary constraints patient is unable to afford the metoprolol XL that she was prescribed. Continue with Coreg at the present time lengthy conversation took place regarding insult dietary transgressions. She acknowledged understanding of all the recommendations and instructions, she will be following up with cardiology in the outpatient setting as scheduled Gen.: well-developed well-nourished in no apparent distress Head: Normal shape atraumatic Eyes: Pupils equal reactive to light and accommodation, normal conjunctivae and lids Ears: Normal shape Nose: Normal shape no trauma Mouth: No exudates of the back of throat no thrush no lesions Neck: Supple no JVD no carotid bruit or lymphadenopathy no thyromegaly Chest: Lungs clear to auscultation with good inspiratory effort no crackles rales or rhonchi Cardiovascular: S1-S2 regular rhythm no murmurs gallops or rubs Abdomen: Bowel sounds present soft nontender no hepatosplenomegaly appreciated sign Extremities: No clubbing no cyanosis no edema peripheral pulses palpated bilaterally Neurological: Alert awake oriented in person time place and situation, cranial nerves II through XII intact, no motor or sensory deficits appreciated Psych: Appropriate mood, cooperative Discharge Information Condition at Discharge: Improved Follow Up: Weeks Disposition/Orders: D/C to Home Scheduled Albuterol Sulfate (Ventolin Hfa Inhaler) 18 Gm Hfa.aer.ad, 2 PUFF INH Q4HRS for FOR ASTHMA, #1 Ref 0 Prescribed by: Sonal Guy APRN on 09/05/18 1210 Last Action: Converted on 10/25/181016 by QING DYER MD Aspirin (Aspirin Ec) 81 Mg Tablet.dr, 81 MG PO DAILYWBKFT, #30 Ref 2 Prescribed by: LEIGH TITUS on 11/19/15 0951 Last Action: Continued on 10/25/181016 by QING DYER MD Benzonatate (Tessalon Perle) 100 Mg Capsule, 1 CAP PO TID, #30 Prescribed by: Sonal Guy APRN on 09/05/18 1210 Last Action: Converted on 10/25/181016 by QING DYER MD Carvedilol (Coreg ) 6.25 Mg Tablet, 6.25 MG PO BIDWMEALS for CARDIAC, ( Reported) Entered as Reported by: MYA GOYAL on 10/05/18 1129 Last Action: Continued on 10/25/18 101 by QING DYER MD Furosemide (Lasix) 40 Mg Tablet, 1 TAB PO DAILY for chf, #90 Ref 1 (Reported) Entered as Reported by: SEGUNDO MAYORGA on 09/09/18 1556 Last Action: Continued on 10/25/18 1017 by QING DYER MD Isosorbide Dinitrate (Isosorbide Dinitrate) 10 Mg Tablet, 10 MG PO TID for chest pain for 30 Days, #90 Prescribed by: BOB FOSTER MD on 10/05/181111 Last Action: Continued on 10/25/181016 by QING DYER MD Potassium Chloride (Potassium Chloride) 20 Meq Tablet.er, 20 MEQ PO DAILY for electrolyte replacement, (Reported) Entered as Reported by: SEGUNDO MAYORGA on 09/09/18 8975 Last Action: Converted on 10/25/181016 by QING DYER MD Scheduled PRN Nitroglycerin (Nitrostat) 0.4 Mg Tab.subl, 0.4 MG SL PRN Q5MIN PRN for CHEST PAIN for 30 Days, #90 Prescribed by: OBB FOSTER MD on 10/08/181455 Last Action: Continued on 10/25/181016 by QING DYER MD Discontinued Medications Hydralazine Hcl (Hydralazine Hcl) 25 Mg Tablet, 25 MG PO TID for blood pressure / heart for 30 Days, #90 Prescribed by: BOB FOSTER MD on 10/05/181111 Last Action: Converted on 10/25/181016 by QING DYER MD Metoprolol Succinate (Metoprolol Succinate ( Xl )) 25 Mg Tab.er.24h, 12.5 MG PO DAILY for blood pressure for 28 Days, #14 Prescribed by: BOB FOSTER MD on 10/08/181455 Last Action: Continued on 10/25/181016 by MD MANISHA WOODRUFF HECTOR M MD Oct 26, 2018 14:07
== END 2018-10-26 13:09 | disposition home or self-care (01) | DRG 280 ==
LOC: ER 19:11 → 2 NORTH 22:05
PROVIDERS: ADMIT Internal Medicine; ATTEND Internal Medicine
DX: I21.4 Non-ST elevation (NSTEMI) myocardial infarction (principal); I50.23 Acute on chronic systolic (congestive) heart failure; I42.9 Cardiomyopathy, unspecified; I47.2 Ventricular tachycardia; I27.20 Pulmonary hypertension, unspecified; I11.0 Hypertensive heart disease with heart failure; D50.9 Iron deficiency anemia, unspecified; I25.10 Atherosclerotic heart disease of native coronary artery without angina pectoris; F17.210 Nicotine dependence, cigarettes, uncomplicated; F12.90 Cannabis use, unspecified, uncomplicated; Z82.49 Family history of ischemic heart disease and other diseases of the circulatory system
CPT/HCPCS: 36415; 71275; 80048; 80053; 81001; 81025; 82553; 83605; 83690; 83735; 83880; 84484; 85025; 85610; 87086; 93005; 94640; 94760; 96361; 96374; 96375; J1940; J2405; J3010; J3490; J7040; J7613; Q9967; 99285-25